=== PATIENT | female | born 1955 | race Caucasian/White ===

== ENCOUNTER 2024-07-03 13:46 | Outpatient (CLI) | payer MEDICARE, SELFPAY ==
--- NOTE | ~2024-07-03 | DEXA_ITS ---
Bone Density Report Name: JOSE ALFREDO BEAVER Age: 69 Sex: Female Ethnicity: White Date of : 1955 Indication: postmenopausal; screening for osteoporosis; Referring Provider: CHARLEY, YUMI Johnson Study: Bone densitometry was performed. Exam Date: July 03, 2024 Accession number: [id number] Bone Density: Region BMD T-score Z-score Classification AP Spine(L1-L4) 1.002 -0.4 1.5 Normal Femoral Neck (Left) 0.688 -1.5 0.2 Osteopenia Total Hip (Left) 0.863 -0.7 0.7 Normal Femoral Neck (Right) 0.716 -1.2 0.4 Osteopenia Total Hip (Right) 0.888 -0.4 0.9 Normal Femoral Neck Mean 0.702 -1.3 0.3 Osteopenia Total Hip Mean 0.876 -0.5 0.8 Normal World Health Organization criteria for BMD impression classify patients as: Normal (T-score at or above -1.0), Osteopenia (T-score between -1.0 and -2.5), or Osteoporosis (T-score at or below -2.5). Clinical Information Provided by Patient: Has used the following medications: Vitamin D Patient maximum height was 61 Menopause Age: 44 Drinks caffeinated beverages Onset of menses at age 13 Number of children 2 Missed period for more than 6 months in a row Impression: The patient has low bone mass, based on the Left Femoral Neck T-score. Discussion: BONE DENSITY IS LOW AT ONE OR MORE SKELETAL SITES. This patient's lowest T-score is low at one or more skeletal sites. It meets the World Health Organization's (WHO) criteria for ?low bone mass? (T-score between -1.0 and -2.5). The patient's 10-year risk of fracture as calculated by FRAX is less than the threshold where pharmacological therapy is recommended by the National Osteoporosis Foundation (NOF). However, all treatment decisions require clinical judgment and consideration of individual patient factors, including patient preferences, comorbidities, previous drug use, risk factors not captured in the FRAX model (e.g., frailty, falls, vitamin D deficiency, increased bone turnover, interval significant decline in bone density) and possible under or overestimation of fracture risk by FRAX. The patient should follow a healthful lifestyle (good nutrition with adequate calcium and vitamin D, and appropriate weight-bearing exercise). Follow-Up: Consider repeating this study in 2 to 3 years to reassess this patient's status, or sooner if there is some new clinical indication. Reported by: RADHA on 07/03/2024 2:06:00 PM. Reviewed, dictated and finalized at location A.
--- OUTSIDE RECORDS SUMMARY | 2024-07-03 14:34 | XMS_ITS | Referral Summary ---
Author Organization [facility] Address [address] [place] [address] Care Team Providers Care Seismic Plotter Name Role Phone Debbie Doran MD Primary Care Provider [phone] Debbie Perkins COMMUNICATIONS EQUIPMENT INSTALLER-[employer] Unavailable [phone] Source Comments [facility],non-owned Affiliates and Associated Physician Practices is amultiple site organization consisting of ambulatory clinics and hospital sitesin [place], [place], [place] and [place]. This disclosure is being madepursuant to the Care Everywhere program and may not contain all information available regarding this patient. Last updated 18.[facility] Encounters Date Type Department Care Team Description 06/06/2024 Refill [facility] - Family Medicine [address] [place] [phone] Cristina Perkins, COMMUNICATIONS EQUIPMENT INSTALLER[employer] Refill Request 04/15/2024 Patient Outreach [facility] - Care Coordination [facility] [place] [phone] Kirsten Bean from Last 3 Months Allergies Active Allergy Reactions Criticality Noted Date Comments Azithromycin Rash Medium 01/10/2023 Hydrocodone-Acetaminoph en Nausea and/or Vomiting 08/31/2009 Lortab Nausea and/or Vomiting 08/31/2009 Metformin Diarrhea,Nausea and/or Vomiting 02/07/2014 Nausea and vomiting Nalbuphine Rash Medium 08/31/2009 Penicillins Urticaria,Rash,Skin Reactions Medium 08/31/2009 Prednisone Urticaria,Rash,Skin Reactions Medium 08/31/2009 blisters Sulfa Antibiotics Urticaria,Rash,Skin Reactions Medium 08/31/2009 Sumatriptan Itching 03/08/2023 Medications * Be aware that medications may not be up to date on this document. Alwaysverify current medications with the patient. Medication Sig Dispensed Refills Start Date End Date Status albuterol (Accuneb) 1.25 MG/3ML nebulizer solution USE 1 VIAL IN NEBULIZER EVERY 6 HOURS NEEDED FOR SHORTNESS OF BREATH Active Apremilast (Otezla) 30 MG Take 1 (one) tablet by mouth 2 times daily Active aspirin EC (Ecotrin) 81 MG tablet Take 1 (one) tablet by mouth once daily Active atorvastatin (Lipitor) 80 MG tablet Take 1 (one) tablet by mouth once daily 4 Active Continuous Glucose Sensor (FreeStyle Naz 2 Sensor Systm) MISC USE DIRECTED 4 TIMES DAILY 4 Active ezetimibe (Zetia) 10 MG tablet TAKE 1 TABLET BY MOUTH ONCE DAILY DIRECTED Active BD Pen Needle Shauna 2nd Gen 32G X 4 MM [facility] [place] USE 1 TO INJECT INSULIN SIX TIMES DAILY 3 Active isosorbide mononitrate CR 24hr (Imdur) 30 MG tablet Take 1 (one) tablet by mouth once daily Active lisinopril (Prinivil; Zestril) 5 MG tablet Take 1 (one) tablet by mouth once daily 3 Active LORazepam (Ativan) 0.5 MG tablet Take 1 (one) tablet by mouth 2 times daily as needed Active metoprolol tartrate IR (Lopressor) 100 MG tablet Take 1 (one) tablet by mouth 2 times daily 3 Active nitroGLYCERIN (Nitrostat) 0.4 MG tablet DISSOLVE ONE TABLET UNDER THE TONGUE EVERY 5 MINUTES NEEDED FOR CHEST PAIN. DO NOT EXCEED A TOTAL OF 3 DOSES IN 15 MINUTES Active ondansetron, disintegrating, (Zofran ODT) 4 MG tablet DISSOLVE 1 TABLET IN MOUTH EVERY 6 HOURS NEEDED FOR NAUSEA Active pregabalin (Lyrica) 75 MG capsule Take 1 (one) capsule by mouth 2 times daily Active Xarelto 20 MG tablet Take 1 (one) tablet by mouth once daily Active Trintellix 20 MG tabletIndication s:Moderate episode of recurrent major depressive disorder (HCC) Take 1 (one) tablet by mouth once daily 90 tablet 1 4 Active blood glucose (FREESTYLE LITE STRIPS) test strip USE 1 STRIP TO CHECK GLUCOSE 4 TIMES DAILY Active Continuous Glucose Airborne Electronics Analyst (FreeStyle Naz 2 [place] Systm) CANDI USE TO TEST BLOOD SUGAR 4 TIMES DAILY Active FreeStyle Lancets MISC USE DIRECTED 4 TIMES DAILY Active Lantus SoloStar penIndications:T ype 2 Diabetes Mellitus Inject 10 (ten) Units subcutaneously every 24 hours Reasons: Type 2 Diabetes 15 mL 1 4 Active albuterol HFA (Proventil; Ventolin; Proair) 108 (90 Base) MCG/ACT inhalerIndicatio ns:Moderate COPD (chronic obstructive pulmonary disease) ([facility]) INHALE 1 TO 2 PUFFS BY MOUTH EVERY 4 HOURS NEEDED 18 g 5 Active albuterol HFA (Proventil; Ventolin; Proair) 108 (90 Base) MCG/ACT inhalerIndicatio ns:Chronic Obstructive Pulmonary Disease INHALE 1 TO 2 PUFFS BY MOUTH EVERY 4 HOURS NEEDED Reasons: Chronic Obstructive Lung Disease 36 g 4 06/10/19 25 Discontinued Active Problems Problem Noted Date Diagnosed Date Other chronic pulmonary embo lism without acute cor pulmonale 03/26/2024 Atherosclerosis of [place] co ronary artery of [place] heart with angina pectoris 03/26/2024 Moderate COPD (chronic obstructive pulmonary dis ease) 02/23/2024 Moderate episode of recurrent major depressive d isorder 02/23/2024 Morbid obesity with BMI of 40.0-44.9, adult 02/04 Immunizations Name Administration Dates Next Due INFLUENZA VACCINE, TRIV. (AF LURIA, FLUZONE TRIVALENT; 6MO+) (IIV3) 03/19/2014 Covid Moderna primary monovalent 12+ yr 0.5mL FLU VACCINE QUAD IIV4 SPLIT 0.25 ML IM 5 FLU VACCINE TRI IIV3 SPLIT PF IM (FLUVIRIN) 05/06 HEP A VACCINE, ADULT 11/15/2013 HEP B VACCINE, ADULT 3 DOSE 11/15/2013, 2 INFLUENZA VACCINE, QUADR. (F LUZONE; FLULAVAL; FLUARIX; AFLURIA QUADRIVALENT; 6MO+), 0.5 ML (IIV4) 04/07/2020,03/22/2019 PNEUMOCOCCAL PPSV23 12/09/2014 Td (Adult), 2 Lf Tetanus Toxoid, Adsorbed, Pf Zoster Hzv Vacc Recombinant Inj Im 03/22/2024, Social History Tobacco Use Types Packs/Day Years Used Date Smoking Tobacco: Never Smokeless Tobacco: Never Tobacco Cessation:Counseling Given: Not Answered Alcohol Use Standard Drinks/Week Comments Yes 0 (1 standard drink = 0.6 oz pur e alcohol) PHQ-2 Answer Date Recorded Patient Health Questionnaire-2 Score 2 03/26/2024 Sex and Gender Information Value Date Recorded Sex Assigned at Not on file Gender Identity Not on file Sexual Orientation Not on file Last Filed Vital Signs Vital Sign Reading Time Taken Comments Blood Pressure 110/51 03/26/2024 2:30 PM CDT Pulse 69 03/26/2024 2:30 PM CDT Temperature 36.9 ??C (98.5 ??F) 03/26/2024 2:30 PM CD T Respiratory Rate 18 03/26/2024 2:30 PM CDT Oxygen Saturation 95% 03/26/2024 2:30 PM CDT Inhaled Oxygen Concentration - - Weight 88.7 kg (195 lb 9.6 oz) 03/26/2024 2:30 P M CDT Height 154.9 cm (5' 1 ) 03/26/2024 2:30 PM CDT Body Mass Index 36.96 03/26/2024 2:30 PM CDT Plan of Treatment Not on file Procedures Procedure Name Priority Date/Time Associated Diagnosis Comments HEMOGLOBIN A1C - POINT OF CARE (AMB) Routine 02/23/2024 1:33 PM CDT Type 2 diabetes mellitus with diabetic polyneuropathy, with long-term current use of insulin (HCC) MAMMO BILAT SCREENING W SAMUEL Routine 01/02/2024 3:10 PM CDT Encounter for screening mammogram for malignant neoplasm of breast from Last 3 Months or Most Recently Relevant to Health Maintenance Results * HEMOGLOBIN A1C - POINT OF CARE (HgbA1C) (02/23/2024 1:33 PM CDT) Hemoglobin A1c POCT 7.6 % [facility] [place] Expiration Date [facility] [place] Lot # [id number] [facility] [place] QC Verified Yes Yes [facility] [place] Blood BLOOD SPECIMEN / Unknown 02/23/2024 1:33 PM CDT Cristina Perkins COMMUNICATIONS EQUIPMENT INSTALLER-[employer] LAB - POINT OF CARE ORDERABLES [facility] [place] [phone] * Mammo Bilat Screening W Samuel (01/02/2024 3:10 PM CDT) Anatomical Region Laterality Modality Breast Bilateral Mammography 01/16/2024 11:2 1 AM CDT Impressions 01/16/2024 1:18 PM CDT : There is no mammographic evidence of malignancy. OVERALL FINAL ASSESSMENT: BI-RADS Category 1: Negative. Annual screening mammography is recommended. > Interpreting Provider: Hemalatha Little MD on 01/16/2024 1:18 PM Narrative 01/16/2024 1:18 PM CDT EXAMINATION: BILATERAL DIGITAL SCREENING MAMMOGRAM AND BILATERAL BREAST TOMOSYNTHESIS HISTORY: Screening. COMPARISON: This is the patient's baseline mammogram. . TECHNIQUE: ??BILATERAL digital breast tomosynthesis (DBT) and synthetic 2D digital mammogram images were obtained (bilateral craniocaudal and mediolateral oblique projections) including computer aided detection (CAD.) BREAST PARENCHYMAL COMPOSITION:Category B: There are scattered areas of fibroglandular density. MAMMOGRAM FINDINGS: There are no suspicious masses, calcifications, or areas of architectural distortion in either breast. Debbie Doran MD MAMMO ORDERABLES from Last 3 Months or Most Recently Relevant to Health Maintenance Care Teams Seismic Plotter Relationship Specialty Start Date End Date Debbie Doran MD [address] [place] [address] PCP - General Family Medicine 02/23/24 Debbie Perkins, COMMUNICATIONS EQUIPMENT INSTALLER[employer] [address] [place] [phone] PCP - [facility], [facility] 03/05/24
--- OUTSIDE RECORDS SUMMARY | 2024-07-03 14:34 | XMS_ITS | Data Portability ---
Author Organization Formerly [facility] in [facility] Address [address] [place] [address] Care Team Providers Care Radiation Technician Name Role Phone DOC POOLE Referring Provider [phone] NATALIE KIMBROUGH Pain Management Unavailable MARK FLEMING Primary Care Provider Assessment Encounter Date Assessment Date Assessment LastModified by Organization Details LastModified Time 06/19/2020 06/19/2020 65-year-old female with a history of neck pain that began about 6 months ago without incident. She complains of a constant aching throbbing burning pain in the right cervical paraspinal region with radiation of the right trapezius muscle into the shoulder joint and then diffusely in the right upper extremity all the way to the fingers. She does report some paresthesias and weakness in the upper extremities as well. Of note she has seen Dr. Villa who did not feel surgery is warranted and has recently seen Dr. Poole She has a CT myelogram which shows severe right-sided foraminal stenosis at C6-7, with moderate central stenosis. She has a large disc osteophyte complex at this level. She also has some moderate stenosis mostly on the left at C5-6 and some left-sided foraminal stenosis at that level as well. She has done physical therapy from February 2020 to present day and goes twice weekly without any long-term benefit She is currently taking gabapentin and Percocet with some relief in her symptoms. On examining her today she does seem to have symptomatic stenosis. Unfortunately we cannot do her injection today in the office because we have to get approval to get her off her blood thinner and we have not heard back yet from this. We will go ahead and order the injection and once we get approval to get off her blood thinner we will call her to schedule. She will plan on following up with Dr. Lauren? c re after the injection is completed. Not available 06/19/2020 10:01:22 09/08/2020 09/08/2020 65-year-old female with a history of neck pain that began in 2019. She complains of a constant aching, throbbing pain in the right cervical paraspinal region with intermittent radicular pain down the right arm stopping at the hand. She reports radicular pain is worse than neck pain. She does report paresthesias in the right arm, as well as some subjective weakness. She has had surgical consultation with Dr. Poole and he recommended she trial injection therapy. She has a CT myelogram which shows severe right-sided foraminal stenosis at C6-7, with moderate central stenosis. She has a large disc osteophyte complex at this level. She also has some moderate stenosis mostly on the left at C5-6 and left-sided foraminal stenosis at that level. She has recently attended physical therapy and continues a home exercise program as tolerated. 07/03/2020 : #1 KEVYN Right C6/C7: 75% pain relief lasting until next injection. 08/07/2020: #2 KEVYN C6/7: 80% pain relief lasting 5 days then weaning back to normal as of 09/08/2020. She is currently taking Gabapentin and Percocet from her PCP. We do not prescribe her any medications. Today I have instructed the pt to follow up with Dr. Poole. She may follow up with our services as needed. [email or web address] Not available 09/08/2020 16:31:46 Plan of Treatment Reminders Order Date Submit Date Provider Last Modified By Organization Details Last Modified Time Details Appointments None recorded. Lab None recorded. Referral None recorded. Procedures epidural steroid injection, cervical (PROC) - #1 KEVYN Rt. C6/C7 2020 021 [email or web address] Not available 16:14:01 epidural steroid injection, cervical (PROC) - #2 KEVYN C6/C7-- cardiac clearance 2020 021 [email or web address] Not available 12:06:15 Surgeries None recorded. Imaging None recorded. Medication Orders None recorded. Patient TargetsNo targets recorded. Patient Instructions Encounter Date Encounter Id Patient Instructions Last Modified By Organization Details Last Modified Time 06/19/2020 [id number] cardiac clearance* - Pt. is scheduled for KEVYN injection and is currently taking Xarelto and ASA. We are asking pt. to hold Xarelto 3 days prior and ASA 7 days prior to injection. Please fax cardiac clearance to [phone] LEYLA thank you. [email or web address] Not available 07/10/2020 11:34:22 Opioid Risk Tool (ORT)* Not available 06/19/2020 11:22:25 Much of this encounter is an electronic cocktail waitress/tra nslation of spoken language to printed text. The electronic translation of spoken language may permit erroneous or at times nonsensical words of phrases to be inadvertently transcribed; Although I have reviewed the note for such errors, some may still exist. Not available 06/19/2020 10:02:40 08/07/2020 [id number] cervical disc disease: care instructions Not available 08/07/2020 16:14:29 09/08/2020 [id number] [email or web address] Not available 11/2020 15:37:01 Reason for Referral None Reported. Results Created Date Observation Date Name Description Value Unit Range Abnormal Flag Note LastModifiedBy Organization Detail LastModifiedTime 06/15/19 21 03/26/2020 CT, cervi margot spine , post- myelo gram No observ ation record ed. [email or web address] Not Available 2020 08:24:17 Result Notes None recorded. Problems Name Problem SNOMED Code Status Onset Date Resolution Date Notes Provider Name and Address Organization Details Recorded Time Neck pain 89577870 Active Jessie Restrepoa ANGEL stern - [facility] 09:29:10 Cervical spondylosis 251207770 Active Jessie Trang null, ANGEL - [facility] 09:29:29 Degeneration of cervical intervertebra l disc 14775181 Active 2020 Sherry Cervantes, [employer] [address] [place], [address] , [facility] 16:31:52 Cervical radiculopathy 55230991 Active 2020 Sherry Cervantes APRN [address] [place], [address] , [facility] 16:31:53 Problem Notes None recorded. Procedures Surgical History Date Name Laterality Status Provider Name and Address Organization Details Recorded Time 08/08/19 21 Cervical Epidural Steroid Injection: Interlaminar completed Natalie Kimbrough MD [address] [place], [address], [facility] 08/07/2020 16:14:27 07/03/19 21 Cervical Epidural Steroid Injection: Interlaminar completed September Ramirez [facility] 07/03/2020 16:05:13 06/05/19 19 coronary artery bypass grafts x 2 completed [facility] 06/19/2020 09:30:28 06/05/19 18 Unlisted px salivry glnd/dux completed [facility] 06/19/2020 09:30:44 06/05/19 09 cardiac pacemaker procedure completed [facility] 06/19/2020 09:31:02 Imaging Results Imaging Date Name Status LastModified by Organiz ation Details LastModified Time 03/26/2020 CT, cervical spine, post-myelogra m completed [email or web address] Information not available 06/15/2020 08:24:17 Procedure Notes None recorded. Medical Equipment None Reported. Allergies Allergen ID Allergen Name Allergen Category Reaction Reaction Severity Criticality Documentation Date Start Date Code Code System Note Provider Name and Address Organization Details Recorded Time 089353 azithromy ryanne medicatio n rash Not available Not available 06/19/2020 51556 RxNorm Jessie stern [facility] 09:22:15 005303 Product containin g penicilli n and antibioti c (product) medicatio n Not available Not available Not available 06/19/2020 01357 05 [facility] 09:22:29 679340 Substance with sulfonami de structure and antibacte rial mechanism of action (substanc e) medicatio n Not available Not available Not available 06/19/2020 18008 8003 SNOMED ANGEL [facility] 09:22:34 965668 metformin medicatio n Not available Not available Not available 06/19/2020 6809 RxNorm ANGEL [facility] 09:22:58 Medications Name Sig Start Date Stop Date Status Note LastModified by Organization Details LastModified Time atorvastati n 40 mg tablet TAKE 1 TABLET BY MOUTH ONCE DAILY active Not Available Not Available No t Available atorvastati n 80 mg tablet TAKE 1 TABLET BY MOUTH ONCE DAILY 09/08 completed Not Available Not Available Not Available dexamethaso ne 6 mg tablet Take 1 tablet every day by oral route. 09/08 completed Not Available Not Available Not Available aspirin 81 mg tablet,steffen yed release Take 1 tablet every day by oral route. active Not Available Not Available No t Available Imitrex 50 mg tablet Take by oral route. active Not Available Not Available No t Available oxycodone-a cetaminophe n 5 mg-325 mg tablet TAKE 1 TABLET BY MOUTH TWICE DAILY NEEDED active Not Available Not Available No t Available lorazepam 0.5 mg tablet TAKE 1 TABLET BY MOUTH THREE TIMES DAILY NEEDED FOR ANXIETY active Not Available Not Available No t Available methocarbam ol 750 mg tablet TAKE 1 TABLET BY MOUTH 4 TIMES DAILY FOR 6 DAYS 06/19 completed Not Available Not Available Not Available ferrous sulfate 325 mg (65 mg iron) tablet TAKE 1 TABLET BY MOUTH ONCE DAILY WITH BREAKFAST 2020 active Not Available Not Available Not Avai lable hyoscyamine 0.125 mg sublingual tablet DISSOLVE 1 TABLET IN MOUTH EVERY 4 HOURS FOR CRAMPING 09/08 completed Not Available Not Available Not Available nitroglycer in 0.4 mg sublingual tablet DISSOLVE ONE TABLET UNDER THE TONGUE EVERY 5 MINUTES NEEDED FOR CHEST PAIN. DO NOT EXCEED A TOTAL OF 3 DOSES IN 15 MINUTES 01/15/ 2021 active Not Available Not Available Not Avai lable gabapentin 300 mg capsule TAKE 1 CAPSULE BY MOUTH THREE TIMES DAILY 06/19 completed Not Available Not Available Not Available oxycodone-a cetaminophe n 7.5 mg-325 mg tablet TAKE 1 TABLET BY MOUTH EVERY 6 HOURS NEEDED FOR PAIN 06/19 completed Not Available Not Available Not Available methylpredn isolone 4 mg tablets in a dose pack TAKE BY MOUTH DIRECTED ON INSIDE OF PACKAGE 06/19 completed Not Available Not Available Not Available ondansetron 4 mg disintegrat ing tablet DISSOLVE 1 TABLET IN MOUTH EVERY 8 HOURS NEEDED FOR NAUSEA active Not Available Not Available No t Available diazepam 5 mg tablet TAKE 1 TABLET BY MOUTH EVERY 12 HOURS NEEDED FOR MUSCLE SPASM 06/19 completed Not Available Not Available Not Available Vitamin B12 100 mcg tablet Take by oral route. active Not Available Not Available No t Available insulin lispro (U-100) 100 unit/mL subcutaneou s pen active Not Available Not Available Not Available ezetimibe 10 mg tablet TAKE 1 TABLET BY MOUTH ONCE DAILY active Not Available Not Available No t Available insulin aspart (U-100) 100 unit/mL (3 mL) subcutaneou s pen INJECT 20 UNITS SUBCUTANE OUSLY 4 TIMES DAILY WITH MEALS PLUS AGGRESSIV E SLIDING SCALE FOUR TIMES DAILY NEEDED WITH MEALS AND BEDTIME SNAC 2020 active Not Available Not Available Not Avai lable metoprolol tartrate 25 mg tablet TAKE 1 TABLET BY MOUTH TWICE DAILY 2020 active Not Available Not Available Not Avai lable pregabalin 50 mg capsule TAKE 1 CAPSULE BY MOUTH AT BEDTIME FOR 2 DAYS THEN TAKE 1 TWICE DAILY 06/19 completed Not Available Not Available Not Available pregabalin 75 mg capsule active Not Available Not Available Not Available FreeStyle Lite Strips USE 1 STRIP TO CHECK GLUCOSE 4 TIMES DAILY 06/19 completed Not Available Not Available Not Available Xarelto 20 mg tablet TAKE 1 TABLET BY MOUTH ONCE DAILY active Not Available Not Available No t Available Otezla 30 mg tablet active Not Available Not Available No t Available Levemir FlexTouch U-100 Insulin 100 unit/mL (3 mL) subcutaneou s pen INJECT 70 UNITS SUBCUTANE OUSLY ONCE DAILY IN THE MORNING 2020 active Not Available Not Available Not Avai lable Jardiance 25 mg tablet TAKE 1 TABLET BY MOUTH ONCE DAILY FOR 90 DAYS active Not Available Not Available No t Available Rexulti 1 mg tablet TAKE 1 TABLET BY MOUTH AT BEDTIME active Not Available Not Available No t Available cholecalcif maria del rosario (vit D3) 1,000 unit-vitami n K2 (MK4) 100 mcg tablet Take by oral route. active Not Available Not Available No t Available Repatha SureClick 140 mg/mL subcutaneou s pen injector INJECT 1 ML SUBCUTANE OUSLY EVERY 2 WEEKS DIRECTED active Not Available Not Available No t Available Trintellix 20 mg tablet TAKE 1 TABLET BY MOUTH ONCE DAILY active Not Available Not Available No t Available FreeStyle Naz 14 Day Sensor kit USE DIRECTED TO CHECK BLOOD SUGAR 4 TIMES DAILY. CHANGE SENSOR EVERY 14 DAYS. active Not Available Not Available No t Available BD Shauna 2nd Gen Pen Needle 32 gauge x 5/32 USE 1 NEEDLE 4 TIMES DAILY active Not Available Not Available No t Available Vitals Date Recorded Body height Provider Name an d Address Organization Details Last Updated DateTime 06/19/2020 152.4 cm Jessie ORTIZ [facility] 06/19/2020 09:20:59 Date Recorded Body mass index (BMI) Body weight Provider Name and Address Organization Details Last Updated DateTime 06/19/2020 42 kg/m2 57550.36 g Jessie ORTIZ - [facility] 06/19/2020 09:21:06 Date Recorded Body height Provider Name an d Address Organization Details Last Updated DateTime 09/08/2020 152.4 cm Anel ORTIZ [facility] 09/08/2020 15:56:00 Date Recorded Body mass index (BMI) Body weight Provider Name and Address Organization Details Last Updated DateTime 09/08/2020 42.2 kg/m2 17382.95 g Anel ORTIZ - [facility] 09/08/2020 15:56:09 Social History Question Answer Notes LastModified by Organizat ion Details LastModified Time Tobacco Smoking Status Never Smoker Jessie stern [facility] 06/19/2020 09:29:58 What Is Your Level Of Alcohol Consumption? Occasional Information not available 06/19/2020 Which Illicit Or Recreational Drugs Have You Used? Denies Information not available 06/19/2020 Do You Or Have You Ever Used E-cigarettes Or Vape? Never Used Electronic Cigarettes Information not available 09/08/2020 Education 12 Information no t available 09/08/2020 Prescription Drug Abuse No Information not available 06/19/2020 History Of Sexual Abuse No Information not available 06/19/2020 What Was The Date Of Your Most Recent Tobacco Screening? 09/08/2020 Information not available 09/08/2020 Do You Or Have You Ever Used Smokeless Tobacco? Never Used Smokeless Tobacco Information not available 09/08/2020 How Much Tobacco Do You Smoke? No Information not available 09/08/2020 On What Date Was Tobacco Cessation Counseling Provided? 09/08/2020 Information not available 09/08/2020 How Many Years Have You Smoked Tobacco? 0 Information not available 09/08/2020 Sex: Unknown Functional Status Question Answer Note LastModified by Organizat ion Details LastModified Time What is your exercise level? Occasional Information not available 09/08/2020 Mental Status None recorded. Family History Relationship Description Onset Age of this Age Resolved Age Notes LastModified by Organization Details LastModified Time Paternal Grandfather Diabetes mellitus Not available 2020 09:22:18 Paternal Grandmother Diabetes mellitus Not available 2020 09:22:18 Sister Diabetes mellitus Not available 2020 09:22:18 Medical History Condition Response Bipolar Disease N Coronary Artery Disease N Gout N Seizure Disorder N Thyroid Disease N Atrial Fibrillation Y Hernia N Head Trauma/Injury N COPD Y Depression Y Anxiety Disorder Y Acid Reflux (GERD) N Cancer N Skin Disorder N Stroke Y High Cholesterol Y Liver Disease N Rheumatoid Arthritis N Fibromyalgia Y Headaches Y Autoimmune Disease N Kidney Disease N Osteoarthritis N Neurosurgery N DVT Y Peptic Ulcer Disease N Anemia Y Heart Attack (MT) N Diabetes Y Cardiomyopathy N Bleeding Disorder Y CHF N AIDS/HIV N Inflammatory Bowel Disease N Dementia N Asthma N Substance Abuse N Sleep Apnea N Hepatitis N Heart Disease N Pulmonary Embolism Y Chronic Low Back Pain N Hypertension Y Osteoporosis N Gynecological HistoryNo gynecological history recorded. Obstetrics History GPAL:G 0 P 0 0 0 0 Past Encounters Encounter ID Performer Location Encounter Start Date Encounter Closed Date Diagnosis/Indication Diagnosis SNOMED-CT Code Diagnosis ICD10 Code Diagnosis Note [id number] MD Henry Pacheco [place] [address] [address] [place], [place] [address] [place] [address] 3 06/19/2020 09:04:10 06/19/2020 10:03:33 Cervical spondylosis 429225923 M47.812 Long-term drug therapy 573596082 Z79.899 ORT and PHQ-9 testing was completed to evaluate the patient's psychosoci al health to better determine baseline risk as we consider initiating opioid medication s. The patient's ORT score of 1 indicates low risk potential for medication misuse. The patients PHQ-9 of 5 indicates mild depression . [id number] MD Henry Pacheco [facility] [address] [place], [place] [address] [place] [address] 3 07/03/2020 15:13:18 07/03/2020 15:58:03 Degeneration of cervical intervertebral disc 56873159 M50.30 [id number] MD Henry Pacheco [place] [address] [address] [facility] [address] [place], [place] [address] [place] [address] 3 08/07/2020 15:08:38 08/07/2020 15:49:19 Degeneration of cervical intervertebral disc 79134265 M50.30 [id number] CORA [place] [address] [address] [place], [place] [address] [place] [address] 3 09/08/2020 15:46:44 09/08/2020 16:11:22 Degeneration of cervical intervertebral disc 15154633 M50.30 Cervical radiculopathy 81161039 M54.12 Health Concerns Section Related Observation LastModified by Organization Detai ls LastModified Time None Recorded Concern Status LastModified by Organization Details LastModified Time None Recorded Advance Directives Directive None Recorded Payers Encounter Date Sequence Insurance Name Policy Number Policy Shah Covered Member ID Shah Member ID Guarantor Name 06/19/2020 1 [place] (MEDICARE REPLACEMENT/AD VANTAGE - HMO) [id number] Donna Romo [id number] Donna De León Demetrius 06/19/2020 2 [place] [facility] Donna Tenoriowood [id number] Donna De León Demetrius 07/03/2020 1 [place] (MEDICARE REPLACEMENT/AD VANTAGE - HMO) [facility] Donna Romo [id number] Donna De León [place] 07/03/2020 2 [place] [facility] FFS Donna Tenoriowood [id number] Donna De León [place] 08/07/2020 1 [place] (MEDICARE REPLACEMENT/AD VANTAGE - HMO) [facility] Donna Tenoriowood [id number] Donna De León [place] 08/07/2020 2 [place] [facility] S Donna Tenoriowood [id number] Donna J [place] 09/08/2020 1 [place] (MEDICARE REPLACEMENT/AD VANTAGE - HMO) [facility] Donna Tenoriowood [id number] Donna J Demetrius 09/08/2020 2 MEDICAID-[place]: [facility] - TRADITIONAL S Donna Tenoriowood [id number] Donna De León [place] Notes Date Note Type Note Provider Name and Address Organization Details Recorded Time 06/19/2020 text/html Neck pain (2)Reported bypatient.Onset:alessandra e of onset: (01/2020) Location:right paraspinal (referring to right shoulder, right trapezius, and diffuse RUE stopping in the fingers); radiating to the right upper extremity to the hand Context:started without cause Quality:aching; burning; gnawing; stabbing (constant); throbbing; sharp; dull Severity:current pain level: 8/10; worst pain level: 10/10 Alleviating Factors:elevation Aggravating Factors:arm hanging Timing:constant Associated Symptoms:no swelling; no popping/clicking; no bowel incontinence; no urinary retention; no urinary incontinence; no perineal paresthesia/anesthe ronak; no issues with balance/coordinatio n;weakness(RUE);num bness(RUE);tingling (RUE);pain radiating into the upper extremities(diffuse RUE) Prior Imaging:myelogram (03/26/2020 CT Cervical spine) Previous Cervical Surgery:recent surgical evaluation: (Dr. Villa - no f/u appt. at this time) Previous Injections:none Previous physical therapy:currently in PT: (OA: 02/2020 - current 2x's weekly - No improvement) Daily Activities:Living independently.; Able to bathe/groom without assistance.;Difficu lty completing bladder blower secondary to pain.; Walking without assistance or significant difficulty; Working without restriction.;Diffic ulty exercising on a regular basis secondary to pain.; Participating in recreation on a regular basis. Prior Pain Management:noNotes: Prior Medication History NSAID's: Muscle Relaxers: Neuropathic Meds: Gabapentin - effective Narcotic Meds: Percocet - Effective Previous Treatment Physical Therapy: OA 02/2020- current 2x's weekly - no improvement Prior pain management: denies Eval by Surgeon: DR. Daisy Iniguez f/u appt Injection Therapy: Denies Imaging: CT Other:Denceleste Kimbrough MD [address] [place] [address], [id number] - [facility] 06/19/2020 10:03:24 09/08/2020 text/html Follow-up (meds & injections)Reported bypatient.Improveme nt:Pain is the same as compared to last visit.; Patient denies any changes in pain Current Analgesics:[facility] From [facility] Pain Scores:Current pain- 3/10; Worst pain- 10/10 Aberrant Behaviors:patient denies Physical Therapy:patietn denies Recent Injections:NoneNeck pain (2)Reported bypatient.Onset:alessandra e of onset: (01/2020) Location:right paraspinal; radiating to the right upper extremity to the hand Context:started without cause Quality:aching; burning; gnawing; stabbing (constant); throbbing; sharp; dull Severity:current pain level: 3/10; worst pain level: 10/10 Alleviating Factors:elevation Aggravating Factors:arm hanging Timing:constant Associated Symptoms:no swelling; no popping/clicking; no bowel incontinence; no urinary retention; no urinary incontinence; no perineal paresthesia/anesthe ronak; no issues with balance/coordinatio n;weakness(RUE);num bness(RUE);tingling (RUE);pain radiating into the upper extremities Prior Imaging:myelogram (03/26/2020 CT Cervical spine) Previous Cervical Surgery:recent surgical evaluation: (Dr. Villa - no f/u appt. at this time) Previous Injections:none Previous physical therapy:currently in PT: (OA: 02/2020 - current 2x's weekly - No improvement) Daily Activities:Living independently.; Able to bathe/groom without assistance.;Difficu lty completing bladder blower secondary to pain.; Walking without assistance or significant difficulty; Working without restriction.;Diffic ulty exercising on a regular basis secondary to pain.; Participating in recreation on a regular basis. Prior Pain Management:noNotes: Sherry Cervantes APRN [address] [place], [address], [facility] 09/08/2020 16:52:47 OBGyn Episode No OBEpisode recorded.
--- OUTSIDE RECORDS SUMMARY | 2024-07-03 14:34 | XMS_ITS | Clinical Summary ---
Author Organization [facility] Address [address] [place] [address] Care Team Providers Care It Sales Executive Name Role Phone Debbie Doran MD Primary Care Provider [phone] Debbie Perkins FLORAL MANAGER-CONCRETE LABORER Unavailable [phone] Source Comments [facility],non-owned Affiliates and Associated Physician Practices is amultiple site organization consisting of ambulatory clinics and hospital sitesin [place], [place], [place] and [place]. This disclosure is being madepursuant to the Care Everywhere program and may not contain all information available regarding this patient. Last updated 18.[facility] Allergies Active Allergy Reactions Criticality Noted Date [...] Shauna 2nd Gen 32G X 4 MM MISC USE 1 TO INJECT INSULIN SIX TIMES [...] GLUCOSE 4 TIMES DAILY Active Continuous Glucose Pipe Cutter (FreeStyle Naz 2 Willard Systm) CANDI USE TO TEST BLOOD SUGAR 4 TIMES DAILY Active FreeStyle Lancets MISC USE DIRECTED 4 TIMES DAILY Active Lantus SoloStar penIndications:T ype 2 Diabetes Mellitus Inject 10 (ten) Units subcutaneously every 24 hours Reasons: Type 2 Diabetes 15 mL 1 4 Active albuterol HFA (Proventil; Ventolin; Proair) 108 (90 Base) MCG/ACT inhalerIndicatio ns:Moderate COPD (chronic obstructive pulmonary disease) (HCC) INHALE 1 TO 2 PUFFS BY MOUTH [...] without acute cor pulmonale 03/26/2024 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 03/26/2024 Moderate COPD (chronic obstructive pulmonary dis ease) 02/23/2024 Moderate episode of recurrent major depressive d isorder 02/23/2024 Morbid obesity with BMI of 40.0-44.9, adult 02/04 Encounters Date Type Department Care Team Description 06/06/2024 Refill [facility] - Family Medicine [address] [place] [address] [phone] Cristina Perkins, FLORAL MANAGER-CONCRETE LABORER Refill Request 04/15/2024 Patient Outreach [facility] - Care Coordination [address] [place] [phone] Kirsten Bean from Last 3 Months Immunizations Name Administration Dates Next Due INFLUENZA [...] Zoster Hzv Vacc Recombinant Inj Im 03/22/2024, Family History Medical History Relation Name Comments Cancer - Breast Neg Hx Relation Name Status Comments Brother Alive Father Mother Sister Alive Social History Tobacco Use Types Packs/Day Years [...] 03/26/2024 2:30 PM CDT Plan of Treatment Health Maintenance Due Date Last Done Comments BONE DENSITY TESTING 1955 COLOGUARD (AGES 45-75) - COLON CA SCREENING 1957 COLON MONITORING 1957 COLONOSCOPY - COLON CA SCREENING 1957 CT COLONOGRAPHY - COLON CA SCREENING 1955 Colorectal Cancer Screening 1955 FIT - COLON CA SCREENING 1957 FLEX SIG - COLON CA SCREENING 1955 HEPATITIS C SCREENING 05/28/1975 DTAP/TDAP/TD VACCINES (1 - Tdap) 02/07/1992 02/06/1992 HEPATITIS B VACCINE (3 of 3 - 19+ 3-dose series) 01/10/2014 11/15/2013, 11/16/1991 PNEUMOCOCCAL VACCINE 50+ (2 of 2 - PCV) 12/10/2015 12/09/2014 Respiratory Syncytial Virus (RSV) Vaccine Pt: or over 60 yrs (1 - Risk 60-74 years 1-dose series) 2017 DEPRESSION SCREENING 06/05/2024 02/23/2024 MEDICARE AWV ? CALENDAR YEAR 2024 03/26/2024 COVID-19 VACCINE ( - season) 2025 08/19/2020, 07/13/2020 Postponed from 02/04/2024 (Patient Refused) INFLUENZA VACCINE (#1) 2025 , 03/22/2019, 05/31/2018, Additional history exists Postponed from 02/04/2024 (Patient Refused) MAMMOGRAM 01/01/2026 01/02/2024, 08/04, 08/23/2021, Additional history exists SCREENING FOR DIABETES 02/22/2027 02/23/2024 ZOSTER VACCINE Completed 03/22/2024, 01/06/2024 HIB VACCINE Aged Out No longer eligi ble based on patient's age to complete this topic HPV VACCINE Aged Out No longer eligi ble based on patient's age to complete this topic MENINGOCOCCAL (Group B) VACCINE Aged Out No longer eligible based on patient's age to complete this topic MENINGOCOCCAL VACCINE Aged Out No mitali shaka eligible based on patient's age to complete this topic Procedures Procedure Name Priority Date/Time Associated Diagnosis [...] % [facility] [place] Expiration Date SSPRADIP [facility] [place] Lot # [id number] S[facility]RE[place] QC Verified Yes Yes RACHEL [facility] [place] Blood BLOOD SPECIMEN / Unknown 02/23/2024 1:33 PM CDT Cristina Perkins FLORAL MANAGER-CONCRETE LABORER LAB - POINT OF CARE ORDERABLES AARTIG [facility] [place] [address] [place] [address] [phone] * Mammo Bilat Screening W Samuel (01/02/2024 [...] Recently Relevant to Health Maintenance Care Teams It Sales Executive Relationship Specialty Start Date End Date Debbie Doran MD [address] [place] [address] PCP - General Family Medicine 02/23/24 Debbie Perkins, FLORAL MANAGER-CONCRETE LABORER [address] [place] [phone] PCP - Attributed-[facility] 03/05/24
--- OUTSIDE RECORDS SUMMARY | 2024-07-03 14:34 | XMS_ITS | Data Portability ---
Author Organization [facility] Address [address] [facility] [place] [address] Care Team Providers Care Draw Operator Name Role Phone NAYANA WHITEHEAD Primary Care Provider Assessment No assessment recorded. Plan of Treatment Reminders Order Date Submit Date Provider Last Modified By Organization Details Last Modified Time Details Appointments ANY 30 2024 02:00P M Nayana Whitehead MD Not available Not available Not available Lab HbA1c (hemoglo bin A1c), blood 2023 raymond In-Office Order, Internal Use Only DO Not Attach Compendium DO Not Attach Compendium, Do Not Delete/merge, [id number] 04/29/2024 13:04:25 Referral ophthalm ologist referral 2023 [facility], [address], [place], [address], 05/10/2024 11:44:24 orthoped ic surgeon referral - history of complete tear of right rotator cuff, injectio n one year ago was helpful 2023 ESTEBAN Cotto MD, [address], [place], [address], 07/01/2024 04:59:23 Procedures None recorded . Surgeries None recorded . Imaging DEXA 2023 [facility] (Imaging), [address], [place], [address], 06/12/2024 12:58:33 US, doppler, arterial - could not get left pedal pulse 2023 [facility] ([facility]), [address] [facility] [address], [place], [address], 06/12/2024 12:48:59 Medication Orders Trintell ix 20 mg tablet 2023 [facility], [address] [facility], [place], [address], 04/30/2024 18:59:25 Otezla 30 mg tablet 2023 [facility] [address], [address] [place] [address], [place], [address], 04/30/2024 18:59:27 Patient TargetsNo targets recorded. Patient Instructions Encounter Date Encounter Id Patient Instructions Last Modified By Organization Details Last Modified Time 05/15/2024 [id number] type 2 diabetes: care instructions [email or web address] Not available 05/15/2024 15:28:30 No diabetic ocular comp. msafi Not available 05/15/2024 15:28:04 Reason for Referral Academic Hospitalist Referral for Type 2 diabetes mellitus Referring Physician: Nayana Whitehead [facility], Encounter Date: 04/29/2024 Orthopedic Surgeon Referral for Rupture of rotator cuff of right shoulder history of complete tear of right rotator cuff, injection one year ago was helpful Referring Physician: Nayana Whitehead [facility], Encounter Date: 04/29/2024 Results Created Date Observation Date Name Description Value Unit Range Abnormal Flag Note LastModifiedBy Organization Detail LastModifiedTime 04/29/2004/29/2024 HbA1c (hemo globi n A1c), blood HbA1c 7.6 Not Available In-Office Order Internal Use Only DO Not Attach Compendium DO Not Attach Compendium, Do Not Delete/merge, [id number] 04/29/2024 10:59:57 05/27/20 24 05/30/2024 URINE CULTU RE, ROUTI NE urine culture, routine FINAL REPORT abnormal Not Available [facility] ([facility]) [address] [facility], [place], [address], 05/30/2024 20:07:39 05/27/20 24 05/30/2024 URINE CULTU RE, ROUTI NE result 1 ESCHER ICHIA COLI abnormal Cefaz sandra <=4 ug/mL Cefaz sandra with an ELIS <=16 predi cts susce ptibi lity to the oral agent s cefac kami, cefdi heather, cefpo doxim e, cefpr ozil, cefur oxime , cepha lexin , and lorac arbef when used for thera py of uncom plica mathew urina ry tract infec tions due to E. coli, Klebs iella pneum oniae , and Prote us mirab ilis. 50,00 0-100 ,000 colon y formi ng units per mL Multi -Drug Resis tant Organ ism Not Available [facility] ([facility]) [address] [facility], [place], [address], 05/30/2024 20:07:39 05/27/20 24 05/30/2024 URINE CULTU RE, ROUTI NE antimicrobia l susceptibili ty COMMEN T S = Susce ptibl e; I = Inter media te; R = Resis tant P = Posit keyla; N = Negat keyla MICS are expre ssed in micro grams per mL Antib iotic RSLT# 1 RSLT# 2 RSLT# 3 RSLT# 4 Amoxi cilli n/Cla vulan ic Acid S Ampic illin R Cefep kemal S Ceftr iaxon e S Cefur oxime S Cipro floxa ryanne R Ertap enem S Genta micin S Imipe nem S Levof loxac in R Merop enem S Nitro furan toin S Piper acill in/Ta zobac maurer S Tetra cycli ne S Tobra mycin S Trime thopr im/Bartholomew lfa R Not Available [facility] ([facility]) [address] [facility], [place], [address], 05/30/2024 20:07:39 05/27/20 24 05/27/2024 urina lysis , dipst ick Leukocytes Small Not Available In-Offi ce Order Internal Use Only DO Not Attach Compendium DO Not Attach Compendium, Do Not Delete/merge, [id number] 05/27/2024 12:53:53 05/27/20 24 05/27/2024 urina lysis , dipst ick Nitrite negati ve Not Available In-Office Order Internal Use Only DO Not Attach Compendium DO Not Attach Compendium, Do Not Delete/merge, [id number] 05/27/2024 12:53:53 05/27/20 24 05/27/2024 urina lysis , dipst ick Urobilinogen .2 Not Available In-Of fice Order Internal Use Only DO Not Attach Compendium DO Not Attach Compendium, Do Not Delete/merge, [id number] 05/27/2024 12:53:53 05/27/20 24 05/27/2024 urina lysis , dipst ick Protein Negati ve Not Available In-Office Order Internal Use Only DO Not Attach Compendium DO Not Attach Compendium, Do Not Delete/merge, [id number] 05/27/2024 12:53:53 05/27/20 24 05/27/2024 urina lysis , dipst ick pH 5.0 Not Available In-Office Order Internal Use Only DO Not Attach Compendium DO Not Attach Compendium, Do Not Delete/merge, [id number] 05/27/2024 12:53:53 05/27/20 24 05/27/2024 urina lysis , dipst ick Blood Small Not Available In-Office Order Internal Use Only DO Not Attach Compendium DO Not Attach Compendium, Do Not Delete/merge, [id number] 05/27/2024 12:53:53 05/27/20 24 05/27/2024 urina lysis , dipst ick Specific [place] 1.030 Not Available In-Off ice Order Internal Use Only DO Not Attach Compendium DO Not Attach Compendium, Do Not Delete/merge, [id number] 05/27/2024 12:53:53 05/27/20 24 05/27/2024 urina lysis , dipst ick Ketone Negati ve Not Available In-Office Order Internal Use Only DO Not Attach Compendium DO Not Attach Compendium, Do Not Delete/merge, [id number] 05/27/2024 12:53:53 05/27/20 24 05/27/2024 urina lysis , dipst ick Bilirubin Negati ve Not Available In-Office Order Internal Use Only DO Not Attach Compendium DO Not Attach Compendium, Do Not Delete/merge, [id number] 05/27/2024 12:53:53 05/27/20 24 05/27/2024 urina lysis , dipst ick Glucose Negati ve Not Available In-Office Order Internal Use Only DO Not Attach Compendium DO Not Attach Compendium, Do Not Delete/merge, [id number] 05/27/2024 12:53:53 Result Notes None recorded. Problems Name Problem SNOMED Code Status Onset Date Resolution Date Notes Provider Name and Address Organization Details Recorded Time Diabetes mellitus 65431205 Active 024 BARRIE Hammonds, [facility] 09:39:21 Problem Notes None recorded. Procedures Surgical History Date Name Laterality Status Provider Name and Address Organization Details Recorded Time Heart Surgery completed Kenya Rodas MA [facility] 04/29/2024 09:45:29 excision of salivary gland completed Kenya Rodas MA [facility] 04/29/2024 09:46:20 Imaging Results None recorded. Procedure Notes None recorded. Medical Equipment None Reported. Allergies Allergen ID Allergen Name Allergen Category Reaction Reaction Severity Criticality Documentation Date Start Date Code Code System Note Provider Name and Address Organization Details Recorded Time [id number] 12430 prednison e medicatio n hives moderate Not available 04/29/2024 8640 RxNorm Not Available Not Available Not Available [place] [address] [id number] 75330 Product containin g penicilli n and antibioti c (product) medicatio n hives moderate Not available 04/29/2024 28150 05 SNOMED Not Available Not Available Not Available [place] [address] [id number] 40021 Substance with sulfonami de structure and antibacte rial mechanism of action (substanc e) medicatio n hives Not available Not available 04/29/2024 85263 8003 SNOMED Not Available Not Available Not Available [place] [address] [id number] 42919 Nubain medicatio n hives moderate Not available 04/29/2024 7550 RxNorm Not Available Not Available Not Available [id number] 51384 metformin medicatio n hives Not available Not available 04/29/2024 6809 RxNorm Not Available Not Available Not Available [id number] 48530 hydrocodo ne Not available hives severe Not available 04/29/2024 5489 RxNorm Not Available Not Available Not Available Medications Name Sig Start Date Stop Date Status Note LastModified by Organization Details LastModified Time Prescriptio n - Change active Not Available Not Available N ot Available furosemide 40 mg tablet TAKE 1 TABLET BY MOUTH ONCE DAILY 04/29 completed Not Available Not Available Not Available atorvastati n 80 mg tablet TAKE 1 TABLET BY MOUTH ONCE DAILY active Not Available Not Available No t Available prednisone 10 mg tablet active Not Available Not Available Not Available metoprolol tartrate 100 mg tablet Take 1 tablet twice a day by oral route. active Not Available Not Available No t Available albuterol sulfate 1.25 mg/3 mL solution for nebulizatio n USE 1 VIAL IN NEBULIZER EVERY 6 HOURS NEEDED FOR SHORTNESS OF BREATH active Not Available Not Available No t Available isosorbide mononitrate ER 30 mg tablet,exte nded release 24 hr TAKE 1 TABLET BY MOUTH ONCE DAILY active Not Available Not Available No t Available ropinirole 3 mg tablet TAKE 1 TABLET BY MOUTH THREE TIMES DAILY 04/29 completed Not Available Not Available Not Available ciprofloxac in 250 mg tablet 04/29 completed Not Available Not Available Not Available ciprofloxac in 500 mg tablet TAKE 1 TABLET BY MOUTH ONCE DAILY 04/29 completed Not Available Not Available Not Available cephalexin 500 mg capsule 04/29 completed Not Available Not Available Not Available dexamethaso ne 4 mg tablet 04/29 completed Not Available Not Available Not Available lisinopril 5 mg tablet active Not Available Not Available Not Available furosemide 20 mg tablet TAKE 1 TABLET BY MOUTH ONCE DAILY active Not Available Not Available No t Available albuterol sulfate HFA 90 mcg/actuati on aerosol inhaler INHALE 1 TO 2 PUFFS BY MOUTH EVERY 4 HOURS NEEDED active Not Available Not Available No t Available Asprin Ec Low Dose 81 mg tablet,steffen yed release Take 1 tablet every day by oral route. active Not Available Not Available No t Available ezetimibe 10 mg tablet active Not Available Not Available Not Available Novolog FlexPen U-100 Insulin aspart 100 unit/mL (3 mL) subcutaneou s use for omnipod 2024 active Not Available Not Available Not Avai lable nitrofurant oin monohydrate /macrocryst als 100 mg capsule TAKE 1 CAPSULE BY MOUTH TWICE DAILY active Not Available Not Available No t Available Lantus Solostar U-100 Insulin 100 unit/mL (3 mL) subcutaneou s pen INJECT 40 UNITS SUBCUTANE OUSLY TWICE DAILY active Not Available Not Available No t Available Xarelto 10 mg tablet TAKE 1 TABLET BY MOUTH ONCE DAILY IN THE EVENING active Not Available Not Available No t Available Xarelto 20 mg tablet Take 1 tablet every day by oral route. active Not Available Not Available No t Available potassium chloride ER 20 mEq tablet,exte nded release TAKE 1 TABLET BY MOUTH ONCE DAILY active Not Available Not Available No t Available Otezla 30 mg tablet TAKE 1 TABLET BY MOUTH TWICE DAILY active Not Available Not Available No t Available Jardiance 25 mg tablet TAKE 1 TABLET BY MOUTH ONCE DAILY 04/29 completed Not Available Not Available Not Available Trintellix 20 mg tablet TAKE 1 TABLET BY MOUTH ONCE DAILY active Not Available Not Available No t Available FreeStyle Naz 2 Sensor kit USE DIRECTED 4 TIMES DAILY active Not Available Not Available No t Available Vitals Date Recorded Body weight Provider Name an d Address Organization Details Last Updated DateTime 04/29/2024 92682.51 g Kenya Rodas MA [facility] 04/29/2024 09:33:19 Date Recorded Body mass index (BMI) Body height Provider Name and Address Organization Details Last Updated DateTime 04/29/2024 36.8 kg/m2 154.94 cm Kenya Rodas MA [facility] 09:35:23 Date Recorded Oxygen saturation Oxygen saturation in Arterial blood by Pulse oximetry Provider Name and Address Organization Details Last Updated DateTime 04/29/2024 96 % 96 % Kenya Rodas MA [facility] 04/29/2024 09:53:04 Date Recorded Heart rate Provider Name an d Address Organization Details Last Updated DateTime 04/29/2024 84 /min Kenya Rodas MA [facility] 04/29/2024 09:53:07 Date Recorded Body temperature Provider Name a nd Address Organization Details Last Updated DateTime 04/29/2024 97.4 [degF] Kenya Rodas MA [facility] 09:53:09 Date Recorded Body height Provider Name an d Address Organization Details Last Updated DateTime 05/15/2024 154.94 cm Junior Haile MA [facility] 2023 14:26:37 Date Recorded Body temperature Provider Name a nd Address Organization Details Last Updated DateTime 05/15/2024 97.8 [degF] Junior Haile MA [facility] 05/15/2024 14:27:41 Date Recorded Pain severity - 0-10 verbal numeric rating [Score] - Reported Provider Name and Address Organization Details Last Updated DateTime 05/15/2024 0 Junior Haile MA [facility] 05/15/2024 14:27:50 Date Recorded Body mass index (BMI) Body weight Provider Name and Address Organization Details Last Updated DateTime 05/15/2024 37 kg/m2 21588.39 g Junior Haile MA [facility] 05/15/2024 14:27:54 Date Recorded Heart rate Provider Name an d Address Organization Details Last Updated DateTime 05/15/2024 66 /min Junior Haile MA [facility] 2023 14:30:32 Date Recorded Systolic blood pressure Diastolic blood pressure Provider Name and Address Organization Details Last Updated DateTime 04/29/2024 122 mm[Hg] 80 mm[Hg] Kenya Rodas MA [facility] 04/29/2024 09:53:00 Date Recorded Systolic blood pressure Diastolic blood pressure Provider Name and Address Organization Details Last Updated DateTime 05/15/2024 142 mm[Hg] 66 mm[Hg] Junior Haile MA [facility] 05/15/2024 14:30:43 Social History Question Answer Notes LastModified by Organizat ion Details LastModified Time Tobacco Smoking Status Former Smoker Kenya Rodas MA null, [facility] 04/29/2024 09:43:49 What Is Your Level Of Alcohol Consumption? Occasional Information not available 04/29/2024 What Is Your Level Of Caffeine Consumption? Occasional Information not available 04/29/2024 What Was The Date Of Your Most Recent Tobacco Screening? 05/15/2024 [email or web address] Information not available 05/15/2024 Do You Use Any Illicit Or Recreational Drugs? No Information not available 04/29/2024 Has Tobacco Cessation Counseling Been Provided? No Information not available 04/29/2024 Sex: Unknown Functional Status None recorded. Mental Status None recorded. Family History Relationship Description Onset Age of this Age Resolved Age Notes LastModified by Organization Details LastModified Time Sister Diabetes mellitus [email or web address] Not available 2023 09:47:05 Sister Heart disease [email or web address] Not available 2023 09:47:39 Sister Hypertensive disorder [email or web address] Not available 2023 09:48:01 Sister Hypercholest erolemia [email or web address] Not available 2023 09:48:23 Father Heart disease [email or web address] Not available 2023 09:47:39 Father Hypertensive disorder [email or web address] Not available 2023 09:48:01 Father Hypercholest erolemia [email or web address] Not available 2023 09:48:23 Mother Heart disease [email or web address] Not available 2023 09:47:39 Mother Hypertensive disorder [email or web address] Not available 2023 09:48:01 Mother Hypercholest erolemia [email or web address] Not available 2023 09:48:23 Brother Heart disease [email or web address] Not available 2023 09:47:39 Brother Hypertensive disorder [email or web address] Not available 2023 09:48:01 Brother Hypercholest erolemia [email or web address] Not available 2023 09:48:23 Medical History Condition Response Coronary Artery Disease Y Other N High Blood Pressure Y Atrial Fibrillation Y Thyroid Problems N Kidney or Bladder Problems Y GI Problems N Depression Y COPD Y Blood Clots Y Have you had a mammogram in the last yea r? Y Skin Problems Y Eating Disorder N Anemia N Heart Attack (MT) Y Diabetes Y Anxiety Disorder Y Muscle, Joint, or Bone Problems Y Seizures/Epilepsy N Have you had a colonoscopy in the last 1 0 years? Y Arthritis Y Acid Reflux (GERD) N Cancer N Stroke N Asthma N Allergies Y Have you had a PSA blood test in the las t year? N ADHD N Substance Abuse N High Cholesterol Y Hepatitis N Liver Disease N Schizophrenia N Headaches N Osteoporosis N Heart Failure N Gynecological HistoryNo gynecological history recorded. Obstetrics History GPAL:G 0 P 0 0 0 0 Past Encounters Encounter ID Performer Location Encounter Start Date Encounter Closed Date Diagnosis/Indication Diagnosis SNOMED-CT Code Diagnosis ICD10 Code Diagnosis Note [id number] MD Syl Antonio (Adult Med) [address] [place] [address] 04/29/2024 09:22:59 05/01/2024 09:32:19 Screening for osteoporosis 171393080 Z13.820 Due for screening DEXA. Absent pulse 21971461 R0 9.89 Difficulty getting right pedal pulse on exam, but able to get posterior tibial. Will check doppler study. Type 2 anton betes mellitus 74244140 E11.9 Diabetes has been fairly well controlled . Would like to see Hgb A1C down to seven or a little less. Will check a Hemoglobin A1C. Will also put in an Ophthalmol ogy referral since in May it will be a year. Encouraged her to check her feet daily. Believes had blood work done in November or December. Will get records. Rupture of rotator cuff of right shoulder 3900021727 9584609 M75.101 Will refer to orthopedic surgeon to discuss treatment options and possibly to get an injection again. Dyspnea 189825273 R06.00 Will get records from recent hospitaliz ation. It sounds like this was due to CHF. I will confirm this and get more informatio n on her heart disease. Cardiac arrhythmia 32523 7007 I49.9 Patient was recently hospitaliz ed and she states she had atrial fibrillati on. She is in sinus rhythm at this time. I will get her hospital records to review. Coronary arteriosclerosis 41499757 I25.10 Has had bypass surgery and has a pacemaker. Seeing cardiologi st Dr. Hernandez. Screening for malignant neoplasm of colon 172976558 Z12.11 Believes she was told she needs colonoscop y every five years but not sure why. It has been over five years now. She was given Cologuard by previous provider which she has not done. Will get records and review. Psoriasis 4686277 L40.9 Well controlled with Otezla. 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 [id number] Nadege Miller MD [facility] [address] [place] [address] 05/15/2024 14:03:43 05/16/2024 07:34:24 Type 2 diabetes mellitus without complication 151773388 E11.9 Nuclear sc lerotic cataract 692059005 H25.13 [id number] MD Syl Antonio (Adult Med) [address] [place] [address] 05/27/2024 14:50:50 06/10/2024 16:34:57 Urinary symptoms 996742461 R39.9 Health Concerns Section Related Observation LastModified by Organization Detai ls LastModified Time None Recorded Concern Status LastModified by Organization Details LastModified Time None Recorded Advance Directives Directive None Recorded Payers Encounter Date Sequence Insurance Name Policy Number Policy Shah Covered Member ID Shah Member ID Guarantor Name 04/29/2024 1 [facility] (MEDICARE REPLACEMENT/A DVANTAGE - HMO) [id number] Donna Romo [id number] Donna Romo 05/15/2024 1 [facility] (MEDICARE REPLACEMENT/A DVANTAGE - HMO) [id number] Donna Romo [id number] Donna Romo 05/27/2024 1 [facility] (MEDICARE REPLACEMENT/A DVANTAGE - HMO) [id number] Donna Romo [id number] Donna [place] Notes Date Note Type Note Provider Name and Address Organization Details Recorded Time 04/29/2024 text/html here to maria isabel russell, 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 [employer], high cholesterol is controlled, a couple weeks ago was in hospital because couldn't breathe, diagnosed with CHF, started Lasix and Potassium, was in atrial fib and occasional v fib, was in [place], has COPD, had blood work in November or December, non smoker, quit eleven years, thirty pack year history, no cancers in family, heart disease and blood pressure in family, had Cologuard last year and colonoscopy every five years and last one was seven years ago, just had mammogram a couple months ago, never had bone density, history fatty liver, full thickness rotator cuff tear on right, had cortisone shot last May which helped, has had several UTIs in the past Nayana Whitehead MD Attn: Accounting,[address] [place], [address], [facility] 04/30/2024 18:59:48 05/15/2024 text/html DM needs eye exa m, No new comp. Nadege Miller MD [address] [place], [address], [facility] 05/15/2024 15:28:32 OBGyn Episode No OBEpisode recorded.
--- OUTSIDE RECORDS SUMMARY | 2024-07-03 14:34 | XMS_ITS | Patient Health Summary ---
Author Organization [facility] Address [address] [place] [address] Care Team Providers Care Data Recovery Planner Name Role Phone Debbie Doran MD Primary Care Provider [phone] Debbie Perkins BEEF CATTLE FARMER-DIRECTOR OF SUPPLY CHAIN Unavailable [phone] Note from [facility],non-owned Affiliates and Associated Physician Practices is amultiple site organization consisting of ambulatory clinics and hospital sitesin [place], [place] and [place]. This disclosure is being madepursuant to the Care Everywhere program and may not contain all information available regarding this patient. Last updated 18.[facility] Allergies * Azithromycin(Rash) -Medium Criticality * Hydrocodone-Acetaminophen(Nausea and/or Vomiting) * Lortab(Nausea and/or Vomiting) * Metformin(Diarrhea,Nausea and/or Vomiting) * Nalbuphine(Rash) -Medium Criticality * Penicillins(Urticaria,Rash,Skin Reactions) -Medium Criticality * Prednisone(Urticaria,Rash,Skin Reactions) -Medium Criticality * Sulfa Antibiotics(Urticaria,Rash,Skin Reactions) -Medium Criticality * Sumatriptan(Itching) Medications * Be aware that medications may not be up to date on this document. Alwaysverify current medications with the patient. * albuterol (Accuneb) 1.25 MG/3ML nebulizer solution USE 1 VIAL IN NEBULIZER EVERY 6 HOURS NEEDED FOR SHORTNESS OF BREATH * Apremilast (Otezla) 30 MG Take 1 (one) tablet by mouth 2 times daily * aspirin EC (Ecotrin) 81 MG tablet Take 1 (one) tablet by mouth once daily * atorvastatin (Lipitor) 80 MG tablet(Started 10/30/2023) Take 1 (one) tablet by mouth once daily * Continuous Glucose Sensor (FreeStyle Naz 2 Sensor Systm) [facility] 12[place]12/[place] USE DIRECTED 4 TIMES DAILY * ezetimibe (Zetia) 10 MG tablet TAKE 1 TABLET BY MOUTH ONCE DAILY DIRECTED * BD Pen Needle Shauna 2nd Gen 32G X 4 MM [facility]Started 04/30/2023) USE 1 TO INJECT INSULIN SIX TIMES DAILY * isosorbide mononitrate CR 24hr (Imdur) 30 MG tablet Take 1 (one) tablet by mouth once daily * lisinopril (Prinivil; Zestril) 5 MG tablet(Started 01/04/2023) Take 1 (one) tablet by mouth once daily * LORazepam (Ativan) 0.5 MG tablet Take 1 (one) tablet by mouth 2 times daily as needed * metoprolol tartrate IR (Lopressor) 100 MG tablet(Started 05/08/2023) Take 1 (one) tablet by mouth 2 times daily * nitroGLYCERIN (Nitrostat) 0.4 MG tablet DISSOLVE ONE TABLET UNDER THE TONGUE EVERY 5 MINUTES NEEDED FOR CHEST PAIN. DO NOT EXCEED A TOTAL OF 3 DOSES IN 15 MINUTES * ondansetron, disintegrating, (Zofran ODT) 4 MG tablet DISSOLVE 1 TABLET IN MOUTH EVERY 6 HOURS NEEDED FOR NAUSEA * pregabalin (Lyrica) 75 MG capsule Take 1 (one) capsule by mouth 2 times daily * Xarelto 20 MG tablet Take 1 (one) tablet by mouth once daily * Trintellix 20 MG tablet(Started 02/23/2024) Take 1 (one) tablet by mouth once daily 1 refill by 02/22/2025 * blood glucose (FREESTYLE LITE STRIPS) test strip USE 1 STRIP TO CHECK GLUCOSE 4 TIMES DAILY * Continuous Glucose Electric Tool Repairer (FreeStyle Naz 2 Humble Systm) CANDI USE TO TEST BLOOD SUGAR 4 TIMES DAILY * FreeStyle Lancets [facility] USE DIRECTED 4 TIMES DAILY * Lantus SoloStar pen(Started 03/26/2024) Inject 10 (ten) Units subcutaneously every 24 hours Reasons: Type 2 Diabetes 1 refill by 03/26/2025 * albuterol HFA (Proventil; Ventolin; Proair) 108 (90 Base) MCG/ACT inhaler (Started 06/10/2024) INHALE 1 TO 2 PUFFS BY MOUTH EVERY 4 HOURS NEEDED Ended Medications* albuterol HFA (Proventil; Ventolin; Proair) 108 (90 Base) MCG/ACT inhaler(Started 02/23/2024)(Discontinued) INHALE 1 TO 2 PUFFS BY MOUTH EVERY 4 HOURS NEEDED Reasons: Chronic Obstructive Lung Disease Active Problems Problem Noted Date Diagnosed Date Other chronic pulmonary embo lism without acute cor pulmonale 03/26/2024 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 (AFLURIA, FLUZONE TRIVALENT; 6MO+) (IIV3)(Given 03/19/2014) * Covid Moderna primary monovalent 12+ yr 0.5mL(Given 08/19/2020) * FLU VACCINE QUAD IIV4 SPLIT 0.25 ML IM(Given 04/24/2015) * FLU VACCINE TRI IIV3 SPLIT PF IM (FLUVIRIN)(Given 05/31/2018) * HEP A VACCINE, ADULT(Given 11/15/2013) * HEP B VACCINE, ADULT 3 DOSE(Given 11/15/2013, 11/16/1991) * INFLUENZA VACCINE, QUADR. (FLUZONE; FLULAVAL; FLUARIX; AFLURIA QUADRIVALENT; 6MO+), 0.5 ML (IIV4)(Given 04/07/2020, 03/22/2019) * PNEUMOCOCCAL PPSV23(Given 12/09/2014) * Td (Adult), 2 Lf Tetanus Toxoid, Adsorbed, Pf(Given 02/06/1992) * Zoster Hzv Vacc Recombinant Inj Im(Given 03/22/2024, 01/06/2024) Social History Tobacco Use Types Packs/Day Years [...] Mass Index 36.96 03/26/2024 2:30 PM CDT Procedures * XR CLAVICLE RIGHT 1VW(Performed 02/23/2024) Performed for Injury of right shoulder, initial encounter * XR SHOULDER RIGHT 2VW OR MORE(Performed 02/23/2024) Performed for Injury of right shoulder, initial encounter * HEMOGLOBIN A1C - POINT OF CARE (AMB)(Performed 02/23/2024) Performed for Type 2 diabetes mellitus with diabetic polyneuropathy, with long- term current use of insulin ([facility]) * MICROALB/CREAT RATIO URINE RANDOM PANEL(Performed 02/23/2024) Performed for Type 2 diabetes mellitus with diabetic polyneuropathy, with long- term current use of insulin ([facility]) * CULTURE URINE(Performed 02/23/2024) Performed for Frequency of urination * URINALYSIS - POINT OF CARE(Performed 02/23/2024) Performed for Frequency of urination * MAMMO BILAT SCREENING [place](Performed 01/02/2024) Performed for Encounter for screening mammogram for malignant neoplasm of breast Results * XR Clavicle Right 1Vw (02/23/2024 2:21 PM CDT) Anatomical Region Laterality Modality Chest, Upper Extremity Computed Radiography 02/23/2024 2:40 PM CDT Impressions 02/23/2024 2:41 PM CDT IMPRESSION: Spurring and sclerotic changes at the level of the humeral tuberosity with suggested minimal degenerative subchondral cyst formation. Preservation of the right shoulder joint space width. Mild arthritic changes of the right acromioclavicular joint. > Interpreting Provider: Tr Lawler MD on 02/23/2024 2:41 PM EXAM: Right clavicle 2 views FINDINGS: AP and up angled AP axial views of the right clavicle were obtained and shows no evidence of recent or healing fracture. Mild arthritic spurring of the superior aspect of the distal right clavicle at the level right acromioclavicular joint. No evidence of bony destructive process. IMPRESSION: No evidence of fracture of the right clavicle. Distal right clavicular spurring. Narrative 02/23/2024 2:41 PM CDT PROCEDURE: ??XR CLAVICLE RIGHT 1VW DATE/TIME OF EXAM: ??02/23/2024 2:21 PM CLINICAL INFORMATION: None relevant/not provided if blank. Indication: S49.91XA: Unspecified injury of right shoulder and upper arm, initial encounter Additional History: COMPARISON: 2 view right clavicle study performed on the same date FINDINGS: AP internal and external rotation and transscapular views were obtained and shows no evidence of fracture, dislocation nor significant right shoulder joint space narrowing. Mild to moderate arthritic irregularity seen at the level of the humeral tuberosity. There also appears to be mild arthritic changes of the right acromioclavicular joint. The glenohumeral and acromiohumeral joint spaces appear relatively intact. Procedure Note Tr Lawler MD - 02/23/2024 PROCEDURE: XR CLAVICLE RIGHT 1VW DATE/TIME OF EXAM: 02/23/2024 2:21 PM CLINICAL INFORMATION: None relevant/not provided if blank. Indication: S49.91XA: Unspecified injury of right shoulder and upperarm, initial encounter Additional History: COMPARISON: 2 view right clavicle study performed on the same date FINDINGS: AP internal and external rotation and transscapular views were obtainedand shows no evidence of fracture, dislocation nor significant rightshoulder joint space narrowing. Mild to moderate arthritic irregularity seen atthe level of the humeral tuberosity. There also appears to be mild arthritic changes of the right acromioclavicular joint. The glenohumeral and acromiohumeral joint spaces appear relatively intact. IMPRESSION: Spurring and sclerotic changes at the level of the humeral tuberosity with suggested minimal degenerative subchondral cystformation. Preservation of the right shoulder joint space width. Mild arthritic changes of the right acromioclavicular joint. > Interpreting Provider: Tr Lawler MD on 02/23/2024 2:41 PM EXAM: Right clavicle 2 views FINDINGS: AP and up angled AP axial views of the right clavicle were obtained and shows no evidence of recent or healing fracture. Mild arthritic spurring of the superior aspect of the distal right clavicleat the level right acromioclavicular joint. No evidence of bony destructive process. IMPRESSION: No evidence of fracture of the right clavicle. Distal right clavicular spurring. Cristina Perkins BEEF CATTLE FARMER-DIRECTOR OF SUPPLY CHAIN DIAGNOSTIC PRATEEK GING ORDERABLES * XR Shoulder Right 2Vw or More (02/23/2024 2:21 PM CDT) Anatomical Region Laterality Modality Upper Extremity Computed Radiogr aphy 02/23/2024 2:37 PM CDT Impressions 02/23/2024 2:39 PM CDT IMPRESSION: Spurring and sclerotic changes at the level of the humeral tuberosity with suggested minimal degenerative subchondral cyst formation. Preservation of the right shoulder joint space width. Mild arthritic changes of the right acromioclavicular joint. > Interpreting Provider: Tr Lawler MD on 02/23/2024 2:39 PM Narrative 02/23/2024 2:39 PM CDT PROCEDURE: ??XR SHOULDER RIGHT 2VW OR MORE DATE/TIME OF EXAM: ??02/23/2024 2:21 PM CLINICAL INFORMATION: None relevant/not provided if blank. Indication: S49.91XA: Unspecified injury of right shoulder and upper arm, initial encounter Additional History: COMPARISON: 2 view right clavicle study performed on the same date FINDINGS: AP internal and external rotation and transscapular views were obtained and shows no evidence of fracture, dislocation nor significant right shoulder joint space narrowing. Mild to moderate arthritic irregularity seen at the level of the humeral tuberosity. There also appears to be mild arthritic changes of the right acromioclavicular joint. The glenohumeral and acromiohumeral joint spaces appear relatively intact. Procedure Note Tr Lawler MD - 02/23/2024 PROCEDURE: XR SHOULDER RIGHT 2VW OR MORE DATE/TIME OF EXAM: 02/23/2024 2:21 PM CLINICAL INFORMATION: None relevant/not provided if blank. Indication: S49.91XA: Unspecified injury of right shoulder and upperarm, initial encounter Additional History: COMPARISON: 2 view right clavicle study performed on the same date FINDINGS: AP internal and external rotation and transscapular views were obtainedand shows no evidence of fracture, dislocation nor significant rightshoulder joint space narrowing. Mild to moderate arthritic irregularity seen atthe level of the humeral tuberosity. There also appears to be mild arthritic changes of the right acromioclavicular joint. The glenohumeral and acromiohumeral joint spaces appear relatively intact. IMPRESSION: Spurring and sclerotic changes at the level of the humeral tuberosity with suggested minimal degenerative subchondral cystformation. Preservation of the right shoulder joint space width. Mild arthritic changes of the right acromioclavicular joint. > Interpreting Provider: Tr Lawler MD on 02/23/2024 2:39 PM Cristina Perkins APRN-DIRECTOR OF SUPPLY CHAIN DIAGNOSTIC PRATEEK GING ORDERABLES * HEMOGLOBIN A1C - POINT OF CARE (HgbA1C) (02/23/2024 1:33 PM CDT) Hemoglobin A1c POCT 7.6 % [facility] [place] Expiration Date [facility] [place] Lot # [id number] [facility] [place] QC Verified Yes Yes [facility] Blood BLOOD SPECIMEN / Unknown 02/23/2024 1:33 PM CDT Cristina Perkins BEEF CATTLE FARMER-DIRECTOR OF SUPPLY CHAIN LAB - POINT OF CARE ORDERABLES [facility] [address] [phone] * MICROALB/CREAT RATIO URINE RANDOM PANEL (02/23/2024 1:13 PM CDT) Creatinine Urine 95.3 Not Estab. mg/dL [facility] ACCOUNT BILL Microalbumin Urine 16.8 Not Estab. ug/mL [facility] ACCOUNT BILL Microalbumin/Crea tinine Ratio 18 0 - 29 mg/g creat [facility] ACCOUNT BILL Comment: ? Normal: ?0 - ??29 ? Moderately increased: 30 - 300 ? Severely increased: ? >300 Urine URINE SPECIMEN OBTAINED BY CLEAN CATCH PROCEDURE / Unknown 02/23/2024 1:13 PM CDT 02/26/2024 Comment:Urine Random Release Narrative [facility] ACCOUNT BILL - 02/27/2024 9:07 AM CDT Performed at: ??01 - [facility] [address] ??[id number] Needle Valve Operator: Catracho Bowen PhD, Phone: ??[phone] Cristina Perkins BEEF CATTLE FARMER-DIRECTOR OF SUPPLY CHAIN LAB - URINE CH EMISTRY ORDERABLES Performing Organization Address City/State/[facility] Co de Phone Number [facility] ACCOUNT BILL [address] [place] [address] * (ABNORMAL) CULTURE URINE (02/23/2024 1:13 PM CDT) Urine Culture Routine Final report(A) [facility] ACCOUNT BILL Comment: Performed at: ??01 - [facility] [address] ??[id number] Needle Valve Operator: Catracho Bowen PhD, Phone: ??[phone] Result 1 Klebsiella aerogenes(A) [facility] ACCOUNT BILL Comment:Greater than 100,000 colony forming units per mL Antimicrobial Susceptibility Comment [facility] ACCOUNT BILL Comment: ? S = Susceptible; I = Intermediate; R = Resistant ? P = Positive; N = Negative ?MICS are expressed in micrograms per mL ?? Antibiotic ? RSLT#1 ?RSLT#2 ?RSLT#3 ?RSLT#4 Amoxicillin/Clavulanic Acid ?R Cefazolin ?R Cefepime ? S Ceftriaxone ?S Cefuroxime ? S Ciprofloxacin ?S Ertapenem ?S Gentamicin ? S Imipenem ? I Levofloxacin ? S Nitrofurantoin ? I Tetracycline ? S Tobramycin ? S Trimethoprim/Sulfa ? S Urine URINE SPECIMEN OBTAINED BY CLEAN CATCH PROCEDURE / Unknown 02/23/2024 1:13 PM CDT 02/26/2024 Comment:Urine - clean catch R Narrative [facility] ACCOUNT BILL - 02/29/2024 4:08 PM CDT Performed at: ??01 - [facility] [place] [address] [place], [place] ??[id number] Needle Valve Operator: Catracho Bowen PhD, Phone: ??[phone] Cristina Perkins APRN-[facility] - MICROBIO LOGY ORDERABLES [facility] ACCOUNT [place] [address] * URINALYSIS - POINT OF CARE (02/23/2024 12:44 PM CDT) Clarity UA POCT CLOUDY [facility] [place] Color UA POCT YELLOW [facility] [place] Leukocyte UA 1+ Negative [facility] [place] Nitrite UA POCT POSITIVE Negative [facility] [place] Urobilinogen UA 0.2 0.1 - 1.0 [facility] [place] Protein UA POCT NEGATIVE Negative [facility] [place] pH UA 5.5 5.0 - 8.0 pH units [facility] [place] Blood UA NEGATIVE Negative [facility] [place] Specific [place] UA POCT 1.015 1.002 - 1.030 [facility] [place] Ketone UA NEGATIVE Negative [facility] [place] Bilirubin UA POCT NEGATIVE Negative [facility] [place] Glucose UA NEGATIVE Negative [facility] [place] Urine URINE / Unknown 02/23/2024 1 2:44 PM CDT Cristina Perkins BEEF CATTLE FARMER-DIRECTOR OF SUPPLY CHAIN LAB - POINT OF CARE ORDERABLES [facility] [place] [address] [phone] * Mammo Bilat Screening [place] (01/02/2024 3:10 PM CDT) Anatomical Region Laterality [...] either breast. Debbie Doran MD MAMMO ORDERABLES Care Teams Data Recovery Planner Relationship Specialty Start Date End Date Debbie Doran MD [address] [place] [address] PCP - General Family Medicine 02/23/24 Debbie Perkins, BEEF CATTLE FARMER-DIRECTOR OF SUPPLY CHAIN [address] [place] [address] PCP - [facility]ly [facility] 03/05/24
--- OUTSIDE RECORDS SUMMARY | 2024-07-03 14:35 | XMS_ITS | Data Portability ---
Author Organization [place] ANGIE [email or web address] SisterAsst Address [facility] [place] [address] Care Team Providers Care Floor Coverer Name Role Phone BONG GRACIA Nurse Practitioner Sandi ESPINAL Sap Data Analyst [phone] STEPHANIE SIDDIQI Chart Clerk EMA WRIGHT Primary Care Provider Assessment Encounter Date Assessment Date Assessment LastModified by Organization Details LastModified Time 02/16/2023 02/16/2023 Type 2 diabetes controlled but unstable. Hemoglobin A1c 6.7% on 01/03/2023. At this point in time we are going to do the followin. Adjust Levemir to 40 units subcu BID 2. Adjust Lispro insulin to 30 / 30 / 20 units subcu AC TID with meals 3. Continue Lispro insulin aggressive sliding scale QID ACHS 4. Continue Jardiance 25 mg p.o. daily. 5. Intolerance to metformin 6. Monitor blood glucose 4 times a day via Edmodostyle Naz 2 CGM, bring device to visits 7. Advised healthy diet and exercise --advised to call office if having hypoglycemia, further adjustments can be made Hypertension, controlled. Antihypertensives reviewed, continue the same. Serum creatinine normal at 0.62, GFR 99 Urine for microalbumin normal - recheck. On RODY in the form of lisinopril. Dyslipidemia, controlled. LDL 42 - recheck. On atorvastatin daily 80 mg and Zetia 10 mg p.o. once daily. Also on Repatha 140 mg SQ every 2 weeks. CAD, present - advising global risk reduction in the form of controlled diabetes, hypertension, and dyslipidemia. Goal LDL <70. Watch diet and exercise. Aspirin 81 mg and Xarelto daily Former smoker Diabetic neuropathy, present. Feet examined and showed no ulcers or sores. Feet are dry and calluses present. Advised daily foot care. Eye exam 10/25/2022 shows no retinopathy. Advise yearly dilated eye exams. Thyroid function profile normal - recheck Lab work is being ordered Advised to call office with any questions or concerns Return to clinic in 3 months ruby Not available 02/20/2023 18:21:12 02/17/2023 02/17/2023 IMPRESSION: 1. Stable coronary artery disease. Known left main disease, status post 2-vessel CABG, MULLEN to the LAD and vein graft to the OM in 2018. Low-risk heart cath in 2018. Recent stress test in January 2023 shows no ischemia. Continues to remain symptom free at this time without any use of any nitroglycerin. We will continue her current cardiac medications. 2. History of AFib. Maintaining sinus rhythm. ECG during her stress test I think was reported as being in sinus. We will continue to follow up with the EP service. 3. Status post pacemaker insertion. Generator change in 2020. EP followup as scheduled. 4. Cardiomyopathy, well compensated. Last EF reported was 45-50%, during her stress test. EF went back up to 69%. The patient is on guideline-directed medicine. Appropriately on lisinopril and metoprolol and Repatha. She had been on Jardiance, but now it is off her list. Overall, cardiac status is otherwise stable. We will plan to see her back for a follow-up as scheduled early in August 10. Not available 02/17/2023 12:29:00 06/20/2023 06/20/2023 Type 2 diabetes controlled but unstable. Hemoglobin A1c 7.0% . At this point in time we are going to do the followin. - Levemir to 40 units subcu BID 2. Adjust Lispro insulin to 30 / 30 / 20 units subcu AC TID with meals 3. Continue Lispro insulin aggressive sliding scale QID ACHS 4. Continue Jardiance 25 mg p.o. daily. 5. Intolerance to metformin 6. Monitor blood glucose 4 times a day via CloudAmbo 2 CGM, bring device to visits 7. Advised healthy diet and exercise --advised to call office if having hypoglycemia, further adjustments can be made Hypertension, controlled. Antihypertensives reviewed, continue the same. we managing Serum creatinine normal at 0.62, GFR 99 Urine for microalbumin normal - recheck. On RODY in the form of lisinopril. Dyslipidemia, controlled. LDL 42 - recheck. On atorvastatin daily 80 mg and Zetia 10 mg p.o. once daily. Also on Repatha 140 mg SQ every 2 weeks. CAD, present - advising global risk reduction in the form of controlled diabetes, hypertension, and dyslipidemia. Goal LDL <70. Watch diet and exercise. Aspirin 81 mg and Xarelto daily Former smoker Diabetic neuropathy, present. Feet examined and showed no ulcers or sores. Feet are dry and calluses present. Advised daily foot care. Eye exam 10/25/2022 shows no retinopathy. Advise yearly dilated eye exams. Thyroid function profile normal - recheck Lab work is being ordered Advised to call office with any questions or concerns Return to clinic in 3 months Not available 06/20/2023 16:29:55 09/19/2023 09/19/2023 IMPRESSION: 1. Stable coronary artery disease. Known left main disease, status post 2-vessel CABG, MULLEN to the LAD and vein graft to the OM in 2018. Low risk stress test. Repeat catheterization in 2018. Her stress test in January of 2023 showed no ischemia. Continued to remain on high-intensity statin, as well as her aspirin. 2. History of AFib, maintaining sinus rhythm. Her last stress test 01/2023 shows no ischemia. She has been able to maintain sinus. Continue to follow up with EP. 3. Status post pacemaker insertion. Generator change completed in 2020. EP followup again. 4. Cardiomyopathy, mild LV dysfunction. EF remained unchanged on this recent echocardiogram. The patient is on guideline-directed meds including lisinopril, metoprolol and had been on Jardiance in the past, though I think it was cost prohibitive for her. 5. Obesity with successful weight loss from 216 to 195. She is participating in a research protocol with [employer]. Overall, cardiac status is stable. We will schedule her to see us back again in one year if she is back in the area. Otherwise, she will just get established with a precision lens polisher in the [place] area. Not available 09/19/2023 16:52:15 Plan of Treatment Reminders Order Date Submit Date Provider Last Modified By Organization Details Last Modified Time Details Appointments None recorded. Lab LDL, direct, serum 2022 023 [facility], [address] [place], [address], 3 11:21:04 AST/SGOT (aspartate aminotransf erase), serum or plasma 2022 023 [facility], [address] [place] [address], [address], 4 08:11:48 hemoglobin A1C, fingerstick 2022 023 [email or web address] - For Internal Use Only - [place], [address] [place] [address], [address], 3 11:20:56 microalbumi n/creatinin e, mass ratio, urine 2022 023 [facility], [address] [place] [address], [address], 4 06:48:47 creatinine w/ estimated GFR (eGFR), serum or plasma 2022 023 [facility], [address] [place] [address], [address], 4 08:11:38 TSH, serum or plasma 2022 023 [facility], [address] [place] [address], [address], 4 08:11:30 unlisted lab - Sv free T4 2022 023 [facility], [address] [place] [address], [address], 4 06:48:47 LDL, direct, serum 2023 024 [facility], [address] [place], [address], 4 16:30:35 AST/SGOT (aspartate aminotransf erase), serum or plasma 2023 024 [email or web address] 1 [facility], [address] [place] [address], [address], 4 15:37:41 hemoglobin A1C, fingerstick 2023 [facility]- In-Office Orders - For Internal Use Only - [place], [address] [place] [address], [address], 4 16:53:43 microalbumi n/creatinin e, mass ratio, urine 2023 024 [email or web address] 1 [facility], [address] [place] [address], [address], 4 15:37:40 creatinine w/ estimated GFR (eGFR), serum or plasma 2023 024 [email or web address] 1 [facility], [address] [place] [address], [address], 4 15:37:40 TSH, serum or plasma 2023 024 [email or web address] 1 [facility], [address] [place], [address], 4 15:37:40 unlisted lab - Sv free T4 2023 024 [email or web address] 1 [facility], [address] [place], [address], 4 15:37:40 Referral None recorded. Procedures None recorded. Surgeries None recorded. Imaging US, echocardiog khushi, transthorac ic, complete, w/ color flow 2022 023 [facility], [address] [facility], [place], [address], 4 10:00:37 electrocard iogram 2023 024 [facility]- In-Office Orders - For Internal Use Only - [place], [address] [facility], [place], [address], 4 14:08:01 Medication Orders Levemir FlexPen 100 unit/mL (3 mL) solution subcutaneou s insulin pen 2022 023 [facility] [place], [address], 4 15:51:15 insulin lispro (U-100) 100 unit/mL subcutaneou s pen 2022 023 [facility], [address] [place], [address], 3 18:15:25 Patient TargetsNo targets recorded. Patient Instructions Encounter Date Encounter Id Patient Instructions Last Modified By Organization Details Last Modified Time 02/16/2023 [id number] A healthy lifestyle: care instructions Not available 02/16/2023 11:20:56 diabetic neuropathy: care instructions Not available 02/16/2023 11:20:56 heart-healthy diet: care instructions Not available 02/16/2023 11:20:56 type 2 diabetes: care instructions Not available 02/16/2023 11:20:56 02/17/2023 [id number] high blood pressure: care instructions pcasino Not available 02/17/2023 11:40:43 learning about high blood pressure pcasino Not available 02/17/2023 11:40:43 06/20/2023 [id number] A healthy lifestyle: care instructions Not available 06/20/2023 16:30:20 diabetic neuropathy: care instructions Not available 06/20/2023 16:30:20 heart-healthy diet: care instructions Not available 06/20/2023 16:30:19 type 2 diabetes: care instructions Not available 06/20/2023 16:30:19 08/01/2023 [id number] atrial fibrillation: care instructions Not available 08/01/2023 16:37:56 premature heartbeat: care instructions Not available 08/01/2023 16:37:56 09/19/2023 [id number] high blood pressure: care instructions pcasino Not available 09/20/2023 12:24:23 learning about high blood pressure pcasino Not available 09/20/2023 12:24:23 Reason for Referral None Reported. Results Created Date Observation Date Name Description Value Unit Range Abnormal Flag Note LastModifiedBy Organization Detail LastModifiedTime 02/17/2002/16/2023 hemog lobin A1C, finge rstic k Hemoglobin A1C 6.7 Not Available [facility]- In-Office Orders - For Internal Use Only - [address], [address], 02/16/2023 11:06:18 06/20/19 24 06/20/2023 hemog lobin A1C, finge rstic k Hemoglobin A1C 7 Not Available [facility]- In-Office Orders - For Internal Use Only - [address], [address], 06/20/2023 15:46:01 10/17/19 24 10/18/2023 CBC WITH DIFFE RENTI AL/PL ATELE T WBC 7.4 x10e3 /uL 3.4-10 .8 Not Available [facility] ([facility]) [address] [facility], [place], [address], 10/18/2023 15:10:58 10/17/19 24 10/18/2023 CBC WITH DIFFE RENTI AL/PL ATELE T RBC 4.78 x10e6 /uL 3.77-5 .28 Not Available [facility] ([facility]) [address] [facility], [place], [address], 10/18/2023 15:10:58 10/17/19 24 10/18/2023 CBC WITH DIFFE RENTI AL/PL ATELE T hemoglobin 13.8 g/dL 11.1-1 5.9 Not Available [facility] ([facility]) [address] [facility], [place], [address], 10/18/2023 15:10:58 10/17/19 24 10/18/2023 CBC WITH DIFFE RENTI AL/PL ATELE T hematocrit 41.6 % 34.0-4 6.6 Not Available [facility] ([facility]) [address] [facility], [place], [address], 10/18/2023 15:10:58 10/17/19 24 10/18/2023 CBC WITH DIFFE RENTI AL/PL ATELE T MCV 87 fL 79-97 Not Available [facility] ([facility]) [address] [facility], [place], [address], 10/18/2023 15:10:58 10/17/19 24 10/18/2023 CBC WITH DIFFE RENTI AL/PL ATELE T MCH 28.9 pg 26.6-3 3.0 Not Available [facility] ([facility]) [address] [facility], [place], [address], 10/18/2023 15:10:58 10/17/19 24 10/18/2023 CBC WITH DIFFE RENTI AL/PL ATELE T MCHC 33.2 g/dL 31.5-3 5.7 Not Available [facility] ([facility]) [address] [place], [address], 10/18/2023 15:10:58 10/17/19 24 10/18/2023 CBC WITH DIFFE RENTI AL/PL ATELE T RDW 12.8 % 11.7-1 5.4 Not Available [facility] ([facility]) [address] [facility], [place], [address], 10/18/2023 15:10:58 10/17/19 24 10/18/2023 CBC WITH DIFFE RENTI AL/PL ATELE T platelets 234 x10e3 /uL 150-45 0 Not Available [facility] ([facility]) [address] [facility], [place], [address], 10/18/2023 15:10:58 10/17/19 24 10/18/2023 CBC WITH DIFFE RENTI AL/PL ATELE T neutrophils 69 % not estab. Not Available [facility] ([facility]) [address] [facility], [place], [address], 10/18/2023 15:10:58 10/17/19 24 10/18/2023 CBC WITH DIFFE RENTI AL/PL ATELE T lymphs 25 % not estab. Not Available [facility] ([facility]) [address] [facility], [place], [address], 10/18/2023 15:10:58 10/17/19 24 10/18/2023 CBC WITH DIFFE RENTI AL/PL ATELE T monocytes 5 % not estab. Not Available [facility] ([facility]) [address] [facility], [place], [address], 10/18/2023 15:10:58 10/17/19 24 10/18/2023 CBC WITH DIFFE RENTI AL/PL ATELE T eos 0 % not estab. Not Available [facility] ([facility]) [address] [facility], [place], [address], 10/18/2023 15:10:58 10/17/19 24 10/18/2023 CBC WITH DIFFE RENTI AL/PL ATELE T basos 1 % not estab. 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 0 Not Available [facility] ([facility]) [address] [place], [address], 10/18/2023 15:10:58 10/17/19 24 10/18/2023 CBC WITH DIFFE RENTI AL/PL ATELE T lymphs (absolute) 1.8 x10e3 /uL 0.7-3. 1 Not Available [facility] ([facility]) [address] [place], [address], 10/18/2023 15:10:58 10/17/19 24 10/18/2023 CBC WITH DIFFE RENTI AL/PL ATELE T monocytes(ab solute) 0.4 x10e3 /uL 0.1-0. 9 Not Available [facility] ([facility]) [address] [place], [address], 10/18/2023 15:10:58 10/17/19 24 10/18/2023 CBC WITH DIFFE RENTI AL/PL ATELE T eos (absolute) 0.0 x10e3 /uL 0.0-0. 4 Not Available [facility] ([facility]) [address] [place], [address], 10/18/2023 15:10:58 10/17/19 24 10/18/2023 CBC WITH DIFFE RENTI AL/PL ATELE T baso (absolute) 0.0 x10e3 /uL 0.0-0. 2 Not Available [facility] ([facility]) [address] [place], [address], 10/18/2023 15:10:58 10/17/19 24 10/18/2023 CBC WITH DIFFE RENTI AL/PL ATELE T immature granulocytes 0 % not estab. Not Available [facility] ([facility]) [address] [facility], [place], [address], 10/18/2023 15:10:58 10/17/19 24 10/18/2023 CBC WITH DIFFE RENTI AL/PL ATELE T immature grans (abs) 0.0 x10e3 /uL 0.0-0. 1 Not Available [facility] ([facility]) [address] [facility], [place], [address], 10/18/2023 15:10:58 10/17/19 24 10/18/2023 CBC WITH DIFFE RENTI AL/PL ATELE T NRBC HEAD TURNING MACHINE OPERATOR Not Available [facility] ([facility]) [address] [facility], [place], [address], 10/18/2023 15:10:58 10/17/19 24 10/18/2023 CBC WITH DIFFE RENTI AL/PL ATELE T hematology comments: HEAD TURNING MACHINE OPERATOR Not Available [facility] ([facility]) [address] [facility], [place], [address], 10/18/2023 15:10:58 10/17/19 24 10/18/2023 COMP. METAB OLIC PANEL (14) glucose 128 mg/dL 70-99 above high normal Not Available [facility] ([facility]) [address] [facility], [place], [address], 10/18/2023 15:11:03 10/17/19 24 10/18/2023 COMP. METAB OLIC PANEL (14) BUN 16 mg/dL 8-27 Not Available [facility] ([facility]) [address] [facility], [place], [address], 10/18/2023 15:11:03 10/17/19 24 10/18/2023 COMP. METAB OLIC PANEL (14) creatinine 0.67 mg/dL 0.57-1 .00 Not Available [facility] ([facility]) [address] [place], [address], 10/18/2023 15:11:03 10/17/19 24 10/18/2023 COMP. METAB OLIC PANEL (14) eGFR 96 mL/mi n/1.7 3 >59 Not Available [facility] ([facility]) [address] [facility], [place], [address], 10/18/2023 15:11:03 10/17/19 24 10/18/2023 COMP. METAB OLIC PANEL (14) BUN/creatini ne ratio 24 12-28 Not Available [facility] ([facility]) [address] [facility], [place], [address], 10/18/2023 15:11:03 10/17/19 24 10/18/2023 COMP. METAB OLIC PANEL (14) sodium 144 mmol/ L 134-14 4 Not Available [facility] ([facility]) [address] [place], [address], 10/18/2023 15:11:03 10/17/19 24 10/18/2023 COMP. METAB OLIC PANEL (14) potassium 4.4 mmol/ L 3.5-5. 2 Not Available [facility] ([facility]) [address] [place], [address], 10/18/2023 15:11:03 10/17/19 24 10/18/2023 COMP. METAB OLIC PANEL (14) chloride 104 mmol/ L 96-106 Not Available [facility] ([facility]) [address] [place], [address], 10/18/2023 15:11:03 10/17/19 24 10/18/2023 COMP. METAB OLIC PANEL (14) carbon dioxide, total 26 mmol/ L 20-29 Not Available [facility] ([facility]) [address] [place], [address], 10/18/2023 15:11:03 10/17/19 24 10/18/2023 COMP. METAB OLIC PANEL (14) calcium 9.6 mg/dL 8.7-10 .3 Not Available [facility] ([facility]) [address], [place], [address], 10/18/2023 15:11:03 10/17/19 24 10/18/2023 COMP. METAB OLIC PANEL (14) protein, total 6.3 g/dL 6.0-8. 5 Not Available [facility] ([facility]) [address] [place], [address], 10/18/2023 15:11:03 10/17/19 24 10/18/2023 COMP. METAB OLIC PANEL (14) albumin 4.3 g/dL 3.9-4. 9 Not Available [facility] ([facility]) [address] [place], [address], 10/18/2023 15:11:03 10/17/19 24 10/18/2023 COMP. METAB OLIC PANEL (14) globulin, total 2.0 g/dL 1.5-4. 5 Not Available [facility] ([facility]) [address] [place], [address], 10/18/2023 15:11:03 10/17/19 24 10/18/2023 COMP. METAB OLIC PANEL (14) A/G ratio 2.2 1.2-2. 2 Not Available [facility] ([facility]) [address] [place], [address], 10/18/2023 15:11:03 10/17/19 24 10/18/2023 COMP. METAB OLIC PANEL (14) bilirubin, total 0.4 mg/dL 0.0-1. 2 Not Available [facility] ([facility]) [address] [facility] [place], [address], 10/18/2023 15:11:03 10/17/19 24 10/18/2023 COMP. METAB OLIC PANEL (14) alkaline phosphatase 106 IU/L 44-121 Not Available [facility] ([facility]) [address] [facility] [place], [address], 10/18/2023 15:11:03 10/17/19 24 10/18/2023 COMP. METAB OLIC PANEL (14) AST (SGOT) 13 IU/L 0-40 Not Available [facility] ([facility]) [address] [facility] [place], [address], 10/18/2023 15:11:03 10/17/19 24 10/18/2023 COMP. METAB OLIC PANEL (14) ALT (SGPT) 15 IU/L 0-32 Not Available [facility] ([facility]) [address] [facility] [place], [address], 10/18/2023 15:11:03 10/17/19 24 10/18/2023 TSH TSH 0.791 uIU/m L 0.450- 4.500 Not Available [facility] ([facility]) [address] [facility] [place], [address], 10/18/2023 15:11:08 10/17/19 24 10/18/2023 MAGNE SIUM magnesium 2.4 mg/dL 1.6-2. 3 above high normal Not Available [facility] ([facility]) [address] [facility] [place], [address], 10/18/2023 15:11:13 02/16/20 23 01/06/2023 NM, hepat obili margaret scan No observ ation record ed. [email or web address] Not Available 2022 13:37:13 02/16/20 23 01/03/2023 [place]ford can cardi olite stres s test (PROC ) No observ ation record ed. [email or web address] Not Available 2022 13:37:47 02/16/20 23 01/02/2023 CT, abdom en + pelvi s, w/ contr ast No observ ation record ed. [email or web address] Not Available 2022 13:38:08 02/16/20 23 01/02/2023 CT, angio gram, chest , w/ contr ast No observ ation record ed. [email or web address] Not Available 2022 13:38:38 02/16/20 23 01/02/2023 XR, chest No observ ation record ed. [email or web address] Not Available 2022 13:39:59 03/23/20 23 12/21/2022 devic e check (PROC ) No observ ation record ed. [email or web address] Not Available 2022 11:39:55 07/16/19 24 07/06/2023 remot e devic e inter rogat ion (PROC ) No observ ation record ed. [email or web address] Not Available 2023 21:02:38 07/28/19 24 05/20/2023 US, duple x, venou s, upper extre mity No observ ation record ed. Not Available 2023 15:34:41 07/28/19 24 05/20/2023 XR, chest No observ ation record ed. [email or web address] Not Available 2023 15:35:01 07/28/19 24 04/13/2023 XR, chest No observ ation record ed. [email or web address] Not Available 2023 15:35:18 07/28/19 24 05/23/2023 MR, chola ngiop ancre atogr am, w/wo contr ast No observ ation record ed. Not Available 2023 15:35:59 07/28/19 24 05/20/2023 elect rocar diogr am No observ ation record ed. Not Available 2023 17:12:14 07/28/19 24 04/13/2023 elect rocar diogr am No observ ation record ed. Not Available 2023 17:12:41 08/10/19 24 08/09/2023 US, echoc ardio gram, trans thora cic, compl ete, w/ color flow No observ ation record ed. [email or web address] [facility]v [facility] [address] [place], [address], 08/11/2023 10:21:34 08/20/19 24 08/01/2023 devic e check (PROC ) No observ ation record ed. [email or web address] Not Available 2023 20:21:44 08/22/19 24 08/01/2023 rhyth m strip * No observ ation record ed. [email or web address] Not Available 2023 16:47:34 09/21/19 24 08/01/2023 elect jamin godfrey am No observ ation record ed. [email or web address] [facility]- In-Office Orders - For Internal Use Only - [address], [place], [address], 09/21/2023 14:08:01 10/08/19 24 10/06/2023 remot e devic e inter rogat ion (PROC ) No observ ation record ed. [id number] Not Available 2023 23:41:29 12/18/19 24 10/06/2023 remot e devic e inter rogat ion (PROC ) No observ ation record ed. [email or web address] Not Available 2023 10:30:19 01/24/20 24 01/05/2024 remot e devic e inter rogat ion (PROC ) No observ ation record ed. [id number] Not Available 2023 22:00:43 Result Notes None recorded. Problems Name Problem SNOMED Code Status Onset Date Resolution Date Notes Provider Name and Address Organization Details Recorded Time History of coronary artery bypass grafting 818053098 Active 2020 Tierney Alonso CMA [place], [place] - [place] - [place] 1 08:43:49 Parkinso n's disease 51397915 Active 2021 Isela Hampton RMMariano null, [place] - [place] 2 12:27:40 Ventricu lar prematur e complex 462593372 Active 2023 Isela Hampton RMA [place], [place] - [place] 4 15:35:54 Pulmonar y embolism 65714169 Active Bong Gracia Cnc [address], [address], [place], [address] , [place] - [place] 6 12:22:30 Deep venous thrombos is 800628483 Active Bong Gracia Cnc [address], [address], [place], [address] , [place] - [place] 6 12:23:52 Ventricu lar prematur e beats 41826929 Active Bong Gracia [facility]nc [address], [address], [place], [address] , [place] - [place] 6 12:22:30 Ventricu lar tachycar anton 32213247 Active Bong Gracia Cnc [address], [address], [place], [address] , [place] - [place] 6 12:23:52 Obesity 017853618 Active Bong Gracia Cnc [address], [address], [place], [address] , [place] - [place] 6 12:22:30 Anticoag ulant therapy Active 2008 Bong Gracia Cnc [address], [address], [place], [address] , [place] - [place] 6 12:22:30 Atrial fibrilla tion 90790108 Active 2009 Bong Gracia Cnc [address], [address], [place], [address] , [place] 6 12:23:52 Carotid artery occlusio n 580983917 Active 2012 Bong Gracia Cnc [address], [address], [place], [address] , [place] - [place] 6 12:22:30 Chest pain 10863277 Active 2008 Bong Gracia Cnc [address], [address], [place], [address] , [place] 6 12:22:30 Type 2 diabetes mellitus without complica tion 973664214 Active 2008 Bong Gracia Cnc [address], [address], [place], [address] , [place] 6 12:22:30 Hyperlip idemia 81446511 Active 2010 Bong Gracia Cnc [address], [address], [place], [address] , [place] - [place] 6 12:22:30 Essentia l hyperten bari 94205763 Active 2008 Bong Gracia Cnc [address], [address], [place], [address] , [place] 6 12:22:30 Maintena nce procedur e for cardiac pacemake r system Active 2008 Bong Gracia Cnc [address], [address], [place], [address] , [place] - [place] 6 12:22:30 Palpitat ions 98433097 Active 2008 Bong Gracia Cnc [address], [address], [place], [address] , [place] 6 12:22:30 Tobacco dependen ce syndrome 15757127 Active 2008 Bong Gracia Cnc [address], [address], [place], [address] , [place] - [place] 6 12:22:30 Syncope and collapse 556725682 Active 2008 Bong Gracia Cnc [address], [address], [place], [address] , [place] 6 12:23:52 Bradycar anton 88346620 Active 2016 Isela Memo RMA [place], [place] 7 10:56:28 Cardiac pacemake r in situ 806598779 Active 2016 Isela Memo R[place], [place] [facility] - [place] 7 10:57:27 Coronary arterios clerosis 02057918 Active 2018 Iwona Rivers PAID SEARCH SPECIALIST null, [place] [facility] - [place] 9 14:42:04 Paroxysm al atrial fibrilla tion 109659440 Active 2018 Trudi Johnston PAID SEARCH SPECIALIST [place], [place] 9 14:28:21 Coronary artery bypass graft Completed 201808/04/2021 Tiffany S Hanna PAID SEARCH SPECIALIST null, [place] [facility] - [place] 2 16:51:12 Coronary bypass graft finding [id number] Completed 201808/04/2021 Tiffany S Hanna PAID SEARCH SPECIALIST null, [place] [facility] 2 16:51:08 Neuropat hy 700926243 Active 2019 derian Huddleston RN null, [place] - [place] 0 11:12:26 Notes:Some problems listed i n Documents: #[id number], #[id number], #[id number] could not be added to this patient's chart. Please review these documents and add these problems to the patient's chart manually as needed. Problem Notes None recorded. Procedures Surgical History Date Name Laterality Status Provider Name and Address Organization Details Recorded Time 02/02/20 23 EGD/Endoscopy completed Tiffany S Hanna PAID SEARCH SPECIALIST IN [facility] 02/16/2023 13:20:06 01/29/20 21 Cardiac Cath completed Isela Memo RMA [place] [facility] 03/19/2021 14:54:41 11/26/19 21 Pacemaker/Defibri llator completed Isela Memo RMA [place] [facility] 03/22/2021 15:23:27 08/09/19 19 Cardiac Surgery completed Iwona Rivers PAID SEARCH SPECIALIST [place] - [facility] 08/23/2018 12:53:33 08/04/19 19 Cardiac Cath completed Isela Memo RMA [place] [facility] 09/25/2018 17:57:44 08/02/19 18 Other completed Isela Memo RMA [facility] 09/25/2018 17:59:06 11/12/19 09 Pacemaker/Defibri llator completed Isela Memo RMA [place] [facility] 01/21/2015 12:01:12 10/10/19 09 Other completed Isela Memo RMA [place] [facility] 01/21/2015 12:01:12 08/29/19 09 EP Study completed Isela Memo RMA [place] [facility] 01/21/2015 12:01:12 08/28/19 09 Cardiac Cath completed Isela Memo RMA [facility] 01/21/2015 12:01:12 08/20/19 08 Cardiac Cath completed Isela Memo RMA [facility] 01/21/2015 12:01:12 12/10/19 06 Cardiac Cath completed Isela Memo RMA [place] [facility] 01/21/2015 12:01:12 06/05/18 96 Gynecological Surgery completed Isela Memo RMA [facility] 01/21/2015 12:01:12 Imaging Results Imaging Date Name Status LastModified by Organization Details LastModified Time 01/06/2023 NM, hepatobiliary scan completed Information not available 02/15/2023 13:37:13 01/03/2023 lexiscan cardiolite stress test (PROC) completed Information not available 02/15/2023 13:37:47 01/02/2023 CT, abdomen + pelvis, w/ contrast completed Information not available 02/15/2023 13:38:08 01/02/2023 CT, angiogram, chest, w/ contrast completed Information not available 02/15/2023 13:38:38 01/02/2023 XR, chest completed Information no t available 02/15/2023 13:39:59 12/21/2022 device check (PROC) completed [email or web address] Infor mation not available 03/23/2023 11:39:55 07/06/2023 remote device interrogation (PROC) completed [email or web address] Information not available 07/16/2023 21:02:38 05/20/2023 US, duplex, venous, upper extremity completed Information not available 07/28/2023 15:34:41 05/20/2023 XR, chest completed [email or web address] Information no t available 07/28/2023 15:35:01 04/13/2023 XR, chest completed Information no t available 07/28/2023 15:35:18 05/23/2023 MR, cholangiopancreatogr am, w/wo contrast completed Information not available 07/28/2023 15:35:59 05/20/2023 electrocardiogram completed [email or web address] Informa tion not available 07/28/2023 17:12:14 04/13/2023 electrocardiogram completed [email or web address] Informa tion not available 07/28/2023 17:12:41 08/09/2023 US, echocardiogram, transthoracic, complete, w/ [facility] [place], [address], 08/11/2023 10:21:34 08/01/2023 device check (PROC) completed [email or web address] Infor mation not available 08/20/2023 20:21:44 08/01/2023 rhythm strip* completed Information not available 08/22/2023 16:47:34 08/01/2023 electrocardiogram completed [email or web address] As- In -Office Orders - For Internal Use Only - [address], [address], 09/21/2023 14:08:01 10/06/2023 remote device interrogation (PROC) completed [email or web address] Information not available 10/08/2023 23:41:29 10/06/2023 remote device interrogation (PROC) completed [email or web address] Information not available 12/18/2023 10:30:19 01/05/2024 remote device interrogation (PROC) completed [email or web address] Information not available 01/24/2024 22:00:43 Procedure Notes None recorded. Medical Equipment None Reported. Allergies Allergen ID Allergen Name Allergen Category Reaction Reaction Severity Criticality Documentation Date Start Date Code Code System Note Provider Name and Address Organization Details Recorded Time 0382423 metformin medicatio n diarrhea Not available Not available 06/24/2020 6809 RxNorm Anel Grant CMA null, [facility] 1 12:26:13 [id number] Imitrex medicatio n itching Not available Not available 06/20/2023 50579 3 RxNorm Lisa Josh [facility], [facility] 4 15:43:23 01341 acetamino phen / hydrocodo ne medicatio n vomiting Not available Not available 07/25/20132009 25711 2 RxNorm Not Available [facility] 4 10:57:52 09319 Nubain medicatio n rash Not available Not available 07/25/20132009 7550 RxNorm Not Available [facility] 4 10:57:53 55015 penicilli n V Not available rash Not available Not available 07/25/20132009 7984 RxNorm Not Available [facility] 4 10:57:53 64866 prednison e medicatio n rash Not available Not available 07/25/20132009 8640 RxNorm Not Available [facility] 4 10:57:53 07156 Substance with sulfonami de structure and antibacte rial mechanism of action (substanc e) medicatio n rash Not available Not available 07/25/20132009 33998 8003 SNOMED Not Available [facility] 4 10:57:53 Medications Name Sig Start Date Stop Date Status Note LastModified by Organization Details LastModified Time Prescript ion - Clarifica tion 01/12 completed [place] Not Available Not Available Not Available Prescript ion - Prior Authoriza tion Request 01/25 completed Not Available Not Available Not Available amantadin e HCl 50 mg/5 mL oral solution TAKE 10 ML BY MOUTH THREE TIMES DAILY active Not Available Not Available No t Available losartan 50 mg tablet Take 1 tablet every day by oral route. 07/31 completed Not Available Not Available Not Available cyclobenz aprine 10 mg tablet TAKE 1 TABLET BY MOUTH THREE TIMES DAILY NEEDED FOR MUSCLE SPASM 04/16 /2024 completed Not Available Not Available Not Available furosemid e 40 mg tablet Take 1 tablet every day by oral route as needed. 06/24 completed Not Available Not Available Not Available atorvasta tin 40 mg tablet TAKE 1 TABLET BY MOUTH ONCE DAILY 07/29 completed Not Available Not Available Not Available promethaz ine-DM 6.25 mg-15 mg/5 mL oral syrup TAKE 5 ML BY MOUTH THREE TIMES DAILY NEEDED FOR COUGH 08/10 completed Not Available Not Available Not Available atorvasta tin 80 mg tablet Take 1 tablet by mouth once daily 2023 active Not Available Not Available Not Avai lable Vitamin B-12 1,000 mcg/mL injection solution Inject 1 mL every month by intramus cular route. 06/05 completed Not Available Not Available Not Available ropinirol e 1 mg tablet TAKE 1 & 1/2 (ONE & ONE-HALF ) TABLETS BY MOUTH THREE TIMES DAILY 09/18 completed Not Available Not Available Not Available tizanidin e 2 mg tablet TAKE 1 TABLET BY MOUTH EVERY 8 HOURS FOR 14 DAYS active Not Available Not Available No t Available clindamyc in HCl 300 mg capsule TAKE 1 CAPSULE BY MOUTH EVERY 6 HOURS 06/20 completed Not Available Not Available Not Available albuterol sulfate 2.5 mg/3 mL (0.083 %) solution for nebulizat ion USE 1 VIAL IN NEBULIZE R EVERY 6 HOURS NEEDED FOR WHEEZING FOR SHORTNES S OF BREATH 02/10 completed Not Available Not Available Not Available trazodone 50 mg tablet 08/23 completed Not Available Not Available Not Available atorvasta tin 10 mg tablet 1 BY MOUTH DAILY 08/30 completed LIPITOR 10 MG TABLET Not Available Not Available Not Available azithromy ryanne 250 mg tablet TAKE 2 TABLETS BY MOUTH ON DAY 1, AND THEN TAKE 1 TABLET BY MOUTH ONCE A DAY ON DAY 2 THROUGH DAY 5 02/16 completed Not Available Not Available Not Available pravastat in 40 mg tablet TAKE 1 TABLET BY MOUTH AT BEDTIME 10/16 completed Not Available Not Available Not Available metoprolo l tartrate 100 mg tablet TAKE 1 TABLET BY MOUTH TWICE DAILY active Not Available Not Available No t Available tizanidin e 4 mg tablet TAKE 1 TABLET BY MOUTH NIGHTLY NEEDED 09/18 completed Not Available Not Available Not Available amiodaron e 200 mg tablet Take 0.5 tablets every day by oral route. 01/02 completed Not Available Not Available Not Available benzonata te 200 mg capsule TAKE 1 CAPSULE BY MOUTH THREE TIMES DAILY NEEDED FOR COUGH 07/06 completed Not Available Not Available Not Available albuterol sulfate 1.25 mg/3 mL solution for nebulizat ion USE 1 VIAL IN NEBULIZE R EVERY 6 HOURS NEEDED FOR SHORTNES S OF BREATH active Not Available Not Available No t Available hydrocodo ne 5 mg-acetam inophen 325 mg tablet TAKE 1 TABLET BY MOUTH EVERY 4 TO 6 HOURS NEEDED 07/31 completed Not Available Not Available Not Available bacitraci n 500 unit/gram eye ointment APPLY A ONE-HALF INCH RIBBON OF OINTMENT INTO LEFT EYE THREE TIMES DAILY FOR 10 DAYS 02/16 completed Not Available Not Available Not Available FreeStyle Lancets 28 gauge USE DIRECTED 4 TIMES DAILY active Not Available Not Available No t Available phenazopy ridine 200 mg tablet TAKE 1 TABLET BY MOUTH THREE TIMES DAILY NEEDED FOR PAIN 08/17 completed Not Available Not Available Not Available isosorbid e mononitra te ER 30 mg tablet,ex tended release 24 hr Take 1 tablet by mouth once daily active Not Available Not Available No t Available dexametha sone 6 mg tablet 06/24 completed Not Available Not Available Not Available ropinirol e 3 mg tablet TAKE 1 TABLET BY MOUTH THREE TIMES DAILY active Not Available Not Available No t Available sumatript an 50 mg tablet TAKE ONE TABLET BY MOUTH AT ONSET OF MIGRAINE . IF SYMPTOMS PERSIST, A SECOND DOSE MAY BE TAKEN IN 2 HOURS 06/20 completed Not Available Not Available Not Available Neurontin 600 mg tablet PRN 04/15 completed NEURONTI N 600 MG TABLET Not Available Not Available Not Available metronida zole 500 mg tablet 08/23 completed Not Available Not Available Not Available ciproflox acin 500 mg tablet TAKE 1 TABLET BY MOUTH TWICE DAILY FOR 7 DAYS 02/16 completed Not Available Not Available Not Available omeprazol e 40 mg capsule,d elayed release TAKE 1 CAPSULE BY MOUTH TWICE DAILY 02/16 completed Not Available Not Available Not Available aspirin 81 mg tablet,de layed release Take 1 tablet every day by oral route. 11/23 completed Not Available Not Available Not Available tramadol 50 mg tablet TAKE 1 TO 2 TABLETS BY MOUTH EVERY 6 HOURS NEEDED FOR PAIN . DO NOT EXCEED 5 PER 24 HOURS active Not Available Not Available No t Available amantadin e HCl 100 mg capsule TAKE 1 CAPSULE BY MOUTH THREE TIMES DAILY 09/18 completed Not Available Not Available Not Available triamcino lone acetonide 0.1 % topical cream 08/23 completed Not Available Not Available Not Available glimepiri de 1 mg tablet 1 BY MOUTH DAILY 04/12 completed AMARYL 1 MG TABLET Not Available Not Available Not Available baclofen 20 mg tablet Take 1 tablet twice a day by oral route. 08/23 completed Not Available Not Available Not Available oxycodone -acetamin ophen 5 mg-325 mg tablet TAKE 1 TABLET BY MOUTH TWICE DAILY NEEDED 02/16 completed Not Available Not Available Not Available warfarin 6 mg tablet TAKE 1 TO 2 TABLETS BY MOUTH DIRECTED BY THE [facility] 01/02 completed Not Available Not Available Not Available diltiazem 120 mg tablet TAKE ONE TABLET BY MOUTH ONCE DAILY 06/05 completed Not Available Not Available Not Available pravastat in 80 mg tablet Take 1 tablet every day by oral route for 90 days. 07/14 completed Not Available Not Available Not Available lorazepam 0.5 mg tablet TAKE 1 TABLET BY MOUTH TWICE DAILY NEEDED active Not Available Not Available No t Available methocarb leda 750 mg tablet TAKE 1 TABLET BY MOUTH 4 TIMES DAILY FOR 6 DAYS 06/24 completed Not Available Not Available Not Available Zoloft 50 mg tablet 1 BY MOUTH DAILY 11/06 completed ZOLOFT 50 MG TABLET Not Available Not Available Not Available tamsulosi n 0.4 mg capsule Take 1 capsule every day by oral route for 10 days. 01/01 completed Not Available Not Available Not Available dicyclomi ne 20 mg tablet Take 1 tablet twice a day by oral route. 01/27 completed Not Available Not Available Not Available baclofen 10 mg tablet Take 1 tablet twice a day by oral route. 09/06 completed Not Available Not Available Not Available dexametha sone 2 mg tablet TAKE 3 TABLETS BY MOUTH ONCE DAILY WITH BREAKFAS T FOR 5 DAYS 02/07 completed Not Available Not Available Not Available ropinirol e 2 mg tablet TAKE 1 TABLET BY MOUTH THREE TIMES DAILY 09/18 completed Not Available Not Available Not Available cephalexi n 500 mg capsule 08/23 completed Not Available Not Available Not Available pantopraz ole 40 mg tablet,de layed release TAKE 1 TABLET BY MOUTH TWICE DAILY 07/31 completed Not Available Not Available Not Available ropinirol e 0.5 mg tablet TAKE 2 TABLETS BY MOUTH THREE TIMES DAILY 02/21 completed Not Available Not Available Not Available dexametha sone 4 mg tablet TAKE 4 TABLETS BY MOUTH ONCE DAILY FOR 2 DAYS THEN TAKE 3 TABS ONCE DAILY FOR 3 DAYS 11/17 completed Not Available Not Available Not Available lisinopri l 10 mg tablet Take 0.5 tablets every day by oral route. 07/12 completed Not Available Not Available Not Available hyoscyami ne 0.125 mg sublingua l tablet DISSOLVE 1 TABLET IN MOUTH EVERY 4 HOURS NEEDED FOR CRAMPS active Not Available Not Available No t Available losartan 25 mg tablet Take 1 tablet every day by oral route. 08/23 completed Not Available Not Available Not Available metoprolo l tartrate 50 mg tablet TAKE 1 TABLET BY MOUTH TWICE DAILY 09/05 completed Not Available Not Available Not Available dexametha sone 0.75 mg tablet PLEASE SEE ATTACHED FOR DETAILED DIRECTIO NS 07/11 completed Not Available Not Available Not Available nitroglyc kaylyn 0.4 mg sublingua l tablet DISSOLVE ONE TABLET UNDER THE TONGUE EVERY 5 MINUTES NEEDED FOR CHEST PAIN. DO NOT EXCEED A TOTAL OF 3 DOSES IN 15 MINUTES active Not Available Not Available No t Available docusate sodium 100 mg capsule Take 1 capsule twice a day by oral route as needed. 12/12 completed Not Available Not Available Not Available gabapenti n 300 mg capsule TAKE 1 CAPSULE BY MOUTH THREE TIMES DAILY 06/24 completed Not Available Not Available Not Available insulin syringe U-100 with needle 1 mL 31 gauge x 10/18 completed Not Available Not Available Not Available lisinopri l 5 mg tablet Take 1 tablet by mouth once daily 2023 active Not Available Not Available Not Avai lable ergocalci ferol (vitamin D2) 1,250 mcg (50,000 unit) capsule TAKE 1 CAPSULE BY MOUTH ONCE A WEEK active Not Available Not Available No t Available clobetaso l 0.05 % topical ointment 08/23 completed Not Available Not Available Not Available levofloxa ryanne 500 mg tablet TAKE 1 TABLET BY MOUTH ONCE DAILY FOR 7 DAYS 07/11 completed Not Available Not Available Not Available oxycodone -acetamin ophen 7.5 mg-325 mg tablet TAKE 1 TABLET BY MOUTH EVERY 6 HOURS NEEDED FOR PAIN 06/24 completed Not Available Not Available Not Available methylpre dnisolone 4 mg tablets in a dose pack USE DIRECTED 06/20 completed Not Available Not Available Not Available albuterol sulfate HFA 90 mcg/actua tion aerosol inhaler INHALE 1 TO 2 PUFFS BY MOUTH EVERY 4 HOURS NEEDED active Not Available Not Available No t Available Zoloft 100 mg tablet 1 BY MOUTH DAILY 08/30 completed ZOLOFT 100 MG TABLET Not Available Not Available Not Available carbidopa 25 mg-levodo pa 100 mg tablet TAKE 1 TABLET BY MOUTH THREE TIMES DAILY 06/20 completed Not Available Not Available Not Available betametha sone dipropion ate 0.05 % topical ointment APPLY OINTMENT TOPICALL Y TO AFFECTED AREA THREE TIMES DAILY FOR 3 WEEKS THEN STOP FOR 1 WEEK, REPEAT NEEDED active Not Available Not Available No t Available ondansetr on 4 mg disintegr ating tablet DISSOLVE 1 TABLET IN MOUTH EVERY 6 HOURS NEEDED FOR NAUSEA active Not Available Not Available No t Available cefdinir 300 mg capsule 04/12 completed Not Available Not Available Not Available Imitrex 25 mg tablet TAKE 1 TABLET (25 MG) BY ORAL ROUTE AFTER ONSET OF MIGRAINE ; MAY REPEAT AFTER 2 HOURS IF HEADACHE RETURNS, NOT TO EXCEED 200MG IN 24HRS,CO N 08/23 completed Not Available Not Available Not Available Celexa 40 mg tablet Take 1 tablet every day by oral route. 07/31 completed Not Available Not Available Not Available ipratropi um bromide 0.02 % solution for inhalatio n INHALE 1 VIAL IN NEBULIZE R 4 TIMES DAILY 02/16 completed Not Available Not Available Not Available diazepam 5 mg tablet TAKE 1 TABLET BY MOUTH EVERY 12 HOURS NEEDED FOR MUSCLE SPASM 08/09 completed Not Available Not Available Not Available Cartia XT 180 mg capsule,e xtended release TAKE ONE CAPSULE BY MOUTH ONCE DAILY 08/23 completed Not Available Not Available Not Available enoxapari n 100 mg/mL subcutane ous syringe 08/23 completed Not Available Not Available Not Available insulin lispro (U-100) 100 unit/mL subcutane ous pen INJECT 30 UNITS SUBCUTAN EOUSLY WITH BREAKFAS T, 30 UNITS WITH LUNCH, AND 20 UNITS WITH DINNER PLUS SLIDING SCALE WITH MEALS AND BEDTIME SNACK. MAX DAILY DOSE IS 120 UNITS. active Not Available Not Available No t Available Lexapro 20 mg tablet Take 1 tablet every day by oral route. 08/23 completed Not Available Not Available Not Available ezetimibe 10 mg tablet TAKE 1 TABLET BY MOUTH ONCE DAILY DIRECTED active Not Available Not Available No t Available insulin aspart (U-100) 100 unit/mL (3 mL) subcutane ous pen 23 units three times daily with meals plus aggressi ve sliding scale with meals and bedtime snack 11/17 completed Not Available Not Available Not Available metoprolo l tartrate 25 mg tablet TAKE 1 & 1/2 (ONE & ONE-HALF ) TABLETS BY MOUTH TWICE DAILY 07/12 completed Not Available Not Available Not Available nitrofura ntoin monohydra te/macroc rystals 100 mg capsule TAKE 1 CAPSULE BY MOUTH TWICE DAILY FOR 7 DAYS 02/17 completed Not Available Not Available Not Available BD Ultra-Fin e Mini Pen Needle 31 gauge x 3/16 01/25 completed Not Available Not Available Not Available pregabali n 50 mg capsule TAKE 1 CAPSULE BY MOUTH AT BEDTIME FOR 2 DAYS THEN TAKE 1 TWICE DAILY 01/12 completed Not Available Not Available Not Available pregabali n 75 mg capsule TAKE 1 CAPSULE BY MOUTH TWICE DAILY active Not Available Not Available No t Available Vitamin B-12 1 INJECTIO N MONTHLY 01/20 completed VITAMIN B-12 1,000 MCG/ML SOLUTION Not Available Not Available Not Available warfarin 1-1/2 TO 2 TABS P.O. DAILY TAKE DIRECTED 04/15 completed WARFARIN 5 MG TABLET Not Available Not Available Not Available Cardizem 1 BY MOUTH DAILY 01/20 completed CARDIZEM 120 MG TABLET Not Available Not Available Not Available Benadryl PRN 01/30 completed BENADRYL 25 MG CAPSULE Not Available Not Available Not Available Pravachol 1 P.O. AT BEDTIME 01/20 completed PRAVACHO L 40 MG TABLET Not Available Not Available Not Available Toprol XL 1 BY MOUTH DAILY 09/26 completed TOPROL XL 25MG Not Available Not Available Not Available Flexeril PRN 01/20 completed FLEXERIL 10 MG TABLET Not Available Not Available Not Available glimepiri de 1 BY MOUTH DAILY 04/15 completed GLIMEPIR GREYSON 1 MG TABLET Not Available Not Available Not Available Levemir U-100 Insulin 100 unit/mL subcutane ous solution 08/23 completed Not Available Not Available Not Available Levemir FlexPen 100 unit/mL (3 mL) solution subcutane ous insulin pen active Not Available Not Available Not Available Januvia 50 mg tablet Take 1 tablet every day by oral route at bedtime. 07/31 completed Not Available Not Available Not Available Januvia 100 mg tablet Take 1 tablet every day by oral route. 08/23 completed Not Available Not Available Not Available FreeStyle Lite Strips USE 1 STRIP TO CHECK GLUCOSE 4 TIMES DAILY active Not Available Not Available No t Available FeroSul 325 mg (65 mg iron) tablet TAKE 1 TABLET BY MOUTH EVERY OTHER DAY active Not Available Not Available No t Available Lantus Solostar U-100 Insulin 100 unit/mL (3 mL) subcutane ous pen Inject 40 units twice a day by subcutan eous route at bedtime for 90 days. active Not Available Not Available No t Available levocetir izine 5 mg tablet TAKE 1 TABLET BY MOUTH ONCE DAILY active Not Available Not Available No t Available diclofena c 1 % topical gel APPLY 2 GRAM TO THE AFFECTED AREA(S) BY TOPICAL ROUTE 4 TIMES PER DAY, NEEDED 06/24 completed Not Available Not Available Not Available Dexilant 30 mg capsule, delayed release Take 1 capsule every day by oral route. 08/23 completed Not Available Not Available Not Available Vitamin B-12 5,000 mcg sublingua l tablet Place 1 tablet every day by sublingu al route. 08/23 completed Not Available Not Available Not Available Xarelto 1 BY MOUTH DAILY 01/20 completed XARELTO 20 MG TABLET Not Available Not Available Not Available Xarelto 20 mg tablet TAKE 1 TABLET BY MOUTH ONCE DAILY active Not Available Not Available No t Available Victoza 2-Colton 0.6 mg/0.1 mL (18 mg/3 mL) subcutane ous pen injector Inject 1.2 mg every day by subcutan eous route. 08/23 completed Not Available Not Available Not Available Invokana 100 mg tablet Take 1 tablet every day by oral route. 07/31 completed Not Available Not Available Not Available Invokana 300 mg tablet Take 1 tablet every day by oral route. 08/23 completed Not Available Not Available Not Available Breo Ellipta 100 mcg-25 mcg/dose powder for inhalatio n INHALE 1 PUFF BY MOUTH ONCE DAILY 07/31 completed Not Available Not Available Not Available Fioricet 50 mg-300 mg-40 mg capsule Take 1 capsule every 4 hours by oral route as needed. 08/23 completed Not Available Not Available Not Available Otezla 30 mg tablet TAKE 1 TABLET BY MOUTH TWICE DAILY active Not Available Not Available No t Available Jardiance 25 mg tablet Take 1 tablet by mouth once daily. E11.65 2023 active Not Available Not Available Not Avai lable Rexulti 1 mg tablet Take 0.5 tablets every day by oral route. 09/18 completed Not Available Not Available Not Available Rexulti 0.5 mg tablet 08/23 completed Not Available Not Available Not Available Rexulti 2 mg tablet TAKE 1 TABLET BY MOUTH ONCE DAILY 07/31 completed Not Available Not Available Not Available Repatha SureClick 140 mg/mL subcutane ous pen injector 12/13 completed Not Available Not Available Not Available Viberzi 75 mg tablet 08/23 completed Not Available Not Available Not Available Trintelli x 5 mg tablet Take 1 tablet every day by oral route. 01/01 completed Not Available Not Available Not Available Trintelli x 20 mg tablet TAKE 1 TABLET BY MOUTH ONCE DAILY active Not Available Not Available No t Available BD Shauna 2nd Gen Pen Needle 32 gauge x USE 1 TO INJECT INSULIN SIX TIMES DAILY active Not Available Not Available No t Available [facility] ODT 75 mg disintegr ating tablet as directed , as needed active Not Available Not Available No t Available FreeStyle Naz 2 Sensor kit USE DIRECTED 4 TIMES DAILY active Not Available Not Available No t Available FreeStyle Naz 2 Tyler USE TO TEST BLOOD SUGAR 4 TIMES DAILY active Not Available Not Available No t Available Lagevrio 200 mg capsule (EUA) TAKE 4 CAPSULES BY MOUTH TWICE DAILY FOR 5 DAYS 06/20 completed Not Available Not Available Not Available Vitals Date Recorded Body height Provider Name an d Address Organization Details Last Updated DateTime 02/16/2023 154.94 cm Estrella Lopez [facility] 02/16/2023 10:56:06 Date Recorded Body mass index (BMI) Body weight Provider Name and Address Organization Details Last Updated DateTime 02/16/2023 41.2 kg/m2 40660.14 g Estrella Lopez [facility] 02/16/2023 10:56:59 Date Recorded Heart rate Provider Name an d Address Organization Details Last Updated DateTime 02/16/2023 76 /min Estrella Lopez [facility] 02/16/2023 10:58:10 Date Recorded Oxygen saturation Oxygen saturation in Arterial blood by Pulse oximetry Provider Name and Address Organization Details Last Updated DateTime 02/16/2023 98 % 98 % Estrella Lopez [facility] 02/16/2023 10:58:13 Date Recorded Body height Provider Name an d Address Organization Details Last Updated DateTime 02/17/2023 154.94 cm Tiffany S Hanna [facility] 02/17/2023 11:02:02 Date Recorded Body mass index (BMI) Body weight Provider Name and Address Organization Details Last Updated DateTime 02/17/2023 40.8 kg/m2 35910.31 g Tiffany S Hanna [facility] 02/17/2023 11:02:08 Date Recorded Heart rate Provider Name an d Address Organization Details Last Updated DateTime 02/17/2023 80 /min Tiffany S Hanna [facility] 02/17/2023 11:08:46 Date Recorded Oxygen saturation Oxygen saturation in Arterial blood by Pulse oximetry Provider Name and Address Organization Details Last Updated DateTime 02/17/2023 96 % 96 % Tiffany Ferreira CMA [facility] 02/17/2023 11:08:55 Date Recorded Body height Provider Name an d Address Organization Details Last Updated DateTime 06/20/2023 154.94 cm Lisa Moreno [facility] 06/20/2023 15:46:18 Date Recorded Body mass index (BMI) Body weight Provider Name and Address Organization Details Last Updated DateTime 06/20/2023 40.2 kg/m2 60194.46 g Lisa Josh [facility] 06/20/2023 15:46:23 Date Recorded Heart rate Provider Name an d Address Organization Details Last Updated DateTime 06/20/2023 89 /min Lisa Josh [facility] 06/20/2023 15:47:53 Date Recorded Respiratory rate Provider Name a nd Address Organization Details Last Updated DateTime 06/20/2023 16 /min Lisa Josh [place] [facility] 06/20/2023 15:47:57 Date Recorded Oxygen saturation Oxygen saturation in Arterial blood by Pulse oximetry Provider Name and Address Organization Details Last Updated DateTime 06/20/2023 95 % 95 % Lisa Moreno [facility] 06/20/2023 15:48:00 Date Recorded Body height Provider Name an d Address Organization Details Last Updated DateTime 08/01/2023 154.94 cm Isela Memo RMA [place] [facility] 08/01/2023 15:40:46 Date Recorded Body mass index (BMI) Body weight Provider Name and Address Organization Details Last Updated DateTime 08/01/2023 38.5 kg/m2 45651.84 g Isela Memo RMA [facility] 08/01/2023 15:41:13 Date Recorded Heart rate Provider Name an d Address Organization Details Last Updated DateTime 08/01/2023 78 /min Isela Memo RMA [place] [facility] 08/01/2023 15:47:54 Date Recorded Body height Provider Name an d Address Organization Details Last Updated DateTime 09/19/2023 154.94 cm Tiffany S Hanna [facility] 09/19/2023 16:00:08 Date Recorded Body mass index (BMI) Body weight Provider Name and Address Organization Details Last Updated DateTime 09/19/2023 37 kg/m2 14919.03 g Tiffany S Hanna [facility] 09/19/2023 16:00:14 Date Recorded Heart rate Provider Name an d Address Organization Details Last Updated DateTime 09/19/2023 80 /min Tiffany S Hanna [facility] 09/19/2023 16:06:45 Date Recorded Oxygen saturation Oxygen saturation in Arterial blood by Pulse oximetry Provider Name and Address Organization Details Last Updated DateTime 09/19/2023 95 % 95 % Tiffany S Hanna [facility] 09/19/2023 16:06:48 Date Recorded Systolic blood pressure Diastolic blood pressure Provider Name and Address Organization Details Last Updated DateTime 02/16/2023 122 mm[Hg] 80 mm[Hg] Estrella John [facility] 02/16/2023 10:58:03 Date Recorded Systolic blood pressure Diastolic blood pressure Provider Name and Address Organization Details Last Updated DateTime 02/17/2023 112 mm[Hg] 64 mm[Hg] Tiffany S Hanna [facility] 02/17/2023 11:08:42 Date Recorded Systolic blood pressure Diastolic blood pressure Provider Name and Address Organization Details Last Updated DateTime 06/20/2023 120 mm[Hg] 78 mm[Hg] Lisa Moreno [facility] 06/20/2023 15:47:36 Date Recorded Systolic blood pressure Diastolic blood pressure Provider Name and Address Organization Details Last Updated DateTime 08/01/2023 130 mm[Hg] 76 mm[Hg] Isela LUCERO [place] [facility] 08/01/2023 15:49:07 Date Recorded Systolic blood pressure Diastolic blood pressure Provider Name and Address Organization Details Last Updated DateTime 09/19/2023 108 mm[Hg] 66 mm[Hg] Tiffany S Hanna [facility] 09/19/2023 16:06:41 Social History Question Answer Notes LastModified by Organizat ion Details LastModified Time Tobacco Smoking Status Former Smoker Not Available [employer] 09/19/2023 15:56:22 Do You Have An Advance Directive? No [email or web address] Information not available 09/19/2023 What Is Your Level Of Alcohol Consumption? Moderate [email or web address] Information not available 09/19/2023 What Is Your Level Of Caffeine Consumption? Moderate 1.5 Cups Of Coffee Daily Information not available 08/01/2023 Are You Currently Employed? No [email or web address] Information not available 06/20/2023 What Type Of Diet Are You Following? REGULAR Tries To Follow Cardiac And Diabetic Diet Information not available 08/01/2023 Which Illicit Or Recreational Drugs Have You Used? None [email or web address] Information not available 09/19/2023 Do You Or Have You Ever Used E-cigarettes Or Vape? Never Used Electronic Cigarettes Information not available 01/25/2021 What Is Your Occupation? Disability [email or web address] Information not available 06/20/2023 Family History Of Heart Disease? Yes [email or web address] Information not available 06/20/2023 When Did You Quit Smoking? 6-10yearssinc elastcigarett e Information not available 09/29/2021 Live Alone Or With Others? Alone Partner- 04/2018 Information not available 08/01/2023 History Of Hyperlipidemia Yes Information not available 01/21/2015 History Of Diabetes Mellitus No Information no t available 01/21/2015 Prior History Of Heart Disease No Information not available 01/21/2015 History Of Obesity Yes Information not available 01/21/2015 Sedentary Lifestyle Yes Information not available 01/21/2015 Postmenopausal Female Yes Information not available 01/21/2015 Hypertension Yes Information not available 01/21/2015 Have You Had A Fever And/or Symptoms Of A Lower Respiratory Illness (cough, Difficulty Breathing, Etc)? No Information not available 10/10/2019 Have You Had Any Of These Symptoms: Chills ,Headache, Fatigue, Muscle Or Body Aches , Sore Throat, New Loss Of Taste Or Smell, Nausea Or Vomiting, Or Diarrhea? No [email or web address]-27 Information not available 06/24/2020 Have You Had A COVID-19 Vaccine In The Last 7 Days? No [email or web address] Information not available 06/24/2020 In The Past 10 Days, Have You Been Told You May Have COVID-19 Or Have Been Tested For COVID-19? No [email or web address] Information not available 02/15/2022 0) Information Provided By : Patient [email or web address] Information not available 06/20/2023 1a) Does The Patient/Caregiver /Family Report The PATIENT Having Any Of These NEW Symptoms Such As Cough? No API-27 Information not available 06/20/2023 1b) Does The Patient/Caregiver /Family Report The PATIENT Having Any Of These NEW Symptoms Such As Diarrhea? No API-27 Information not available 06/20/2023 1c) Does The Patient/Caregiver /Family Report The PATIENT Having Any Of These NEW Symptoms Such As Fever/chills? No API-27 Information not available 06/20/2023 1d) Does The Patient/Caregiver /Family Report The PATIENT Having Any Of These NEW Symptoms Such As Nasal Congestion/Runny Nose? No API-27 Information not available 06/20/2023 1e) Does The Patient/Caregiver /Family Report The PATIENT Having Any Of These NEW Symptoms Such As Respiratory Distress (acute)? No API-27 Information no t available 06/20/2023 1f) Does The Patient/Caregiver /Family Report The PATIENT Having Any Of These NEW Symptoms Such As Rash? No API-27 Information not available 06/20/2023 1g) Does The Patient/Caregiver /Family Report The PATIENT Having Any OTHER NEW Symptoms (list)? If No NEW Symptoms, Enter ? N o? No [email or web address] Information not available 06/20/2023 Marital Status Single API-27 Informatio n not available 06/20/2023 What Was The Date Of Your Most Recent Tobacco Screening? 08/01/2023 Information not available 08/01/2023 What Is Your Relationship Status? Single [email or web address] Information not available 06/20/2023 Seat Belts Used Routinely Yes [email or web address] Information not available 06/20/2023 Do You Have Smoke And Carbon Monoxide Detectors In Your Home? Yes [email or web address] Information not available 06/20/2023 Are You Passively Exposed To Smoke? No Information no t available 10/10/2019 Do You Or Have You Ever Used Smokeless Tobacco? Never Used Smokeless Tobacco Information not available 01/25/2021 Do You Use Any Illicit Or Recreational Drugs? No Information not available 03/22/2021 How Many Years Have You Smoked Tobacco? 25 Information not available 01/25/2021 Do You Or Have You Ever Used Any Other Forms Of Tobacco Or Nicotine? [facility] available 04/12/2021 Sex: Female Functional Status Question Answer Note LastModified by Organization D etails LastModified Time What is your exercise level? Moderate [email or web address] Information not available 09/19/2023 Mental Status None recorded. Family History Relationship Description Onset Age of this Age Resolved Age Notes LastModified by Organization Details LastModified Time Father Congestive heart failure 87 [email or web address] Not available 2023 15:22:17 Father Coronary artery bypass graft [email or web address] Not available 15:56:21 Mother Atrial fibrillation [email or web address] Not available 15:56:21 Mother Heart disease [email or web address] Not available 2015 12:05:21 Brother Cerebrovascu lar accident lreuter Not available 09/2015 12:05:21 Sister Atrial fibrillation [email or web address] Not available 15:56:21 Medical History Condition Response other neurologic issue Y asthma N heart arrhythmia Y COPD N acid reflux/GERD N diabetes mellitus Y deep vein thrombosis Y depression Y high blood pressure Y atrial fibrillation Y other skin disorder issue Y arrhythmia Y heart problems N pulmonary embolism Y hypothyroidism N pacemaker Y coronary artery disease Y obesity Y tobacco abuse Y other Y other cardiovascular issue Y high cholesterol N cancer N blood clots N hyperlipidemia Y Gynecological HistoryNo gynecological history recorded. Obstetrics History GPAL:G 0 P 0 0 0 0 Immunizations Vaccine Type Date Status Note Provider Nam e and Address Organization Details Recorded Time Influenza, split virus, quadrivalent, PF 03/22/2019 completed Not Available [facility] 02:[facility] Past Encounters Encounter ID Performer Location Encounter Start Date Encounter Closed Date Diagnosis/Indication Diagnosis SNOMED-CT Code Diagnosis ICD10 Code Diagnosis Note [id number] zFNL_[facility]_ [facility] [address] 06/27/2008 00:00:00 [id number] zFNL_[facility]_ [facility] [place] [address] 07/25/2008 00:00:00 [id number] zFNL_[facility]_ [facility] [place] [address] 09/26/2008 00:00:00 [id number] zFNL_[facility]A_ [facility] [place] [address] 11/07/2008 00:00:00 [id number] zFNL_[facility]_ [facility] [place] [address] 01/30/2009 00:00:00 [id number] zFNL_[facility]A_ [facility] [place] [address] 03/05/2009 00:00:00 [id number] zFNL_EVA_ [facility] [place] [address] 08/31/2009 00:00:00 [id number] zFNL_EVA_ [facility] [place] [address] 04/12/2010 00:00:00 [id number] zFNL_EVA_ SM[facility] [place] [address] 10/12/2010 00:00:00 [id number] zFNL_EVA_ [facility] [place] [address] 10/29/2010 00:00:00 [id number] zFNL_EVA_ [facility] [place] [address] 04/19/2011 00:00:00 [id number] zFNL_EVA_ SM[facility] [place] [address] 02/03/2012 00:00:00 [id number] zFNL_EVA_ [facility] [place] [address] 06/12/2012 00:00:00 [id number] zFNL_EVA_ [facility] [place] [address] 04/16/2013 00:00:00 [id number] Patsy Lugo RN EVA_SMG_C ARDIAC_90 [facility] [id number] [place] [address] 08/23/2013 15:08:56 08/23/2013 15:45:05 [id number] Mirtha Teofilo EVA_SMG_C ARDIAC_90 [facility] [id number] [place] [address] 12/13/2013 14:00:06 12/13/2013 14:33:11 [id number] Nohemy Hernandez CARISA EVA_SMG_C ARDIAC_90 [facility] [id number] [address] [place] [address] 03/21/2014 14:03:44 03/21/2014 14:36:25 [id number] Hayde siddiqui Byron EVA_SMG_C ARDIAC_90 [facility] [id number] [address] [place] [address] 09/25/2014 15:09:15 09/25/2014 15:36:08 [id number] Joshua Chaudhary EVA_SMG_C ARDIAC_90 [facility] [id number] [address] [place] [address] 02/24/2015 11:48:08 02/24/2015 12:14:42 [id number] Bong Garrett Hoyt EVA_SMG_C ARDIAC_90 [facility] [id number] [address] [facility] [address] [place] [address] 06/08/2015 11:28:25 06/08/2015 12:31:23 Atrial fibrillation 79402017 I48.0 Syncope and collapse 309 654914 R55 Ventricula r tachycardia 65595727 I47.2 Deep venou s thrombosis 629684518 I82.409 Bradycardia 87618605 R00 .1 [id number] Pattie Bauman RN EVA_SMG_C ARDIAC_90 [facility] [id number] [address] [facility] [address] [place] [address] 06/08/2015 11:26:18 06/08/2015 17:14:49 [id number] Patsy Lugo RN EVA_SMG_C ARDIAC_90 [facility] [id number] [address] [facility] [address] [place] [address] 09/08/2015 11:48:57 09/08/2015 12:53:53 [id number] Patsy Lugo RN EVA_SMG_C ARDIAC_90 [facility] [id number] [address] [facility] [address] [place] [address] 12/28/2015 16:19:16 12/28/2015 17:10:27 [id number] Patsy Lugo RN EVA_SMG_C ARDIAC_90 [facility] [id number] [address] [facility] [address] [place] [address] 04/01/2016 15:31:54 04/01/2016 16:41:46 [id number] Bong Gracia [facility] EVA_SMG_C ARDIAC_90 [facility] [id number] [address] [facility] [address] [place] [address] 06/13/2016 10:53:05 06/13/2016 11:43:10 Ventricular premature beats 56825603 I49.3 Atrial fibrillation 4943 6004 I48.0 Cardiac pa cemaker in situ 479736805 Z95.0 Palpitations 96933716 R0 0.2 Hyperlipidemia 52005020 E78.2 [id number] Pattie Bauman RN EVA_SMG_C ARDIAC_90 [facility] [id number] [place] [address] 07/07/2016 16:07:28 07/07/2016 16:38:40 [id number] Pattie Bauman RN EVA_SMG_C ARDIAC_90 [facility] [id number] [place] [address] 10/06/2016 16:26:09 10/06/2016 17:07:58 [id number] Bong Hoyt EVA_SMG_C ARDIAC_90 [facility] [id number] [place] [address] 08/01/2017 14:17:22 08/01/2017 15:49:28 Atrial fibrillation 58297048 I48.0 Cardiac pa cemaker in situ 108090375 Z95.0 Deep venou s thrombosis 050440948 I82.409 Ventricula r premature beats 03004709 I49.3 Ventricula r tachycardia 95883107 I47.2 [id number] Alejandra Pepper MINE EVA_SMG_C ARDIAC_90 [address] [id number] [place] [address] 08/28/2018 12:53:11 08/28/2018 13:54:58 Anticoagulant therapy 897349580 Z79.01 Therapeuti c drug monitoring assay 41207449 Z51.81 Atrial fibrillation 4943 6004 I48.91 [id number] Ingrid Turner MD EVA_SMG_C ARDIAC_90 [facility] [id number] [place] [address] 08/30/2018 14:33:13 08/30/2018 15:17:48 Atrial fibrillation 26317935 I48.91 Coronary arteriosclerosis 53994761 I25.10 [id number] Tess Soto RN EVA_SMG_C ARDIAC_Wa rk_[address] [place] [address] 09/04/2018 10:24:10 09/04/2018 10:42:31 Anticoagulant therapy 685890598 Z79.01 Therapeuti c drug monitoring assay 61817465 Z51.81 Atrial fibrillation 4943 6004 I48.91 [id number] Sandi Espinal MD EVA_SMG_C ARDIAC_90 [address] [id number] [place] [address] 09/06/2018 11:30:29 09/06/2018 12:28:40 Deep venous thrombosis 437658356 I82.409 Ventricula r tachycardia 27720281 I47.2 Paroxysmal atrial fibrillation 654728784 I48.0 Cardiac pa cemaker in situ 381415275 Z95.0 Coronary arteriosclerosis 98384805 I25.10 Coronary b ypass graft finding 637812421 Z95.1 [id number] Ingrid Turner MD EVA_SMG_C ARDIAC_90 [facility] [id number] [place] [address] 09/06/2018 14:35:44 09/06/2018 15:12:28 Coronary arteriosclerosis 02326959 I25.10 Atrial fibrillation 4943 6004 I48.91 Cardiac pa cemaker in situ 195906546 Z95.0 [id number] Alejandra Pepper RN EVA_SMG_C ARDIAC_90 [address] [id number] [place] [address] 09/11/2018 15:16:48 09/11/2018 15:52:09 Anticoagulant therapy 300827654 Z79.01 Therapeuti c drug monitoring assay 88645497 Z51.81 Atrial fibrillation 4943 6004 I48.91 Patient dose of Warfarin verified? {{Yes* No} } Any recent medication changes? {{Yes No*} } Upcoming surgery or procedures ? {{Yes No*} } Bruising/b leeding or other concerns? {{Yes No*} } Patient dosing instructio ns documented on flow sheet per protocol. [id number] Tess Soto RN ANGIE_SMG_C ARDIAC_Wa rk_[address] [address] 09/18/2018 11:34:41 09/18/2018 11:42:21 Anticoagulant therapy 203557105 Z79.01 Patient dose of Warfarin verified? {{Yes* No} } Any recent medication changes? {{Yes No*} } Upcoming surgery or procedures ? {{Yes No*} } Bruising/b leeding or other concerns? {{Yes No*} } Patient dosing instructio ns documented on flow sheet per protocol. on augmentin for UTI day 7 of 10 Atrial fibrillation 4943 6004 I48.91 Therapeuti c drug monitoring assay 79244807 Z51.81 [id number] Bong Hoyt EVA_SMG_C ARDIAC_90 [facility] [id number] [address] [facility] ,[address] [place] [address] 09/26/2018 12:14:33 09/26/2018 13:28:48 Paroxysmal atrial fibrillation 844898730 I48.0 Cardiac pa cemaker in situ 339582339 Z95.0 Ventricula r premature beats 88353767 I49.3 [id number] Shilpa Sheriff, CLEMENT EVA_SMG_E [address]DO[address] [place] [address] 09/28/2018 13:50:15 09/28/2018 14:34:26 Type 2 diabetes mellitus without complication 347889525 E11.9 Dyslipidemia 905200369 E 78.5 Essential hypertension 16951267 I10 Diabetic p eripheral neuropathy 571940071 E11.40 Coronary arteriosclerosis in [place] artery 6980659726 107 I25.10 Diabetic on insulin 1707 58281 Z79.4 [id number] Tess Soto RN EVA_SMG_C ARDIAC_Wa rk_[address] [address] 10/16/2018 11:34:15 10/16/2018 11:52:18 Deep venous thrombosis 838254160 I82.409 Anticoagulant therapy 18 6558484 Z79.01 Patient dose of Warfarin verified? {{Yes* No} } Any recent medication changes? {{Yes No*} } Upcoming surgery or procedures ? {{Yes No*} } Bruising/b leeding or other concerns? {{Yes No*} } Patient dosing instructio ns documented on flow sheet per protocol. Therapeuti c drug monitoring assay 64736482 Z51.81 [id number] Tess Soto RN EVA_SMG_C ARDIAC_Wa rk_[address] [place] [address] 11/27/2018 09:36:24 11/27/2018 09:47:47 Anticoagulant therapy 016370017 Z79.01 Patient dose of Warfarin verified? {{Yes* No} } Any recent medication changes? {{Yes No*} } Upcoming surgery or procedures ? {{Yes No*} } Bruising/b leeding or other concerns? {{Yes No*} } Patient dosing instructio ns documented on flow sheet per protocol. Therapeuti c drug monitoring assay 81579114 Z51.81 Atrial fibrillation 4943 6004 I48.91 [id number] MD ANGIE Peña_SMG_C ARDIAC_90 [address] [id number],[facility] [address] [place] [address] 12/12/2018 11:35:24 12/12/2018 12:36:23 Deep venous thrombosis 940275962 I82.409 Ventricula r tachycardia 14587934 I47.2 Paroxysmal atrial fibrillation 056503817 I48.0 Cardiac pa cemaker in situ 313220114 Z95.0 Coronary arteriosclerosis 03355395 I25.10 History of coronary artery bypass grafting 251738513 Z95.1 [id number] Bong Hoyt EVA_SMG_C ARDIAC_90 [address] [id number] [place] [address] 01/02/2019 12:14:03 01/02/2019 13:15:44 Paroxysmal atrial fibrillation 213880134 I48.0 Cardiac pa cemaker in situ 298324515 Z95.0 Bradycardia 02466104 R00 .1 Ventricula r premature beats 12460070 I49.3 [id number] Shilpa Sheriff, HEAD TURNING MACHINE OPERATOR EVA_SMG_E NDO_[address] [place] [address] 01/25/2019 13:31:49 01/25/2019 14:19:28 Type 2 diabetes mellitus without complication 345636054 E11.9 Dyslipidemia 513973333 E 78.5 Essential hypertension 77451980 I10 Diabetic p eripheral neuropathy 975998376 E11.40 Coronary arteriosclerosis in [place] artery 4765054254 107 I25.10 Diabetic on insulin 1707 31206 Z79.4 [id number] Shilpa Sheriff, HEAD TURNING MACHINE OPERATOR EVA_SMG_E NDO_[address] [place] [address] 03/22/2019 15:15:48 03/22/2019 15:48:59 Type 2 diabetes mellitus without complication 274348927 E11.9 Dyslipidemia 992074853 E 78.5 Essential hypertension 65258910 I10 Diabetic p eripheral neuropathy 335385854 E11.40 Coronary arteriosclerosis in [place] artery 9304853911 107 I25.10 Diabetic on insulin 1707 06838 Z79.4 [id number] MD ANGIE Ray_SMG_E NDO_[address] [place] [address] 06/07/2019 10:53:40 06/07/2019 11:52:35 Dyslipidemia 802012311 E78.5 Essential hypertension 29391510 I10 Diabetic p eripheral neuropathy 996975088 E11.40 Coronary arteriosclerosis in [place] artery 8575089939 107 I25.10 Diabetic on insulin 1707 16580 Z79.4 Uncontroll ed type 2 diabetes mellitus 289034646 E11.65 [id number] Bong Gracia [facility] EVA_SMG_C ARDIAC_90 1[facility] [id number] [address] [facility] [address] [place] [address] 07/15/2019 10:49:52 07/15/2019 12:11:36 Cardiac pacemaker in situ 016873574 Z95.0 Bradycardia 94162847 R00 .1 Ventricula r premature beats 61144836 I49.3 Paroxysmal atrial fibrillation 581326813 I48.0 Hyperlipidemia 28613142 E78.2 [id number] Shilpa Sheriff, HEAD TURNING MACHINE OPERATOR EVA_SMG_E NDO_[address] [place] [address] 10/10/2019 13:23:06 10/10/2019 15:02:50 Health education given 819963686 Z71.9 Uncontroll ed type 2 diabetes mellitus 314884941 E11.65 Dyslipidemia 627208009 E 78.5 Essential hypertension 76614444 I10 Diabetic p eripheral neuropathy 680306977 E11.40 Coronary arteriosclerosis in [place] artery 8747476879 107 I25.10 Diabetic on insulin 1707 73310 Z79.4 [id number] Shilpa CLEMENT Sheriff EVA_SMG_E NDO_[address] [place] [address] 01/09/2020 14:07:41 01/09/2020 14:37:14 Health education given 752778016 Z71.9 Uncontroll ed type 2 diabetes mellitus 279457330 E11.65 Dyslipidemia 010436197 E 78.5 Essential hypertension 76010293 I10 Diabetic p eripheral neuropathy 516143649 E11.40 Coronary arteriosclerosis in [place] artery 7333755958 107 I25.10 Diabetic on insulin 1707 09943 Z79.4 [id number] Bong Gracia [facility] EVA_SMG_C ARDIAC_90 1[facility] [id number] 9[address] [facility] [address] [place] [address] 01/29/2020 11:01:08 01/29/2020 15:25:31 Cardiac pacemaker in situ 393919282 Z95.0 Bradycardia 30670897 R00 .1 Paroxysmal atrial fibrillation 677907275 I48.0 Ventricula r premature beats 21251530 I49.3 Hyperlipidemia 03088334 E78.2 [id number] MD ANGIE Ray_SMG_E NDO_[address] [place] [address] 06/24/2020 11:16:39 06/24/2020 12:21:26 Type 2 diabetes mellitus 79867353 E11.9 Uncontroll ed type 2 diabetes mellitus 268754836 E11.65 Dyslipidemia 171149505 E 78.5 Essential hypertension 91460987 I10 Diabetic p eripheral neuropathy 330999203 E11.40 Coronary arteriosclerosis in [place] artery 7197248574 107 I25.10 Diabetic on insulin 1707 31670 Z79.4 Health edu cation given 057758816 Z71.9 [id number] CLEMENT Cedeno_SMG_C ARDIAC_90 [address] [id number] [place] [address] 11/17/2020 13:55:15 11/17/2020 15:52:27 Cardiac pacemaker in situ 876000009 Z95.0 Paroxysmal atrial fibrillation 389734953 I48.0 [id number] W MD ANGIE Henao_SMG_C ARDIAC_90 [address] [id number] [place] [address] 01/12/2021 09:53:06 01/12/2021 10:52:22 Deep venous thrombosis 711859084 I82.409 Ventricula r tachycardia 47120030 I47.2 Paroxysmal atrial fibrillation 356560169 I48.0 Cardiac pa cemaker in situ 553556856 Z95.0 Coronary arteriosclerosis 14018344 I25.10 History of coronary artery bypass grafting 707063604 Z95.1 Essential hypertension 77437059 I10 [id number] CLEMENT Azar_SMG_E NDO_[address] [place] [address] 01/25/2021 13:43:13 01/25/2021 14:04:35 Uncontrolled type 2 diabetes mellitus 354737304 E11.65 Dyslipidemia 078353774 E 78.5 Essential hypertension 05789868 I10 Diabetic p eripheral neuropathy 695611305 E11.40 Coronary arteriosclerosis in [place] artery 7186459217 107 I25.10 Diabetic on insulin 1707 50486 Z79.4 Health edu cation given 228122856 Z71.9 [id number] W MD ANGIE Henao_SMG_C ARDIAC_90 [address] [id number] [place] [address] 02/10/2021 09:58:50 02/10/2021 11:36:27 Deep venous thrombosis 578998021 I82.409 Ventricula r tachycardia 40416755 I47.2 Paroxysmal atrial fibrillation 644622455 I48.0 Cardiac pa cemaker in situ 933160631 Z95.0 Coronary arteriosclerosis 49189542 I25.10 History of coronary artery bypass grafting 288198772 Z95.1 Essential hypertension 61702716 I10 [id number] Bong Tucker Gracia Lai GRACEA_SMG_C ARDIAC_90 [address] [id number] [place] [address] 03/22/2021 14:51:13 03/22/2021 15:36:28 Cardiac pacemaker in situ 121372705 Z95.0 Syncope and collapse 309 695330 R55 Paroxysmal atrial fibrillation 938834298 I48.0 Ventricula r premature beats 12186618 I49.3 [id number] Shilpa Sheriff, CLEMENT EVA_SMG_E NDO_[address] [place] [address] 04/12/2021 14:53:29 04/12/2021 15:18:02 Uncontrolled type 2 diabetes mellitus 750871837 E11.65 Dyslipidemia 717039413 E 78.5 Essential hypertension 50491399 I10 Diabetic p eripheral neuropathy 685167909 E11.40 Coronary arteriosclerosis in [place] artery 5229332558 107 I25.10 Diabetic on insulin 1707 80883 Z79.4 [facility] edu cation given 719904824 Z71.9 [id number] W MD ANGIE Henao_SMG_C ARDIAC_90 [address] [id number] [place] [address] 08/09/2021 16:37:13 08/09/2021 17:16:24 Coronary arteriosclerosis 12520956 I25.10 History of coronary artery bypass grafting 026552321 Z95.1 Essential hypertension 30956088 I10 Hyperlipidemia 31693772 E78.2 Paroxysmal atrial fibrillation 643914879 I48.0 Cardiac pa cemaker in situ 719317935 Z95.0 Ventricula r tachycardia 69792309 I47.2 Deep venou s thrombosis 896378659 I82.409 [id number] Bong Gracia Cnc EVA_SMG_C ARDIAC_90 [address] eLiw[address] [place] [address] 09/29/2021 11:43:04 09/29/2021 12:41:12 Cardiac pacemaker in situ 324543472 Z95.0 Ventricula r premature beats 09972669 I49.3 Syncope and collapse 309 115580 R55 Paroxysmal atrial fibrillation 623692688 I48.0 [id number] Sabina Heath, HEAD TURNING MACHINE OPERATOR EVA_SMG_E NDO_[address] [place] [address] 02/15/2022 09:50:59 02/15/2022 10:25:34 Uncontrolled type 2 diabetes mellitus 045408533 E11.65 Dyslipidemia 659045396 E 78.5 Essential hypertension 88183746 I10 Diabetic p eripheral neuropathy 578718500 E11.40 Coronary arteriosclerosis in [place] artery 5289893062 107 I25.10 Diabetic on insulin 1707 60449 Z79.4 [id number] Bong Hoyt EVA_SMG_C ARDIAC_90 [address] qCjx[address] [place] [address] 04/12/2022 14:52:18 04/12/2022 17:06:01 Cardiac pacemaker in situ 858494594 Z95.0 Atrial fibrillation 4943 6004 I48.91 Nonsustain ed ventricular tachycardia 239781534 I47.20 Syncope 212211709 R55 Cerebrovas cular accident 261565814 I63.9 Ventricula r premature complex 284385482 I49.3 [id number] Bong Gracia [facility] EVA_SMG_C ARDIAC_90 1[facility] [id number] 9[address] [facility] [address] [place] [address] 07/12/2022 09:51:06 07/12/2022 10:57:39 Cardiac pacemaker in situ 876799589 Z95.0 Bradycardia 55019643 R00 .1 Syncope and collapse 309 969138 R55 Paroxysmal atrial fibrillation 575737842 I48.0 Ventricula r tachycardia 91377410 I47.20 Coronary atherosclerosis 239338677 I25.10 [id number] W MD ANGIE Henao_SMG_C ARDIAC_90 1[facility] iOhg263 [address] [place] [address] 08/10/2022 10:44:31 08/10/2022 11:02:35 Coronary arteriosclerosis 28521288 I25.10 History of coronary artery bypass grafting 503476761 Z95.1 Essential hypertension 35440101 I10 Hyperlipidemia 39836901 E78.5 Paroxysmal atrial fibrillation 287069203 I48.0 Cardiac pa cemaker in situ 729343950 Z95.0 Ventricula r premature beats 29943313 I49.3 Ventricula r tachycardia 71971732 I47.20 [id number] MD OSMAN RaySMG_E NDO_[address] [place] [address] 09/05/2022 16:10:02 09/05/2022 17:07:09 Uncontrolled type 2 diabetes mellitus 937985619 E11.65 Dyslipidemia 631889789 E 78.5 Essential hypertension 47072070 I10 Diabetic p eripheral neuropathy 241156624 E11.40 Coronary arteriosclerosis in [place] artery 2016214604 107 I25.10 Diabetic on insulin 1707 09614 Z79.4 [id number] Sherrill BREWERSMG_E NDO_[address] [place] [address] 09/07/2022 12:17:25 09/07/2022 12:22:10 Type 2 diabetes mellitus without complication 677729353 E11.9 [id number] Stefany Rosado NP EVA_SMG_E NDO_[address] [place] [address] 02/16/2023 10:47:56 02/16/2023 11:28:37 Uncontrolled type 2 diabetes mellitus 777849928 E11.65 Dyslipidemia 849782966 E 78.5 Essential hypertension 39897579 I10 Diabetic p eripheral neuropathy 685975091 E11.40 Coronary arteriosclerosis in [place] artery 3574623761 107 I25.10 Diabetic on insulin 1707 23229 Z79.4 Obesity 413615464 E66.9 [id number] W MD OSMAN HenaoSMG_C ARDIAC_90 1[facility] eMgx050 [address] [facility] [address] [place] [address] 02/17/2023 10:49:14 02/17/2023 11:42:59 Coronary arteriosclerosis 36394457 I25.10 History of coronary artery bypass grafting 639936379 Z95.1 Essential hypertension 59386477 I10 Hyperlipidemia 67590966 E78.5 Cardiac pa cemaker in situ 718637570 Z95.0 Paroxysmal atrial fibrillation 956419435 I48.0 Ventricula r tachycardia 86268054 I47.20 [id number] MD ANGIE Ray_SMG_E NDO_[address] [place] [address] 06/20/2023 15:22:14 06/20/2023 16:33:25 Uncontrolled type 2 diabetes mellitus 921147599 E11.65 Diabetic on insulin 1707 97409 Z79.4 Diabetic p eripheral neuropathy 153724511 E11.40 Dyslipidemia 159177468 E 78.5 Essential hypertension 52379665 I10 Coronary arteriosclerosis in [place] artery 5508335967 107 I25.10 Obesity 354181338 E66.9 [id number] Bong Hoyt EVA_SMG_C ARDIAC_90 1[facility] bHrw[address] [place] [address] 08/01/2023 14:45:36 08/01/2023 17:48:04 Paroxysmal atrial fibrillation 199924645 I48.0 No evidence of atrial arrhythmia s noted on her device check today Cardiac pa cemaker in situ 319973534 Z95.0 Permanent pacemaker implanted in 2020 this is programmed DDD at lower rate of 60 25% atrial pacing 7% ventricula r pacing we had of 11 years on her battery Bradycardia 52976645 R00 .1 Heart rate trends appear to be appropriat e based on pacemaker interrogat ion today she is on high-dose beta-block er therapy due to history of high PVC burden atrial fibrillati on Ventricula r premature complex 740987480 I49.3 PVCs are 6600 daily at 6% high-dose beta-block er therapy we will continue to monitor Anticoagulant therapy 18 7401864 Z79.01 Patient with a head MARIAN VASc Score of 5 with a history of CVA PE atrial fibrillati on she remains on anticoagul ation in the form of 20 mg daily with historical ly normal renal function she offers no bleeding issues Coronary atherosclerosis 684949504 I25.10 History of coronary artery disease followed by Dr. Espinal she offers no evidence of anginal symptoms today CABG in 2018 most recent cath in 2020 without interventi on most recent stress in 2022 negative for ischemia showing normal EF she denies any anginal symptoms today she follows Dr. Espinal she is due for updated lipid however in discussion will be establishe d with new cardiology and would await updated labs at that time but will discuss with Dr. Espinal at his her appointmen t next week [id number] W MD ANGIE Henao_YAHIR_Jesus ARDIAC_90 1[facility] mHwz629 [address] [place] [address] 09/19/2023 15:56:18 09/19/2023 17:06:09 Cardiac pacemaker in situ 733481292 Z95.0 Coronary arteriosclerosis 74837022 I25.10 Essential hypertension 24884842 I10 History of coronary artery bypass grafting 715280366 Z95.1 Hyperlipidemia 43370543 E78.5 Paroxysmal atrial fibrillation 061717562 I48.0 Ventricula r tachycardia 49933690 I47.20 Health Concerns Section Related Observation LastModified by Organization Detai ls LastModified Time None Recorded Concern Status LastModified by Organization Details LastModified Time None Recorded Advance Directives Directive N: Payers Encounter Date Sequence Insurance Name Policy Number Policy Shah Covered Member ID Shah Member ID Guarantor Name 02/16/2023 3 [place] [facility] Donna Romo [id number] Donna Romo 02/16/2023 2 [place]MEDICARE REPLACEMENT/AD VANTAGE - HMO) [facility] [id number] Donna Romo 02/17/2023 3 [place] [facility] Donna Romo [id number] Donna Tenoriowood 02/17/2023 2 [place] (MEDICARE REPLACEMENT/AD VANTAGE - HMO) [facility] Romo [id number] Donna Romo 06/20/2023 3 [place] [facility] Donna Romo [id number] Donna Tenoriowood 06/20/2023 2 [place] (MEDICARE REPLACEMENT/AD VANTAGE - HMO) [facility] Romo [id number] Donna Romo 08/01/2023 3 [place] [facility] - TRADITIONAL S Donna Romo [id number] Donna Tenoriowood 08/01/2023 2 [place] (MEDICARE REPLACEMENT/AD VANTAGE - HMO) [facility] Romo [id number] Donna Romo 09/19/2023 3 [place] [facility] Donna Romo [id number] Donna Romo 09/19/2023 2 [place] (MEDICARE REPLACEMENT/AD VANTAGE - HMO) [id number] Donna Romo [id number] Donna Romo Notes Date Note Type Note Provider Name and Address Organization Details Recorded Time 02/16/2023 text/html Donna comes in today for follow-up of type 2 diabetesHistory of diabetes since 2008Hemoglobin A1c 6.7% on 01/03/2023 Using Freestyle Naz 2 CGM, data downloaded and reviewedChecking blood sugars 4+ times [place] pyt86-ivp [place] [address]% in target, 27% high, 3% lowShe is having some hypoglycemia after dinner or overnight She reports taking Levemir 45 units BID and lispro insulin 30 units with meals + sliding scale QID as needed. Denies missing any doses. 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 Romo is a 67-year-old female. She has a history of coronary disease. She is status post 2-vessel coronary bypass surgery in August 2018, after presenting with unstable angina. She had 65% left main stenosis. She had a MULLEN to the LAD and vein graft to the OM. She has a history of permanent atrial fibrillation. Also, intraoperatively a left atrial appendage clip was placed, as well as pulmonary vein isolation with AtriCure radiofrequency clamps placed. She has a KXH3AD3-CYVl score of 5. We recommended to continue chronic anticoagulation, despite maintaining sinus rhythm. The EP service did drop down her amiodarone 200 mg once a day, 11/17/2020, echocardiogram identified a drop in her ejection fraction of 45-50%. The patient was not really very symptomatic, although an RODY inhibitor was added 5 mg to her regimen. She started to feel better. 12/18/2020 stress test due to drop in ejection fraction. She was found to have a small anteroapical ischemic defect. There was a fixed anterior wall defect, ejection fraction reported at 53%. January [address] [facility] after she had some problems with shortness of breath and some mild chest pain. She thought it was mostly some pulmonary congestion. They felt she had a non-Q wave myocardial infarction. She had a short run of nonsustained VT. Jan cathode maker, which showed Left main showed 50% stenosis, LAD 80% stenosis. The left circumflex was proximally occluded. The right coronary artery showed only mild luminal irregularities. MULLEN to the LAD was patent. Vein graft to the OM was widely patent. PCI was not indicated. The patient was discharged with ipratropium bromide inhalers. When seen on 08/09/21, she was doing very well. She has lost weight and went down from 211-198 after she developed a COVID infection. Fortunately, her infection was only mild and did not require any hospitalization. On 05/03/2022, echo showed EF 45-50%, left atrial enlargement, left ventricular diastolic dysfunction. Workup for sleep apnea was negative. LDL is 02/15/2022 was goal at 42. She remains compliant with her home meds. No changes were made. On 07/01/2022, EKG showed sinus rhythm, nonspecific ST-T changes with a heart rate of 90 beats per minute. The patient was seen in the ED at [facility] on January 03, 2023, because of abdominal pain and epigastric pain going up to her substernal area. She was ruled out for acute coronary syndrome. Lexiscan stress test showed no evidence of ischemia or infarct with ejection fraction at 69%. There was increased uptake of the inferior wall at rest with a TID of 1.19. The patient was seen by GI. HIDA scan was slightly abnormal. Workup for PE was also negative. The patient is being scheduled for an upper GI study at [facility] in the near future. She said her symptoms have resolved. She has not used any nitroglycerin. An echo was ordered, but has not been completed. Since the patient is feeling much better, we probably can wait for her next visit before the echo needs to be performed. Sandi Espinal MD [address] [place] [address], [address], [place], [address], [place] [facility] 02/21/2023 09:30:39 06/20/2023 text/html Donna comes in today for follow-up of type 2 diabetesHistory of diabetes since 2008Hemoglobin A1c 7.0% today Using Edmodostyle Naz 2 CGM, data downloaded and reviewedChecking blood sugars 4+ [place] pnb69-tzh [place] [address]% in target, 27% high, 0% lowNo hypoglycemia She reports taking Levemir 45 units BID and lispro insulin 30 units with meals + sliding scale QID as needed. Denies missing any doses. Has been trying to watch her diet No other concerns reported Complications of diabetes include diabetic neuropathy, CAD s/p CABGHistory of Parkinson's Stephanie Siddiqi MD [address] , [address], [place], [address], [place] - [place] [facility] [place] 06/20/2023 16:30:29 08/01/2023 text/html pt today followi ng up in our EP clinic she is known with a history of syncope with Reveal monitor showing evidence of bradycardia she now has permanent pacemaker with appropriate functioning. She was a history of coronary artery disorder [place] he should be seeing him next week she is moving to [facility] in the next few weeks and will be getting transferred over there she will let us know when she gets established for transfer of records currently today she is stable without concern Bogn Hoyt [address], [address], [place], [address], [place] - [facility] 08/01/2023 16:37:53 09/19/2023 text/html Ms. Romo is a 68-year-old female. She has a history of coronary disease. She is status post 2-vessel coronary bypass surgery in August 2018, after presenting with unstable angina. She had 65% left main stenosis. She had a MULLEN to the LAD and vein graft to the OM. She has a history of permanent atrial fibrillation. Also, intraoperatively a left atrial appendage clip was placed, as well as pulmonary vein isolation with AtriCure radiofrequency clamps placed. She has a [id number] score of 5. We recommended to continue chronic anticoagulation, while maintaining sinus rhythm. The EP service did drop down her amiodarone 200 mg once a day, 11/17/2020, echocardiogram identified a drop in her ejection fraction of 45-50%. The patient was not really very symptomatic, although an RODY inhibitor was added 5 mg to her regimen. She started to feel better. 12/18/2020 stress test due to drop in ejection fraction. She was found to have a small anteroapical ischemic defect. There was a fixed anterior wall defect, ejection fraction reported at 53%. January [address] [facility] after she had some problems with shortness of breath and some mild chest pain. She thought it was mostly some pulmonary congestion. They felt she had a non-Q wave myocardial infarction. She had a short run of nonsustained VT. Jan cathode maker, which showed Left main showed 50% stenosis, LAD 80% stenosis. The left circumflex was proximally occluded. The right coronary artery showed only mild luminal irregularities. MULLEN to the LAD was patent. Vein graft to the OM was widely patent. PCI was not indicated. The patient was discharged with ipratropium bromide inhalers. When seen on 08/09/21, she was doing very well. She has lost weight and went down from 211-198 after she developed a COVID infection. Fortunately, her infection was only mild and did not require any hospitalization. On 05/03/2022, echo showed EF 45-50%, left atrial enlargement, left ventricular diastolic dysfunction. Workup for sleep apnea was negative. LDL is 02/15/2022 was goal at 42. She remains compliant with her home meds. No changes were made. On 07/01/2022, EKG showed sinus rhythm, nonspecific ST-T changes with a heart rate of 90 beats per minute. The patient was seen in the ED at [facility] on January 03, 2023, because of abdominal pain and epigastric pain going up to her substernal area. She was ruled out for acute coronary syndrome. Lexiscan stress test showed no evidence of ischemia or infarct with ejection fraction at 69%. There was increased uptake of the inferior wall at rest with a TID of 1.19. The patient was seen by GI. HIDA scan was slightly abnormal. Workup for PE was also negative. The patient is being scheduled for an upper GI study at [facility] in the near future. She said her symptoms have resolved. She has not used any nitroglycerin. An echo was ordered, but has not been completed. Ms. Romo is here today for a six-month follow-up visit. She had an echo 08/09/2023 for a follow up that showed EF of 45-50% with RVSP of 23. Grade 2 diastolic dysfunction. Unchanged from her previous studies. She is now participating in a weight loss study at [facility]. She sees them once a month beginning since June and has lost 21 pounds going down from 216 down to 195. She denies any chest pain or angina. She has not used any nitroglycerin. She is remaining very active, especially with weight loss. Unfortunately, the patient did mention that she is moving to the [facility] in [place]. This will be her last visit as she is leaving at the end of this week. She will try to get established with a new precision lens polisher in that area. Sandi Espinal MD [address] [place] [address], [address], [place], [address], [place] [facility] 09/21/2023 07:18:57 OBGyn Episode No OBEpisode recorded.
--- OUTSIDE RECORDS SUMMARY | 2024-07-03 14:35 | XMS_ITS | CONTINUITY OF CARE DOCUMENT ---
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 Magdalene Sutton Palpitations active Loli Olson [employer] CAD (coronary artery disease) active Loli lOson [employer] Frequent PVC active Loli Olson [employer] COPD active Loli Olson [employer] Hyperlipidemia active Loli Olson [employer] Hypertension active Loli Olson NP Family Hx heart disease active Loli arguelles [employer] Hx of pulmonary embolism active Loli romeroi [employer] Pacemaker, permanent-medtronic active Loli Olson [employer] Paroxysmal atrial fibrillation active Loli Olson [employer] Anxiety active Loli Olson [employer] Depression active Loli Olson [employer] History of blood clots active Loli Buckley i [employer]IST[employer] CABG active Loli Olson NP ENCOUNTERS Date Type Provider Location Encounter Diag nosis 06/16 - 06/17 In-person encounter Office Visit Orville Amaya MD [facility] 02/12 - 02/12 In-person encounter Office Visit Orville Amaya MD [facility] 01/15 - 01/15 In-person encounter Office Visit Orville Amaya MD [facility] 01/01 - 01/02 In-person encounter Office Visit Orville Amaya MD [facility] PalpitationsCABGHistory of blood clotsDepressionAnxietyParoxysmal atrial fibrillationPacemaker, permanent-medtronicHx of pulmonary embolismFamily Hx heart diseaseHypertensionHyperlipidemiaCOPDFrequent PVCCAD (coronary artery disease) VITAL SIGNS Date Observation Value Provider Body Mass Index (Ratio) 35.90 kg/m2 William Amaya MD blood pressure, diastolic 61 mm[Hg] carybud Sellers blood pressure, systolic 100 mm[Hg] Whitney rosasbud Sellers oxygen saturation, oximetry 96 % Sarah Sellers respiratory rate E&M 12 /min Sarah Sellers pulse rate 71 /[facility] [lb_av[facility] height E&M 61 [in_i] [facility], cuff size regular An vinita Sellers Body Mass Index (Ratio) 35.90 kg/m2 Gen Dominguez blood pressure, cuff size regular Daniel cain Iyer blood pressure, diastolic 84 mm[Hg] Ta bitha Iyer blood pressure, systolic 118 mm[Hg] Tab itha Iyer weight E&M 190 [lb_av] Wendie Iyer pulse rate 70 /min Wendie Iyer oxygen saturation, oximetry 97 % Wendie Iyer respiratory rate E&M 12 /min Wendie Iyer height E&M 61 [in_i] Wendie Iyer Body Mass Index (Ratio) 36.46 kg/m2 William Amaya MD pulse rate 78 /min Wendie Iyer blood pressure, cuff size regular Daniel cain Iyer blood pressure, diastolic 78 mm[Hg] Daniel cain Iyer blood pressure, systolic 128 mm[Hg] Fidel guerra Iyer oxygen saturation, oximetry 96 % Wendie Iyer respiratory rate E&M 12 /min Wendie Iyer weight E&M 193 [lb_av] Wendie Iyer height E&M 61 [in_i] Wendie Seiling Body Mass Index (Ratio) 36.84 kg/m2 William Amaya MD blood pressure, diastolic 72 mm[Hg] [facility] blood pressure, systolic 136 mm[Hg] [facility] oxygen saturation, oximetry 97 % [facility] respiratory rate E&M 28 /min [facility] pulse rate 97 /min [facility] weight E&M 195 [lb_av] [facility] height E&M 61 [in_i] [facility] ALLERGIES Allergy Name Onset Date Reaction Criticality Status METFORMIN High Criticality active NUBAIN Rash High Criticality active PREDNISONE Rash High Criticality active SULFA Rash High Criticality active PENICILLIN Rash High Criticality active HISTORY OF MEDICATION USE Medication Status Instructions Dates Provider Indications Com ments Zetia 10 mg tablet active Take 1 tablet by mouth once a day Tracy Campos potassium chloride 20 mEq tablet extended release active TAKE 1 TABLET BY MOUTH EVERY DAY Bella Flores [employer] Lasix 20 mg tablet active Take 1 tablet by mouth once a day Bella Flores [employer] Otezla 30 mg tablet active TAKE 1 TABLET BY MOUTH TWICE DAILY Loli Olson NP Lantus Solostar U-100 Insulin 100 unit/mL (3 mL) insulin pen active INJECT 40 UNITS SUBCUTANEOUSLY TWICE DAILY Loli Olson NP albuterol sulfate 1.25 mg/3 mL solution for nebulization active USE 1 VIAL IN NEBULIZER EVERY 6 HOURS NEEDED FOR SHORTNESS OF BREATH Loli Olson NP Trintellix 20 mg tablet active 1 tablet by mouth once a day Loli Olson NP metoprolol tartrate 100 mg tablet active TAKE 1 TABLET BY MOUTH TWICE DAILY Loli Olson NP lorazepam 0.5 mg tablet active 1 tablet three times a day as directed Take 3 times daily as needed for anxiety Loli Olson NP lisinopril 5 mg tablet active Take 1 tablet by mouth once a day Loli Olson NP Nitrostat 0.4 mg tablet, sublingual active DISSOLVE 1 TABLET UNDER THE TONGUE EVERY 5 MINUTES, UP TO 3 DOSES NEEDED FOR CHEST PAIN Loli Olson NP isosorbide mononitrate 30 mg tablet extended release 24 hr active Take 1 tablet by mouth once daily Loli Olson NP atorvastatin 80 mg tablet active Take 1 tablet by mouth once a day Loli Olson NP Zetia 10 mg tablet completed TAKE 1 TABLET BY MOUTH EVERY DAY - Tracy Campos Xarelto 10 mg tablet active Take 1 tablet by mouth every evening Tracy Campos aspirin 81 mg tablet,delayed release (DR/EC) active Take 1 tablet by mouth once a day Loli Olson NP Levemir FlexPen 100 unit/mL (3 mL) insulin pen active Loli Olson NP SOCIAL HISTORY Date Observation Value Provider personal history of marijuana use no Orville Amaya MD drug use no Orville Schmidt alcohol use, average drinks per day 1 /d Orville Amaya MD alcohol use yes Orville Schmidt number of years as a smoker 30 a Orville Amaya MD smoking history, total pack/day 1.5 Orville Amaya MD cigarette use yes Orville Amaya MD smoking status Former smoker Orville matute MD personal history of marijuana use no Orville Amaya MD drug use no Orville Schmidt alcohol use, average drinks per day 1 /d Orville Amaya MD alcohol use yes Orville Schmidt number of years as a smoker 30 a Orville Amaya MD smoking history, total pack/day 1.5 Orville Amaya MD cigarette use yes Orville Amaya MD smoking status Former smoker Orville matute MD personal history of marijuana use no Loli Olson NP drug use no Loli Olson NP alcohol use, average drinks per day 1 /d Loli Olson NP alcohol use yes Loli Olson NP number of years as a smoker 30 a Loli Olson NP smoking history, total pack/day 1.5 Loli Olson NP cigarette use yes Loli Olson NP smoking status Former smoker Loli arguelles NP FUNCTIONAL STATUS Date Observation Value Provider HRA, CV Assess/Plan, Angina (inactive) Management Plan continue current therapy Bella Flores NP HRA, CV Assess/Plan, Angina (inactive) Management Plan continue current therapy Loli Olson NP INSURANCE PROVIDERS Payer name Policy type / Coverage type [place] [employer] party ID U[employer] GRP MEDICARE ADVANTAGE PLAN (PPO) Medicare [id number] ADVANCE DIRECTIVES Name Date DISCUSSED - NO DECISION MADE TREATMENT PLAN Date Name Performer Cardiology: 5 years ago in [place]. H er last cath showed that her grafts were patent. Bella Flores CLEMENT Cardiology: s /p PPM. Will have info transferred to our office. Bella Flores CLEMENT Cardiology: B P today: 100/61 P rior BP: 118/84 (02/13/2024) Bella Flores CLEMENT Cardiology: H er updated medication list for this problem includes: Atorvastatin 80 Mg Tablet (Atorvastatin) ..... Take 1 tablet by mouth once a day Zetia 10 Mg Tablet (Ezetimibe) ..... Take 1 tablet by mouth every day Bella Hyderenetta VAUGHAN Cardiology:Has not h ad any palpitations, and while in the hospital she was tole the monitor did not show any afib or PVCs, or VT. Bella Hyderenetta VAUGHAN Cardiology: C ath showed both grafts to be open. Mild CM with EF 45% Recent hospitalization with sob, but without chest pain, Bella Mariano Mark VAUGHAN Cardiology Orville Amaya MD Cardiology: s /p PPM. Will have info transferred to our office. Orville Amaya MD Cardiology: H er updated medication list for this problem includes: Atorvastatin 80 Mg Tablet (Atorvastatin) ..... Take 1 tablet by mouth once a day Zetia 10 Mg Tablet (Ezetimibe) ..... Take 1 tablet by mouth every day Orville Amaya MD Cardiology: B P today: 118/84 Her updated medication list for this problem includes: Metoprolol Tartrate 100 Mg Tablet (Metoprolol tartrate) ..... Take 1 tablet by mouth twice daily Lisinopril 5 Mg Tablet (Lisinopril) ..... Take 1 tablet by mouth once a day Aspirin 81 Mg Tablet,delayed Release (dr/ec) (Aspirin) ..... Take 1 tablet by mouth once a day Orville Amaya MD Cardiology:Cath show ed both grafts to be open. Mild CM with EF 45% L ast visit S till with SOB and now with abnormal stress test. Has nebulizer at home but not giving relief. Sleep study normal last year. Appears to be anginal equivalent. Will schedule Orville farooq MD Cardiology: H er updated medication list for this problem includes: Atorvastatin 80 Mg Tablet (Atorvastatin) ..... Take 1 tablet by mouth once a day Zetia 10 Mg Tablet (Ezetimibe) ..... Take 1 tablet by mouth every day Orville Amaya MD Cardiology: s /p PPM. Will have info transferred to our office. Orville Amaya MD Cardiology: B P today: 136/72 Her updated medication list for this problem includes: Metoprolol Tartrate 100 Mg Tablet (Metoprolol tartrate) ..... Take 1 tablet by mouth twice daily Lisinopril 5 Mg Tablet (Lisinopril) ..... Take 1 tablet by mouth once a day Aspirin 81 Mg Tablet,delayed Release (dr/ec) (Aspirin) ..... Take 1 tablet by mouth once a day Orville Amaya MD Cardiology:Still wit h SOB and now with abnormal stress test. Has nebulizer at home but not giving relief. Sleep study normal last year. Appears to be anginal equivalent. Will schedule Orville farooq MD Cardiology: s /p CABG R eports shortness of breath in association with palpitations as well shortness of breath with exertion. W ill obtain nuclear stress test to further assess her symptoms. Loli Olson NP Cardiology: R eports frequent palpitations. Arrythmias noted on recent echo. Will obtain nuclear stress test to assess. Loli Olson NP Cardiology: 5 years ago in [place]. W ill obtain records. Loli Olson NP Cardiology: H er updated medication list for this problem includes: Atorvastatin 80 Mg Tablet (Atorvastatin) ..... Take 1 tablet by mouth once a day Zetia 10 Mg Tablet (Ezetimibe) ..... Take 1 tablet by mouth every day Loli Olson NP Cardiology: B P today: 136/72 Her updated medication list for this problem includes: Metoprolol Tartrate 100 Mg Tablet (Metoprolol tartrate) ..... Take 1 tablet by mouth twice daily Lisinopril 5 Mg Tablet (Lisinopril) ..... Take 1 tablet by mouth once a day Aspirin 81 Mg Tablet,delayed Release (dr/ec) (Aspirin) ..... Take 1 tablet by mouth once a day Loli Olson NP Cardiology: s /p PPM. Will have info transferred to our office. Loli Olson NP Date Name PROTHROMBIN TIME WIT H INR LIPID PANEL CBC (INCLUDES DIFF/P LT) BASIC METABOLIC PANE L W/EGFR Stress Regadenoson HISTORY OF PROCEDURES Procedure Date Procedure Name Provider Procedure Notes S tatus Complex e/m visit add on Orville Amaya MD completed EKG Orville Amaya MD complete d
== END 2024-07-03 13:47 | disposition home or self-care (01) ==
LOC: CHSIMG 13:48
PROVIDERS: PCP Emergency Medicine; Visit Provider Emergency Medicine
DX: Z78.0 Asymptomatic menopausal state (principal); M85.89 Other specified disorders of bone density and structure, multiple sites
CPT/HCPCS: 77080

== ENCOUNTER 2024-07-10 10:04 | Outpatient (CLI) | payer MEDICARE, SELFPAY ==
--- NOTE | ~2024-07-10 | US_ITS ---
EXAMINATION: US art doppler w press LE BI DATE: 07/10/2024 10:58 INDICATION: Decreased lower extremity pulses TECHNIQUE: Segmental pressures and plethysmographic and Doppler waveforms of the brachial and lower e xtremity arteries were obtained. COMPARISON: None. FINDINGS: Right and left brachial artery pressures of 143 mm Hg and 149 mm Hg, respectively, are concordant (no rmal difference <= 30 mmHg). The right ankle-brachial index (JACQUELINE) is 1.23 (normal >= 0.9-1). The right great toe-brachial index (T BI) is 0.87 (normal >= 0.6-0.8). There are triphasic waveforms at the right common femoral artery, bi phasic wave forms of the right popliteal and dorsalis pedis artery and monophasic waveforms at the ri ght posterior tibial artery, each with brisk systolic upstrokes. The left JACQUELINE is 1.18. The left TBI is 0.93. Arterial waveforms are biphasic with brisk systolic upstr okes at the left common femoral, popliteal and posterior tibial arteries. No arterial flow identified in the region of the left dorsalis pedis artery. IMPRESSION: 1. No arterial flow identified in the region of the left dorsalis pedis artery which may be occluded. 2. Otherwise no significant arterial occlusive disease with normal bilateral ABIs and TBIs. Reviewed, dictated and finalized at location A. PROCESS [facility] MILLER IMPRESSION: 1. No arterial flow identified in the region of the left dorsalis pedis artery which may be occluded. 2. Otherwise no significant arterial occlusive disease with normal bilateral AB Is and TBIs.
--- OUTSIDE RECORDS SUMMARY | 2024-07-10 11:04 | XMS_ITS | Data Portability ---
Author Organization [facility] Address [address] [facility] [place] [address] Care Team Providers Care Lining Strap Closer Name Role Phone NAYANA WHITEHEAD Primary Care [...] DO Not Attach Compendium, Do Not Delete/merge, [id number] 04/29/2024 13:04:25 Referral ophthalm ologist referral 2023 [facility], [address], [place], [address], 05/10/2024 11:44:24 orthoped ic surgeon referral - history of complete tear of right rotator cuff, injectio n one year ago was helpful 2023 ESTEBAN Cotto MD, [address], [place], [address], 07/09/2024 16:34:24 Procedures None recorded . Surgeries None recorded . Imaging DEXA 2023 [facility] (Imaging), [address], [place], [address], 07/04/2024 10:45:49 US, doppler, arterial - could not get left pedal pulse 2023 [facility] ([facility]), [address], [place], [address], 07/10/2024 09:32:00 Medication Orders Trintell ix 20 mg tablet 2023 [facility], [address] [place] [address], [id number], 04/30/2024 18:59:25 Otezla 30 mg tablet 2023 [facility], [address] [place] [address], [id number], 04/30/2024 18:59:27 Patient TargetsNo targets recorded. Patient Instructions Encounter Date Encounter Id Patient Instructions Last Modified By Organization Details Last Modified Time 05/15/2024 [id number] type 2 diabetes: care instructions [email or web address] Not available 05/15/2024 15:28:30 No diabetic ocular comp. 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 Referral for Type 2 diabetes mellitus Referring Physician: Nayana Whitehead [facility], Encounter Date: 04/29/2024 Orthopedic Surgeon Referral for Rupture of rotator cuff of right shoulder history of complete tear of right rotator cuff, injection one year ago was helpful Referring Physician: Nayana Whitehead [facility], Encounter Date: 04/29/2024 Results Created Date Observation Date Name Description Value Unit Range Abnormal Flag Note LastModifiedBy Organization Detail LastModifiedTime 04/29/20 24 04/29/2024 HbA1c (hemo globi n A1c), blood HbA1c 7.6 Not Available In-Office Order Internal Use Only DO Not Attach Compendium DO Not Attach Compendium, Do Not Delete/merge, [id number] 04/29/2024 10:59:57 05/27/20 24 05/30/2024 URINE CULTU RE, ROUTI NE urine culture, routine FINAL REPORT abnormal Not Available [facility] [place] [place] [facility] [address] [facility], [place], [address], 05/30/2024 20:07:39 05/27/20 24 05/30/2024 URINE CULTU [...] Resis tant Organ ism Not Available [facility] [place] [place] [facility] [address] [facility], [place], [address], 05/30/2024 20:07:39 05/27/20 24 05/30/2024 URINE CULTU [...] thopr im/Bartholomew lfa R Not Available [facility] [place] [place] [facility] [address] [facility], [place], [address], 05/30/2024 20:07:39 05/27/20 24 05/27/2024 urina lysis , dipst ick Leukocytes Small Not Available In-Offi ce Order Internal Use Only DO Not Attach Compendium DO Not Attach Compendium, Do Not Delete/merge, [id number] 05/27/2024 12:53:53 05/27/20 24 05/27/2024 urina lysis , dipst ick Nitrite negati ve Not Available In-Office Order Internal Use Only DO Not Attach Compendium DO Not Attach Compendium, Do Not Delete/merge, [id number] 05/27/2024 12:53:53 05/27/20 24 05/27/2024 urina lysis , dipst ick Urobilinogen .2 Not Available In-Of fice Order Internal Use Only DO Not Attach Compendium DO Not Attach Compendium, Do Not Delete/merge, [id number] 05/27/2024 12:53:53 05/27/20 24 05/27/2024 urina lysis , dipst ick Protein Negati ve Not Available In-Office Order Internal Use Only DO Not Attach Compendium DO Not Attach Compendium, Do Not Delete/merge, [id number] 05/27/2024 12:53:53 05/27/20 24 05/27/2024 urina lysis , dipst ick pH 5.0 Not Available In-Office Order Internal Use Only DO Not Attach Compendium DO Not Attach Compendium, Do Not Delete/merge, [id number] 05/27/2024 12:53:53 05/27/20 24 05/27/2024 urina lysis , dipst ick Blood Small Not Available In-Office Order Internal Use Only DO Not Attach Compendium DO Not Attach Compendium, Do Not Delete/merge, [id number] 05/27/2024 12:53:53 05/27/20 24 05/27/2024 urina lysis , dipst ick Specific Prosser 1.030 Not Available In-Off ice Order Internal Use Only DO Not Attach Compendium DO Not Attach Compendium, Do Not Delete/merge, [id number] 05/27/2024 12:53:53 05/27/20 24 05/27/2024 urina lysis , dipst ick Ketone Negati ve Not Available In-Office Order Internal Use Only DO Not Attach Compendium DO Not Attach Compendium, Do Not Delete/merge, [id number] 05/27/2024 12:53:53 05/27/20 24 05/27/2024 urina lysis , dipst ick Bilirubin Negati ve Not Available In-Office Order Internal Use Only DO Not Attach Compendium DO Not Attach Compendium, Do Not Delete/merge, [id number] 05/27/2024 12:53:53 05/27/20 24 05/27/2024 urina lysis , dipst ick Glucose Negati ve Not Available In-Office Order Internal Use Only DO Not Attach Compendium DO Not Attach Compendium, Do Not Delete/merge, [id number] 05/27/2024 12:53:53 07/04/19 25 07/03/2024 DEXA No observ ation record ed. [facility] [address] [place], [address], 07/05/2024 14:52:44 Result Notes None recorded. Problems Name Problem SNOMED Code Status Onset Date Resolution Date Notes Provider Name and Address Organization Details Recorded Time Diabetes mellitus 40429809 Active 024 Kenya Rodas MA null, [facility] 09:39:21 Problem Notes None recorded. Procedures Surgical History Date Name Laterality Status Provider Name and Address Organization Details Recorded Time Heart Surgery completed Kenya Rodas MA [facility] 04/29/2024 09:45:29 excision of salivary gland completed Kenya Rodas MA [facility] 04/29/2024 09:46:20 Imaging Results Imaging Date Name Status LastModified by Organizatio n Details LastModified Time 07/03/2024 DEXA active [facility] [address] [place], [address], 07/05/2024 14:52:44 Procedure Notes None recorded. Medical Equipment None Reported. Allergies Allergen ID Allergen Name Allergen Category Reaction Reaction Severity Criticality Documentation Date Start Date Code Code System Note Provider Name and Address Organization Details Recorded Time 080491 prednison e medicatio n hives moderate Not available 04/29/2024 8640 RxNorm Not Available Not Available Not Available Product containin g penicilli n and antibioti c (product) medicatio n hives moderate Not available 04/29/2024 13159 05 SNOMED Not Available Not Available Not Available 195250 Substance with sulfonami de structure and antibacte rial mechanism of action (substanc e) medicatio n hives Not available Not available 04/29/2024 11060 8003 SNOMED Not Available Not Available Not Available 385146 Nubain medicatio n hives moderate Not available 04/29/2024 7550 RxNorm Not Available Not Available Not Available 217324 metformin medicatio n hives Not available Not available 04/29/2024 6809 RxNorm Not Available Not Available Not Available 027699 hydrocodo ne Not available hives severe Not available 04/29/2024 5489 RxNorm Not Available Not Available Not Available Medications Name Sig Start Date Stop Date Status Note LastModified by Organization Details LastModified Time furosemide 40 mg tablet TAKE 1 TABLET [...] Available tramadol 50 mg tablet TAKE 1 TABLET BY MOUTH EVERY 6 HOURS NEEDED FOR PAIN active Not Available Not Available No t Available cephalexin 500 mg capsule 04/29 completed [...] aspart 100 unit/mL (3 mL) subcutaneou s INJECT INSULIN 3 TIMES DAILY ACCORDING TO SLIDING SCALE. MAX DAILY DOSE 50 UNITS active Not Available Not Available No t Available nitrofurant oin monohydrate /macrocryst als 100 mg [...] Available No t Available FreeStyle Naz 2 Plus Sensor device CHANGE EVERY 15 DAYS active Not Available Not Available No t Available Vitals Date Recorded Body weight Body mass index (BMI) Body height Oxygen saturation Oxygen saturation in Arterial blood by Pulse oximetry Heart rate Body temperature Systolic blood pressure Diastolic blood pressure Provider Name and Address Organization Details Last Updated DateTime 4 49945.5 1 g 36.8 kg/m2 154.94 cm 96 % 96 % 84 /min 97.4 [degF] 122 mm[Hg] 80 mm[Hg] Kenya Rodas MA [facility] 4 09:53:00 Date Recorded Body height Body temperature Pain severity - 0-10 verbal numeric rating [Score] - Reported Body mass index (BMI) Body weight Heart rate Systolic blood pressure Diastolic blood pressure Provider Name and Address Organization Details Last Updated DateTime 4 154.94 cm 97.8 [degF] 0 37 kg/m2 22690.3 9 g 66 /min 142 mm[Hg] 66 mm[Hg] Junior Haile MA [facility] 4 14:30:43 Social History Question Answer Notes LastModified by Organizat ion Details LastModified Time Tobacco Smoking Status Former Smoker Kenya Rodas MA [facility] 04/29/2024 09:43:49 What Is Your Level Of [...] 09:48:23 Mother Heart disease [email or web address] Not available 11/25/ 2024 09:47:39 Mother Hypertensive disorder [email or web address] Not available [...] Eating Disorder N Anemia N Heart Attack (ID) Y Anxiety Disorder Y Diabetes Y Muscle, Joint, or Bone Problems Y Arthritis Y Seizures/Epilepsy N Have you had a colonoscopy in the last 1 0 years? Y Acid Reflux (GERD) N Cancer N Stroke N Asthma N Allergies Y Have you had a PSA blood test in the las t year? N ADHD N Substance Abuse N High Cholesterol Y Hepatitis N Liver Disease N Schizophrenia N Headaches N Heart Failure N Osteoporosis N Gynecological HistoryNo gynecological history recorded. Obstetrics History GPAL:G 0 P 0 0 0 0 Past Encounters Encounter ID Performer Location Encounter Start Date Encounter Closed Date Diagnosis/Indication Diagnosis SNOMED-CT Code Diagnosis ICD10 Code Diagnosis Note [id number] Nayana Whitehead [facility] [address] [place] [address] 04/29/2024 09:22:59 05/01/2024 09:32:19 Screening for osteoporosis 509897715 Z13.820 Due for screening DEXA. Absent pulse 06433118 R0 9.89 Difficulty getting right pedal pulse on exam, but able to get posterior tibial. Will check doppler study. Type 2 anton betes mellitus 42910518 E11.9 Diabetes has been fairly well controlled [...] Rupture of rotator cuff of right shoulder 2105072152 1021451 M75.101 Will refer to orthopedic surgeon to discuss treatment options and possibly to get an injection again. Dyspnea 690179799 R06.00 Will get records from recent hospitaliz ation. It sounds like this was due to CHF. I will confirm this and get more informatio n on her heart disease. Cardiac arrhythmia 27582 7007 I49.9 Patient was recently hospitaliz ed and she states she had atrial fibrillati on. She is in sinus rhythm at this time. I will get her hospital records to review. Coronary arteriosclerosis 31566709 I25.10 Has had bypass surgery and has a pacemaker. Seeing cardiologi st Dr. Hernandez. Screening for malignant neoplasm of colon 268158121 Z12.11 Believes she was told she needs colonoscop y every five years but not sure why. It has been over five years now. She was given Cologuard by previous provider which she has not done. Will get records and review. Psoriasis 7619013 L40.9 Well controlled with Otezla. 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 [id number] Nadege Miller MD [facility] [address] [place] [address] 05/15/2024 14:03:43 05/16/2024 07:34:24 Type 2 diabetes mellitus without complication 592810232 E11.9 Nuclear sc lerotic cataract 650345890 H25.13 [id number] Nayana Whitehead MD [facility] (Adult Med) [address] [place] [address] 05/27/2024 14:50:50 06/10/2024 16:34:57 Urinary symptoms 558559525 R39.9 Health Concerns Section Related Observation LastModified by Organization Detai ls LastModified Time None Recorded Concern Status LastModified by Organization Details LastModified Time None Recorded Advance Directives Directive None Recorded Payers Encounter Date Sequence Insurance Name Policy Number Policy Shah Covered Member ID Shah Member ID Guarantor Name 04/29/2024 1 [facility] (MEDICARE REPLACEMENT/A DVANTAGE - HMO) [id number] oDnna Romo [id number] Donna Romo 05/15/2024 1 [facility] (MEDICARE REPLACEMENT/A DVANTAGE - HMO) [id number] Donna Romo [id number] Donna Romo 05/27/2024 1 [facility] (MEDICARE REPLACEMENT/A DVANTAGE - HMO) [id number] Donna Tenoriowood [id number] Donna Romo Notes Date Note Type Note Provider Name and Address Organization Details Recorded Time 04/29/2024 text/html here to maria isabel russell, 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, [place], [address], [facility] 04/30/2024 18:59:48 05/15/2024 text/html DM needs eye exa m, No new comp. Nadege Miller MD [address] [place], [address], [facility] 05/15/2024 15:28:32 OBGyn Episode No OBEpisode recorded.
== END 2024-07-10 10:05 | disposition home or self-care (01) ==
PROVIDERS: PCP Emergency Medicine; Visit Provider Emergency Medicine
DX: R09.89 Other specified symptoms and signs involving the circulatory and respiratory systems (principal); Z13.820 Encounter for screening for osteoporosis
CPT/HCPCS: 93923

== ENCOUNTER 2025-03-07 15:05 | Outpatient (CLI) | payer MEDICARE, SELFPAY ==
--- OUTSIDE RECORDS SUMMARY | 2025-02-11 11:00 | XMS_ITS | Continuity of Care Document ---
Author Organization [facility] Address [address] [place] [address] Phone Care Team Providers Care House Officer Name Role Phone Monique REID, FACC, FSCAI, Orville Unavailable U navailable Allergies, Adverse Reactions, Alerts Substance Reaction Status Criticality NALBUPHINE HCL Rash(severe)Rash(severe) Active H igh prednisone Rash(severe)Rash(severe) Active Hig h Sulfa (Sulfonamide Antibiotics) Rash(severe)Rash(sever e) Active High PENICILLIN Rash(severe)Rash(severe) Active Hig h metformin Active High Medications Medication Instructions Dosage Effective Dates (start - stop) Status Comments Xarelto 10 mg tablet TAKE 1 TABLET BY [facility] ONCE DAILY IN THE EVENING - Active potassium chloride ER 20 mEq tablet,extended release - Active tizanidine 2 mg tablet - Act keyla lisinopril 5 mg tablet take 1 tablet by oral route every day 5 MG - Active insulin lispro (U-100) 100 unit/mL subcutaneous pen INJECT INSULIN 3 TIMES DAILY ACCORDING TO SLIDING SCALE(MAX DAILY DOSE 50 UNITS) - Active Lantus Solostar U-100 Insulin 100 unit/mL (3 mL) subcutaneous pen - Active Ozempic 0.25 mg or 0.5 mg (2 mg/3 mL) subcutaneous pen injector - Active pregabalin 75 mg capsule - Active FreeStyle Naz 3 Plus Sensor device CHANGE SENSOR EVERY 15 DAYS - Active furosemide 20 mg tablet - Ac tive Otezla 30 mg tablet - Active Trintellix 20 mg tablet - Ac tive metoprolol tartrate 100 mg tablet take 1 tablet by oral route 2 times every day with meals 100 MG - Active omeprazole 20 mg capsule,delayed release - Active atorvastatin 80 mg tablet TAKE 1 TABLET BY MOUTH ONCE DAILY - Active ezetimibe 10 mg tablet - Act keyla isosorbide mononitrate ER 30 mg tablet,extended release 24 hr - Active nitroglycerin 0.4 mg sublingual tablet DISSOLVE ONE TABLET UNDER THE TONGUE EVERY 5 MINUTES NEEDED FOR CHEST PAIN. DO NOT EXCEED A TOTAL OF 3 DOSES IN 15 MINUTES - Active FreeStyle Naz 3 Molt - Active Semglee (insulin glargine-yfgn) Pen 100 unit/mL (3 mL) subcutaneous INJECT 20 UNITS SUBCUTANEOUSLY AT BEDTIME - Active FreeStyle Naz 2 Plus Sensor device - Active ondansetron 8 mg disintegrating tablet DISSOLVE 1 TABLET IN MOUTH THREE TIMES DAILY NEEDED FOR NAUSEA - Active levofloxacin 750 mg tablet TAKE 1 TABLET BY MOUTH ONCE DAILY - Active metronidazole 500 mg tablet - Active Toupam SoloStar U-300 Insulin 300 unit/mL (1.5 mL) subcutaneous pen - Active tramadol 50 mg tablet - Acti ve albuterol sulfate HFA 90 mcg/actuation aerosol inhaler INHALE 1 TO 2 PUFFS BY MOUTH EVERY 4 HOURS NEEDED - Active nitrofurantoin monohydrate/macrocrysta ls 100 mg capsule TAKE 1 CAPSULE BY MOUTH TWICE DAILY - Active prednisone 10 mg tablet TAKE 1 TABLET BY MOUTH TWICE DAILY FOR 10 DAYS - Active ciprofloxacin 500 mg tablet TAKE 1 TABLET BY MOUTH ONCE DAILY - Active furosemide 40 mg tablet TAKE 1 TABLET BY MOUTH ONCE DAILY - Active Procedures Procedure Date OFFICE/OUTPATIENT VISIT, EST ELECTROCARDIOGRAM, COMPLETE PM/ICD REMOTE TECH SERV PM DEVICE INTERROGATE REMOTE Advance Directives Directive Yes / No Effective Date File Name No Information Encounters Encounter Description Practice Location Reason(s) For Visit Diagnoses Date Provider Providers Copied on Encounter OFFICE/OUTPA TIENT VISIT, EST [facility], [address] [place] [address], [id number] , tel: [phone] [facility] [place] follow up (chief complaint) CADAF - Paroxysmal atrial fibrillationCOPDBive ntricular cardiac pacemaker presentPalpitations 5 Ramadagiovani Jacinto. [address] [place], [place], [id number] , . tel: [phone] Referring Provider: Orville Amaya, [address], [place], [address] . tel:[phone] [facility] , [address] [place] [address], [id number] , tel: [phone] [facility] [place] No Information 5 Ramadan Orville. [address] [place], [place], [id number] , . tel: [phone] [facility], [address] [place] [address], [id number] , tel: [phone] [facility] [place] No Information 5 Ramadan Orville. [address], [place], [id number] , [place]. tel: [phone] [facility], [address] [place] [address], [id number] , tel: [phone] [facility] [place] Presence of cardiac pacemaker 5 Ramadan Orville. [address], [place], [id number] , . tel: [phone] Referring Provider: Orville Amaya, [address], [place], [address] . [facility]: [phone]: Orville Amaya, [address] [facility], [place], [address] . tel:[phone] [facility], [address] [place] [address], [id number] , [facility]: [phone] [facility] Information 5 Whitney Ennis. [address] [place] [address], [id number] , . tel: [phone] [facility], [address] [place] [address], [id number] , tel: [phone] [facility] [place] No Information 5 Monique Jacinto. [facility] [place], [place], [id number] , . tel: [phone] Family History Family Member Type Diagnosis Age At Onset No Information Payers Payer name Insurance type Covered green party ID Dana dickens(s) [facility] [employer] PLAN 2 HMO [facility] [id number] Social History Type Description Quantity Date Captured Comments Alcohol Use Details Unknown Caffeine Use Details Unknown Tobacco Use Status No Information Smoking Status No Information Sex Female Vital Signs Date / Time: Height Weight BMI Pulse Rate Blood Pressure Temperature Respiratory Rate Body Surface Area Head Circumference Head Circ. Percentile Wt./Blas. Percentile BMI percentile Pulse Ox Inhaled Ox 4:16 PM 61.00 in 85.275 kg (188.00 lbs) 35.5 2 kg/m eter (2) 92 /min 112/88 mm[Hg] 96 % Chief Complaint And Reason For Visit From encounter dated '02/11/2025 16:00'. follow up (chief complaint) Reason For Referral Reason For Referral No Information Plan Of Treatment Date Type Action Status Appointment Donna Romo BOOKED History Of Present Illness Encounter Date Complaint History Of Prese nt Illness follow up Functional Status Date Functional Assessmen t No Information Instructions Date Instruction Additional Infor mation No Information Assessments Type Assessment Date assessment CAD assessment AF - Paroxysmal atrial fibrillat ion assessment COPD assessment Biventricular cardiac pacemaker present assessment Palpitations Patient Care Teams Name Effective Dates (start - stop) Status Members No Information
--- NOTE | ~2025-03-07 | XR_ITS ---
EXAMINATION: XR chest 2V, 03/07/2025 15:19 CDT HISTORY: Acute cough COMPARISON: No comparisons available. Technique: 2 views obtained. Findings: The lungs are clear, no effusion. No pneumothorax. Mild cardiomegaly. Mediastinal and hilar contours are within normal limits. Poststernotomy. Left pacemaker. Impression: No acute cardiopulmonary abnormality. Reviewed, dictated and finalized at location P. Impression: No acute cardiopulmonary abnormality.
--- OUTSIDE RECORDS SUMMARY | 2025-03-07 15:10 | XMS_ITS | Encounter Summary ---
Author Organization [facility] tem Address [address] [place] [address] Care Team Providers Care Cloth Tearer Name Role Phone Henrietta Sigrid Roxana INSURANCE TERRITORY MANAGER Primary Care Provider [phone] Reason for Visit * Reason Onset Date Comments Medication Refill 01/26/2020 Encounter Details Date Type Department Care Team (Late st Contact Info) Description 01/26/2020 Pt Refill [address] [address] Juvenal Marroquin MD [address] [place] [address] Medication Refill Social History Tobacco Use Types Packs/Day Years Used Date Smoking Tobacco: Former Cigarettes 1 37.2 0 10/10/1976 - 12/23/2013 Smokeless Tobacco: Never Alcohol Use Standard Drinks/Week Comments Yes 1 (1 standard drink = 0.6 oz pur e alcohol) twice a month Alcohol Use Answer Date Recorded Frequency of Alcohol Consumption Not on file 07/15/2018 Average Number of Drinks Not on file 019 Frequency of Binge Drinking Not on file 07/06 Alcohol Use Status Not on file 07/15/2018 Average alcohol consumption .6 07/06 Comments No Sex and Gender Information Value Date Recorded Sex Assigned at Not on file Legal Sex Female 9:37 PM [employer] Gender Identity Not on file Sexual Orientation Not on file Occupation Industry Job Start Date Job End Date Not on file Not on file Not on file Not on file COVID-19 Exposure Response Date Recorded In the last month, have you been in contact with someone who was confirmed or suspected to have Coronavirus / COVID-19? No / Unsure 01/24/2020 10:01 AM CDT documented as of this encounter Functional Status * Are you deaf or do you have serious difficulty hearing? Answer Date of Assessment Author No 05/31/2018 10:17 AM Gaye Paredes RN * Are you blind or do you have serious difficulty seeing, even when wearing glasses? Answer Date of Assessment Author No 05/31/2018 10:17 AM Gaye Paredes RN * Do you have serious difficulty walking or climbing stairs? Answer Date of Assessment Author No 05/31/2018 10:17 AM Gaye Paredes RN * Do you have difficulty dressing or bathing? Answer Date of Assessment Author No 05/31/2018 10:17 AM Gaye Paredes RN * Because of a physical, mental, or emotional condition, do you have difficulty doing errands alone such as visiting a doctor's office or shopping? Answer Date of Assessment Author No 05/31/2018 10:17 AM Gaye Paredes RN documented as of this encounter Mental Status * Because of a physical, mental, or emotional condition, do you have serious difficulty concentrating, remembering, or making decisions? Answer Entry Date Author No 05/31/2018 10:17 AM Gaye Paredes RN documented in this encounter Miscellaneous Notes * Telephone Encounter - Kinjal Valencia RN - 01/27/2020 1:18 PM CDT Refill request for Oxy-APAP (Percocet) Last fill per inspect 01/20/2020 at [facility] for quantity 20. Last OV 01/20/2020 Next OV 03/25/2020 Last urine drug screen none Med Agreement No, does not have pain med contract on file Script pended and routed to Dr. Marroquin. documented in this encounter Plan of Treatment Not on file documented as of this encounter Visit Diagnoses Not on filedocumented in this encounter Additional Health Concerns Infection Onset Date Last Indicated Resolved Time COVID-19 Rule-Out 01/28/2021 01/28/2021 01/28/2021 6:19 AM CDT Assessment Noted Time PHQ-9 Depression Total Score: 15 019 1:22 PM CDT documented as of this encounter Care Teams Cloth Tearer Relationship Specialty Start Date End Date Sigrid Shrestha, INSURANCE TERRITORY MANAGER [address] [place] [address] PCP - General Nurse Practitioner 01/30/23 documented as of this encounter
--- OUTSIDE RECORDS SUMMARY | 2025-03-07 15:10 | XMS_ITS | Data Portability ---
Author Organization [facility] Address [address] [facility] [place] [address] Care Team Providers Care Etymology Professor Name Role Phone NAYANA WHITEHEAD Primary Care Provider [phone] Assessment Encounter Date Assessment Date Assessment LastModified by Organization Details LastModified Time 03/03/2025 03/03/2025 Has taken Phenergan with codeine before and tolerated it fine. [email or web address] Not available 03/03/2025 17:01:23 Plan of Treatment Reminders Order Date Submit Date Provider Last Modified By Organization Details Last Modified Time Details Appointments ANY 30 2025 11:30A M Nayana Whitehead MD Not available Not available Not available Lab influenza virus A + B + SARS-CoV- 2 (COVID19) Ag panel, rapid IA, upper respirato ry specimen 2024 025 [email or web address] In-Office Order, Internal Use Only DO Not Attach Compendium DO Not Attach Compendium, Do Not Delete/merge, [id number] 02/25/2025 09:47:13 urinalysi s, dipstick 2024 025 In-Office Order, Internal Use Only DO Not Attach Compendium DO Not Attach Compendium, Do Not Delete/merge, [id number] 11/18/2024 17:25:22 culture, urine 2024 025 [facility], [address], [address], [place], [address], 11/21/2024 17:10:37 Referral orthopedi c surgeon referral - chronic bilateral shoulder pain, right worse than left, MRI one year ago, rotator cuff tear, 2024 jane De Los Santos MD, [address] [facility] [address], [place], [address], 03/05/2025 12:07:29 Procedures None recorded. Surgeries None recorded. Imaging XR, cervical spine 2024 025 [facility] ([facility]), [address] [place], [address], 02/20/2025 10:49:29 XR, shoulder 2024 025 [facility] ([facility]), [address] [place], [address], 02/20/2025 10:49:13 Medication Orders levofloxa ryanne 500 mg tablet 2024 [facility], [address] [place] [address], [id number], 03/03/2025 18:25:20 promethaz ine 6.25 mg-codein e 10 mg/5 mL syrup 2024 025 [facility] [address], [address] [place] [address], [id number], 03/03/2025 18:25:19 Anoro Ellipta 62.5 mcg-25 mcg/actua tion powder for inhalatio n 2024 025 [facility] [address], [address] [place] [address], [id number], 03/03/2025 18:25:19 doxycycli ne hyclate 100 mg capsule 2024 025 [facility] [address], [address] [place] [address], [id number], 02/25/2025 09:47:20 Lyrica 75 mg capsule 2024 025 [facility], [address] [place] [address], [id number], 11/18/2024 15:43:43 Trintelli x 20 mg tablet 2024 025 [facility], [address] [place] [address], [id number], 11/18/2024 19:44:49 Otezla 30 mg tablet 2024 025 [facility], [address] [place] [address], [id number], 11/18/2024 19:44:45 atorvasta tin 80 mg tablet 2024 025 [facility], [address] [place] [address], [id number], 11/18/2024 19:44:46 ezetimibe 10 mg tablet 2024 025 [facility], [address] [place] [address], [id number], 11/18/2024 19:44:46 omeprazol e 20 mg capsule,d elayed release 2024 025 [facility], [address] [place] [address], [id number], 09/11/2024 11:14:00 ondansetr on 8 mg disintegr ating tablet 2024 025 [facility] [address], [address] [place] [address], [id number], 11/18/2024 20:02:55 levofloxa ryanne 750 mg tablet 2024 025 [facility], [address] [facility], [place], [address], 11/18/2024 20:02:50 metronida zole 500 mg tablet 2024 025 [facility], [address] [facility], [place], [address], 09/02/2024 16:59:23 Patient TargetsNo targets recorded. Patient Instructions Encounter Date Encounter Id Patient Instructions Last Modified By Organization Details Last Modified Time 09/11/2024 [id number] A healthy lifestyle: care instructions cameronemilia Not available 09/11/2024 11:13:20 Reason for Referral Orthopedic Surgeon Referral for Bilateral chronic pain of upper limbs chronic bilateral shoulder pain, right worse than left, MRI one year ago, rotator cuff tear, Referring Physician: Nayana Whitehead, Family Medicine, Encounter Date: 11/18/2024 Results Created Date Observation Date Name Description Value Unit Range Abnormal Flag Note LastModifiedBy Organization Detail LastModifiedTime 08/23/1908/22/2024 HbA1c (hemo globi n A1c), blood HbA1c 7.6% Not Available In-Office Order Internal Use Only DO Not Attach Compendium DO Not Attach Compendium, Do Not Delete/merge, [id number] 08/12/2024 15:35:54 08/30/19 25 08/30/2024 LIPID PANEL cholesterol, total 144 mg/dL 100-19 9 Not Available [facility] ([facility]) [address] [facility], [place], [address], 08/30/2024 08:29:25 08/30/19 25 08/30/2024 LIPID PANEL triglyceride s 169 mg/dL 0-149 above high normal Not Available [facility] ([facility]) [address] [facility], [place], [address], 08/30/2024 08:29:25 08/30/19 25 08/30/2024 LIPID PANEL HDL cholesterol 59 mg/dL >39 Not Available [facility] ([facility]) [address] [place], [address], 08/30/2024 08:29:25 08/30/19 25 08/30/2024 LIPID PANEL VLDL cholesterol margot 28 mg/dL 5-40 Not Available [facility] ([facility]) [address] [facility], [place], [address], 08/30/2024 08:29:25 08/30/19 25 08/30/2024 LIPID PANEL LDL chol calc ([facility]) 57 mg/dL 0-99 Not Available [facility] ([facility]) [address] [place], [address], 08/30/2024 08:29:25 11/19/19 25 11/21/2024 URINE CULTU RE, ROUTI NE urine culture, routine FINAL REPORT abnormal Not Available [facility] ([facility]) [address] [place], [address], 11/21/2024 17:10:37 11/19/19 25 11/21/2024 URINE CULTU RE, ROUTI NE result 1 ESCHER ICHIA COLI abnormal Cefaz sandra with an ELIS <=16 predi cts susce ptibi lity to the oral agent s cefac kami, cefdi heather, cefpo doxim e, cefpr ozil, cefur oxime , cepha lexin , and lorac arbef when used for thera py of uncom plica mathew urina ry tract infec tions due to E. coli, Klebs iella pneum oniae , and Prote us mirab ilis. 10,00 0-25, 000 colon y formi ng units per mL Not Available [facility] ([facility]) [address] [facility], [place], [address], 11/21/2024 17:10:37 11/19/19 25 11/21/2024 URINE CULTU RE, ROUTI NE antimicrobia l susceptibili ty COMMEN T S = Susce ptibl e; I = Inter media te; R = Resis tant P = Posit keyla; N = Negat keyla MICS are expre ssed in micro grams per mL Antib iotic RSLT# 1 RSLT# 2 RSLT# 3 RSLT# 4 Amoxi cilli n/Cla vulan ic Acid S Ampic illin S Cefaz sandra S Cefep kemal S Cefox itin S Cefpo doxim e S Ceftr iaxon e S Cipro floxa ryanne S Ertap enem S Genta micin S Levof loxac in S Merop enem S Nitro furan toin S Piper acill in/Ta zobac maurer S Tetra cycli ne S Tobra mycin S Trime thopr im/Bartholomew lfa S Not Available [facility] ([facility]) [address] [facility], [place], [address], 11/21/2024 17:10:37 11/19/1911/18/2024 urina lysis , dipst ick Leukocytes Small Not Available In-Offi ce Order Internal Use Only DO Not Attach Compendium DO Not Attach Compendium, Do Not Delete/merge, 11/18/2024 15:43:11/19/1911/18/2024 urina lysis , dipst ick Nitrite negati ve Not Available In-Office Order Internal Use Only DO Not Attach Compendium DO Not Attach Compendium, Do Not Delete/merge, 11/18/2024 15:43:06 11/19/1911/18/2024 urina lysis , dipst ick Urobilinogen .2 Not Available In-Of fice Order Internal Use Only DO Not Attach Compendium DO Not Attach Compendium, Do Not Delete/merge, 11/18/2024 15:43:06 11/19/1911/18/2024 urina lysis , dipst ick Protein 30 Not Available In-Office Order Internal Use Only DO Not Attach Compendium DO Not Attach Compendium, Do Not Delete/merge, 11/18/2024 15:43:11/19/1911/18/2024 urina lysis , dipst ick pH 5.5 Not Available In-Office Order Internal Use Only DO Not Attach Compendium DO Not Attach Compendium, Do Not Delete/merge, 11/18/2024 15:43:11/19/19 25 11/18/2024 urina lysis , dipst ick Blood Small Not Available In-Office Order Internal Use Only DO Not Attach Compendium DO Not Attach Compendium, Do Not Delete/merge, [facility] 11/18/2024 15:43:11/19/19 25 11/18/2024 urina lysis , dipst ick Specific [place] 1.030 Not Available In-Off ice Order Internal Use Only DO Not Attach Compendium DO Not Attach Compendium, Do Not Delete/merge, [facility] 11/18/2024 15:43:11/19/19 25 11/18/2024 urina lysis , dipst ick Ketone Negati ve Not Available In-Office Order Internal Use Only DO Not Attach Compendium DO Not Attach Compendium, Do Not Delete/merge, [facility] 11/18/2024 15:43:11/19/19 25 11/18/2024 urina lysis , dipst ick Bilirubin Negati ve Not Available In-Office Order Internal Use Only DO Not Attach Compendium DO Not Attach Compendium, Do Not Delete/merge, [facility] 11/18/2024 15:43:11/19/19 25 11/18/2024 urina lysis , dipst ick Glucose Negati ve Not Available In-Office Order Internal Use Only DO Not Attach Compendium DO Not Attach Compendium, Do Not Delete/merge, [facility] 11/18/2024 15:43:11/19/19 25 11/18/2024 urina lysis , dipst ick Appearance Clear Not Available In-Offi ce Order Internal Use Only DO Not Attach Compendium DO Not Attach Compendium, Do Not Delete/merge, [facility] 11/18/2024 15:43:11/19/19 25 11/18/2024 urina lysis , dipst ick Color Dark Yellow Not Available In-Office Order Internal Use Only DO Not Attach Compendium DO Not Attach Compendium, Do Not Delete/merge, [facility] 11/18/2024 15:43:06 02/09/20 25 02/09/2025 CBC w/ auto diff WBC 5.5 text: 3.4 - 10.8 x10e3/ uL Not Available Not Available 02/20/2025 10:43:36 02/09/20 25 02/09/2025 CBC w/ auto diff RBC 4.58 text: 3.77 - 5.28 x10e6/ uL Not Available Not Available 02/20/2025 10:43:36 02/09/20 25 02/09/2025 CBC w/ auto diff hemoglobin 12.9 g/dL low: 11.1g/ dLhigh : 15.9g/ dL Not Available Not Available 02/20/2025 10:43:36 02/09/2002/09/2025 CBC w/ auto diff hematocrit 41.1 % low: 34%hig h: 46.6% Not Available Not Available 02/20/2025 10:43:36 02/09/2002/09/2025 CBC w/ auto diff MCV 90 fL low: 79fLhi gh: 97fL Not Available Not Available 02/20/2025 10:43:36 02/09/20 25 02/09/2025 CBC w/ auto diff MCH 28.2 pg low: 26.6pg high: 33pg Not Available Not Available 02/20/2025 10:43:36 02/09/20 25 02/09/2025 CBC w/ auto diff MCHC 31.4 g/dL low: 31.5g/ dLhigh : 35.7g/ dL low Not Available Not Available 02/20/2025 10:43:36 02/09/2002/09/2025 CBC w/ auto diff RDW 13 % low: 11.7%h igh: 15.4% Not Available Not Available 02/20/2025 10:43:36 02/09/2002/09/2025 CBC w/ auto diff platelet count 175 text: 150 - 450 x10e3/ uL Not Available Not Available 02/20/2025 10:43:36 02/09/20 25 02/09/2025 CBC w/ auto diff granulocytes % 67 % text: not estab. Not Available Not Available 02/20/2025 10:43:36 02/09/20 25 02/09/2025 CBC w/ auto diff lymphocytes % 26 % text: not estab. Not Available Not Available 02/20/2025 10:43:36 02/09/2002/09/2025 CBC w/ auto diff monocytes % 6 % text: not estab. Not Available Not Available 02/20/2025 10:43:36 02/09/2002/09/2025 CBC w/ auto diff eosinophils % 0 % text: not estab. Not Available Not Available 02/20/2025 10:43:36 02/09/2002/09/2025 CBC w/ auto diff basophils % 1 % text: not estab. Not Available Not Available 02/20/2025 10:43:36 02/09/2002/09/2025 CBC w/ auto diff granulocytes absolute 3.7 text: 1.4 - 7.0 x10e3/ uL Not Available Not Available 02/20/2025 10:43:36 02/09/2002/09/2025 CBC w/ auto diff lymphocytes absolute 1.4 text: 0.7 - 3.1 x10e3/ uL Not Available Not Available 02/20/2025 10:43:36 02/09/2002/09/2025 CBC w/ auto diff monocytes absolute 0.3 text: 0.1 - 0.9 x10e3/ uL Not Available Not Available 02/20/2025 10:43:36 02/09/2002/09/2025 CBC w/ auto diff eosinophils absolute 0 text: 0.0 - 0.4 x10e3/ uL Not Available Not Available 02/20/2025 10:43:36 02/09/2002/09/2025 CBC w/ auto diff basophils absolute 0 text: 0.0 - 0.2 x10e3/ uL Not Available Not Available 02/20/2025 10:43:36 02/09/2002/09/2025 CBC w/ auto diff immature granulocytes 0 % text: not estab. Not Available Not Available 02/20/2025 10:43:36 02/09/2002/09/2025 CBC w/ auto diff immature granulocytes absolute 0 text: 0.0 - 0.1 x10e3/ uL Not Available Not Available 02/20/2025 10:43:36 02/09/20 25 02/09/2025 CBC w/ auto diff no coding or coding display name was found [facility] at: [facility] - [facility] [place] [phone] [facility] or: Jethro acosta PhD, Not Available Not Available 10:43:36 02/09/2002/09/2025 CBC w/ auto diff lab interpretati on Abnorm al Not Available Not Available 10:43:36 02/09/20 25 02/09/2025 CMP, serum or plasm a glucose, qn [mass/volume ], serum or plasma 124 mg/dL low: 70mg/d Lhigh: 99mg/d L high Not Available Not Available 02/20/2025 10:43:36 02/09/2002/09/2025 CMP, serum or plasm a BUN 16 mg/dL low: 8mg/dL high: 27mg/d L Not Available Not Available 02/20/2025 10:43:36 02/09/20 25 02/09/2025 CMP, serum or plasm a creatinine, serum or plasma 0.59 mg/dL low: 0.57mg /dLhig h: 1mg/dL Not Available Not Available 02/20/2025 10:43:36 02/09/20 25 02/09/2025 CMP, serum or plasm a glomerular filtration rate/1.73 sq M predicted, qn, creatinine based formula (CKD-epi), serum or plasma or blood 99 mL/mi n/1.7 3 low: 59mL/m in/1.7 3 Not Available Not Available 02/20/2025 10:43:36 02/09/2002/09/2025 CMP, serum or plasm a BUN/creatini ne ratio 27 low: 12high : 28 Not Available Not Available 02/20/2025 10:43:36 02/09/2002/09/2025 CMP, serum or plasm a sodium 142 mmol/ L low: 134mmo l/Lhig h: 144mmo l/L Not Available Not Available 02/20/2025 10:43:36 02/09/20 25 02/09/2025 CMP, serum or plasm a potassium 4.1 mmol/ L low: 3.5mmo l/Lhig h: 5.2mmo l/L Not Available Not Available 02/20/2025 10:43:36 02/09/2002/09/2025 CMP, serum or plasm a chloride 104 mmol/ L low: 96mmol /Lhigh : 106mmo l/L Not Available Not Available 02/20/2025 10:43:36 02/09/2002/09/2025 CMP, serum or plasm a CO2 25 mmol/ L low: 20mmol /Lhigh : 29mmol /L Not Available Not Available 02/20/2025 10:43:36 02/09/2002/09/2025 CMP, serum or plasm a calcium 8.8 mg/dL low: 8.7mg/ dLhigh : 10.3mg /dL Not Available Not Available 02/20/2025 10:43:36 02/09/2002/09/2025 CMP, serum or plasm a protein total 6.1 g/dL low: 6g/dLh igh: 8.5g/d L Not Available Not Available 02/20/2025 10:43:36 02/09/2002/09/2025 CMP, serum or plasm a albumin 4.1 g/dL low: 3.9g/d Lhigh: 4.9g/d L Not Available Not Available 02/20/2025 10:43:36 02/09/2002/09/2025 CMP, serum or plasm a globulin total 2 g/dL low: 1.5g/d Lhigh: 4.5g/d L Not Available Not Available 02/20/2025 10:43:36 02/09/2002/09/2025 CMP, serum or plasm a bilirubin total 0.5 mg/dL low: 0mg/dL high: 1.2mg/ dL Not Available Not Available 02/20/2025 10:43:36 02/09/2002/09/2025 CMP, serum or plasm a alkaline phosphatase 80 text: 44 - 121 IU/L Eff ectiv e Septe mb 2024 Alkal ine Phosp hatas e refer ence inter yue will be boggs ing to: Age Male Femal e 0 - 5 days 47 - 127 47 - 127 6 - 10 days 29 - 242 29 - 242 11 - 20 days 109 - 357 109 - 357 21 - 30 days 94 - 494 94 - 494 1 - 2 month s 149 - 539 149 - 539 3 - 6 month s 131 - 452 131 - 452 7 - 11 month s 117 - 401 117 - 401 12 month s - 6 years 158 - 369 158 - 369 7 - 12 years 150 - 409 150 - 409 13 years 156 - 435 78 - 227 14 years 114 - 375 64 - 161 15 years 88 - 279 56 - 134 16 years 74 - 207 51 - 121 17 years 63 - 161 47 - 113 18 - 20 years 51 - 125 42 - 106 21 - 50 years 47 - 123 41 - 116 51 - 80 years 49 - 135 51 - 125 >80 years 48 - 129 48 - 129 Not Available Not Available 02/20/2025 10:43:36 02/09/20 25 02/09/2025 CMP, serum or plasm a AST 17 text: 0 - 40 IU/L Not Available Not Available 02/20/2025 10:43:36 02/09/2002/09/2025 CMP, serum or plasm a ALT 29 text: 0 - 32 IU/L Not Available Not Available 02/20/2025 10:43:36 02/09/2002/09/2025 CMP, serum or plasm a no coding or coding display name was found [facility] at: [place] [phone] [facility] or: Jethro acosta PhD, Not Available Not Available 10:43:36 02/09/2002/09/2025 CMP, serum or plasm a lab interpretati on Abnorm al Not Available Not Available 10:43:36 02/09/2002/09/2025 lipid panel , serum cholesterol 141 mg/dL low: 100mg/ dLhigh : 199mg/ dL Not Available Not Available 02/20/2025 10:43:36 02/09/20 25 02/09/2025 lipid panel , serum triglyceride s 114 mg/dL low: 0mg/dL high: 149mg/ dL Not Available Not Available 02/20/2025 10:43:36 02/09/20 25 02/09/2025 lipid panel , serum HDL cholesterol 69 mg/dL low: 39mg/d L Not Available Not Available 02/20/2025 10:43:36 02/09/2002/09/2025 lipid panel , serum VLDL calculated 20 mg/dL low: 5mg/dL high: 40mg/d L Not Available Not Available 02/20/2025 10:43:36 02/09/2002/09/2025 lipid panel , serum LDL, calculated, serum (obs) 52 mg/dL low: 0mg/dL high: 99mg/d L Not Available Not Available 02/20/2025 10:43:36 02/09/2002/09/2025 lipid panel , serum no coding or coding display name was found [facility]: [facility] [phone] or: Jethro acosta PhD, Not Available Not Available 10:43:36 02/12/2002/11/2025 HbA1c (hemo globi n A1c), blood HbA1C (hemoglobin A1C), blood 6.6 % Not Available Not Available 02/20/2025 10:43:36 Result Notes None recorded. Problems Name Problem SNOMED Code Status Onset Date Resolution Date Notes Provider Name and Address Organization Details Recorded Time Diabetes mellitus [id number] Active 024 [place]E [place] [facility] Notes:Some problems listed i n Document: #[id number] could not be added to this patient's chart. Please review this document and add these problems to the patient's chart manually as needed. Problem Notes None recorded. Procedures Surgical History Date Name Laterality Status Provider Name and Address Organization Details Recorded Time Heart Surgery completed BARRIE Hammonds [facility] 04/29/2024 09:45:29 excision of salivary gland completed BARRIE Hammonds [facility] 04/29/2024 09:46:20 Imaging Results None recorded. Procedure Notes None recorded. Medical Equipment None Reported. Allergies Allergen ID Allergen Name Allergen Category Reaction Reaction Severity Criticality Documentation Date Start Date Code Code System Note Provider Name and Address Organization Details Recorded Time [id number] prednison e medicatio n hives moderate Not available 04/29/2024 8640 RxNorm BARRIE [place] [facility] 4 09:35:57 753810 Product containin g penicilli n (product) medicatio n hives moderate Not available 04/29/2024 73312 8001 SNOMED [place] BARRIE Rodas [facility], [facility] 4 09:36:18 971184 Substance with sulfonami de structure and antibacte rial mechanism of action (substanc e) medicatio n hives Not available Not available 04/29/2024 01797 8003 SNOMED Kenya Clark BARRIE stern, [facility] 4 09:36:35 078957 Nubain medicatio n hives moderate Not available 04/29/2024 7550 RxNorm Kenya Clark BARRIE leena, [facility] 4 09:36:57 900545 metformin medicatio n hives Not available Not available 04/29/2024 6809 RxNodat Rodas BARRIE stern, [facility] 4 09:37:12 656456 hydrocodo ne Not available hives severe Not available 04/29/2024 5489 RxNorm Kenya Rodas BARRIE leena, [facility] 4 09:37:42 Medications Name Sig Start Date Stop Date [...] No t Available prednisone 10 mg tablet 08/12 completed Not Available Not Available Not Available doxycycline hyclate 100 mg capsule TAKE 1 CAPSULE BY MOUTH TWICE DAILY WITH FOOD active Not Available Not Available No t Available tizanidine 2 mg tablet TAKE 1 TABLET BY MOUTH ONCE DAILY AT BEDTIME NEEDED active Not Available Not Available No t Available cetirizine 10 mg tablet TAKE 1 TABLET BY MOUTH ONCE DAILY active Not Available Not Available No t Available metoprolol tartrate 100 mg tablet TAKE 1 TABLET [...] completed Not Available Not Available Not Available promethazin e 6.25 mg-codeine 10 mg/5 mL syrup 5 ml qid prn cough 2024 active Not Available Not Available Not Avai lable metronidazo le 500 mg tablet TAKE 1 TABLET BY MOUTH THREE TIMES DAILY active Not Available Not Available No t Available ciprofloxac in 250 mg tablet 04/29 completed Not Available Not Available Not Available ciprofloxac in 500 mg tablet TAKE 1 TABLET BY MOUTH ONCE DAILY 04/29 completed Not Available Not Available Not Available tramadol 50 mg tablet TAKE 1 TABLET BY MOUTH THREE TIMES DAILY NEEDED FOR PAIN 11/18 completed Not Available Not Available Not Available ondansetron 8 mg disintegrat ing tablet DISSOLVE 1 TABLET IN MOUTH THREE TIMES DAILY NEEDED FOR NAUSEA 11/18 completed Not Available Not Available Not Available [...] Not Available Not Available No t Available omeprazole 20 mg capsule,del ayed release Take 1 capsule by mouth once daily active Not Available Not Available No t Available lisinopril 5 mg tablet TAKE 1 TABLET BY MOUTH ONCE DAILY active Not Available Not Available No t Available furosemide 20 mg tablet TAKE 1 TABLET BY MOUTH ONCE DAILY active Not Available Not Available No t Available levofloxaci n 500 mg tablet one tab po q d 2024 active Not Available Not Available Not Avai lable levofloxaci n 750 mg tablet TAKE 1 TABLET BY MOUTH ONCE DAILY 11/18 completed Not Available Not Available Not Available albuterol sulfate HFA 90 mcg/actuati on aerosol inhaler INHALE 1 TO 2 PUFFS BY MOUTH EVERY 4 HOURS NEEDED active Not Available Not Available No t Available fluticasone propionate 50 mcg/actuati on nasal spray,suspe nsion USE 1 SPRAY(S) IN EACH NOSTRIL ONCE DAILY AT NIGHT AT BEDTIME active Not Available Not Available No t Available insulin lispro (U-100) 100 unit/mL subcutaneou s pen INJECT INSULIN 3 TIMES DAILY ACCORDING TO SLIDING SCALE(MAX DAILY DOSE 50 UNITS) active Not Available Not Available No t Available Asprin Ec Low Dose 81 mg tablet,steffen yed release Take 1 tablet every day by oral route. active Not Available Not Available No t Available ezetimibe 10 mg tablet TAKE 1 TABLET BY MOUTH ONCE DAILY active Not Available Not Available No t Available Novolog FlexPen U-100 Insulin aspart 100 unit/mL (3 mL) subcutaneou s Use 3 times daily according to sliding scale. Max dose 50 units per day 07/12 completed Not Available Not Available Not Available nitrofurant oin monohydrate /macrocryst als 100 mg capsule TAKE 1 CAPSULE BY MOUTH TWICE DAILY 11/18 completed Not Available Not Available Not Available pregabalin 75 mg capsule TAKE 1 CAPSULE BY MOUTH TWICE DAILY active Not Available Not Available No t Available Lantus Solostar U-100 Insulin 100 unit/mL (3 mL) subcutaneou s pen INJECT 20 UNITS SUBCUTANE OUSLY AT BEDTIME active Not Available Not Available No t Available Xarelto 10 mg tablet TAKE 1 TABLET BY MOUTH ONCE DAILY IN THE EVENING 03/03 completed Not Available Not Available Not Available Xarelto 20 mg tablet Take 1 tablet every day by oral route. active Not Available Not Available No t Available potassium chloride ER 20 mEq tablet,exte nded release TAKE 1 TABLET BY MOUTH ONCE DAILY active Not Available Not Available No t Available Anoro Ellipta 62.5 mcg-25 mcg/actuati on powder for inhalation one puff q d 2024 active Not Available Not Available Not Avai lable Otezla 30 mg tablet TAKE 1 TABLET BY MOUTH TWICE DAILY active Not Available Not Available No t Available Jardiance 25 mg tablet TAKE 1 TABLET BY MOUTH ONCE DAILY 04/29 completed Not Available Not Available Not Available Toujeo SoloStar U-300 Insulin 300 unit/mL (1.5 mL) subcutaneou s pen INJECT 30 UNITS SUBCUTANE OUSLY EVERY DAY AT BEDTIME active Not Available Not Available No t Available Trintellix 20 mg tablet TAKE 1 TABLET BY MOUTH ONCE DAILY active Not Available Not Available No t Available FreeStyle Naz 2 Sensor kit USE DIRECTED 4 TIMES DAILY active Not Available Not Available No t Available Semglee (insulin glargine-yf gn) Pen 100 unit/mL (3 mL) subcutaneou s INJECT 20 UNITS SUBCUTANE OUSLY AT BEDTIME active Not Available Not Available No t Available Ozempic 0.25 mg or 0.5 mg (2 mg/3 mL) subcutaneou s pen injector INJECT 0.25 MG DUBCUTANE OUSLY EVERY 7 DAYS ( ONCE A WEEK ) active Not Available Not Available No t Available FreeStyle Naz 3 Max USE TO CONTINUOU SLY MONITOR BLOOD GLUCOSE active Not Available Not Available No t Available FreeStyle Naz 3 Plus Sensor device CHANGE SENSOR EVERY 15 DAYS active Not Available Not Available No t Available Vitals Date Recorded Body height Body mass index (BMI) Body weight Oxygen saturation Oxygen saturation in Arterial blood by Pulse oximetry Heart rate Body temperature Systolic And Diastolic Provider Name and Address Organization Details Last Updated DateTime 5 154.94 cm 37.4 kg/m2 78090.2 9 g 98 % 98 % 78 /min 98.1 [degF] 124/78 mm[Hg] Kenya Rodas [facility] 5 16:27:08 Date Recorded Body height Body mass index (BMI) Body weight Oxygen saturation Oxygen saturation in Arterial blood by Pulse oximetry Heart rate Body temperature Systolic And Diastolic Provider Name and Address Organization Details Last Updated DateTime 5 154.94 cm 37.2 kg/m2 41111.7 g 97 % 97 % 71 /min 98.1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
--- OUTSIDE RECORDS SUMMARY | 2025-03-07 15:10 | XMS_ITS | Clinical Summary ---
Author Organization [facility] Address [address] [place] [id number] Care Team Providers Care Pump Assembler Name Role Phone Sigrid Shrestha FERN PICKER Primary Care Provider [phone] Allergies Active Allergy Reactions Criticality Noted Date Comments Azithromycin Rash 01/10/2023 Hydrocodone-Acetaminoph en Nausea And Vomiting 08/31/2009 Lortab Nausea And Vomiting 08/31/2009 Metformin Nausea And Vomiting 02/07/2014 Nausea and vomiting Apap-Fd&C Blue #1-Hydrocodone Nausea And Vomiting 08/31/2009 Nalbuphine Hcl Rash 05/13/2010 Penicillins Hives 05/13/2010 Prednisone Hives,Rash 05/13/2010 blisters Sulfa Antibiotics Hives,Rash 08/31/2009 Sumatriptan Itching 03/08/2023 Medications * This document contains information received from the source organization and may not represent a complete record from that organization. Cholecalciferol (VITAMIN D) 1000 units TABS Take 1 tablet (1,000 Units) by mouth daily Active JARDIANCE 25 MG tabletIndications: Diabetes mellitus type 2 in obese Take 1 tablet (25 mg) by mouth daily 3 09/29/19 19 Active aspirin 81 MG EC tablet Take 1 tablet (81 mg) by mouth daily Active rivaROXABAN (XARELTO) 20 MG tablet Take 1 tablet (20 mg) by mouth daily Active FREESTYLE LANCETS MISC USE DIRECTED 4 TIMES DAILY 05/07/20 19 Active FREESTYLE LITE strip USE 1 STRIP TO CHECK GLUCOSE 4 TIMES DAILY 05/12/20 19 Active BD PEN NEEDLE KATE U/F 32G X 4 MM MISC USE 1 TO INJECT INSULIN 4 TIMES DAILY 05/12/20 19 Active Continuous Blood Gluc Sensor (FREESTYLE ROBEL 14 DAY SENSOR) [facility] Follow instructions provided by your physician 01/12/20 20 Active ezetimibe (ZETIA) 10 MG tablet Take 1 tablet (10 mg) by mouth daily 01/05/20 20 Active insulin detemir (LEVEMIR) SOPN Pen Inject 75 Units into the skin 2 times daily Active atorvaSTATin (LIPITOR) 80 MG tablet Take 1 tablet (80 mg) by mouth daily 07/19/19 21 Active isosorbide mononitrate (IMDUR) 30 MG CR tablet Take 1 tablet (30 mg) by mouth every morning 12/25/19 21 Active nitroGLYCERIN (NITROSTAT) 0.[address] 1 tablet (0.4 mg) under the tongue every 5 minutes as needed Active Continuous Blood Gluc Sheet Metal Welder (FREESTYLE ROBEL 2 READER) CANDI USE TO TEST BLOOD SUGAR 4 TIMES DAILY 09/08/19 23 Active ondansetron (ZOFRAN ODT) 4 MG disintegrating tablet Take 1 tablet (4 mg) by mouth every 8 (eight) hours if needed Active lisinopril (ZESTRIL) 5 MG tablet 01/05/20 23 Active insulin Lispro, 1 Unit Dial, (HUMALOG KWIKPEN) 100 UNIT/ML SOPN pen INJECT 30 UNITS SUBCUTANEOUSLY WITH BREAKFAST, 30 UNITS WITH LUNCH, AND 20 UNITS WITH DINNER PLUS SLIDING SCALE WITH MEALS AND BEDTIME SNACK. MAX DAILY DOSE IS 120 UNITS. 02/21/20 23 Active LORazepam (ATIVAN) 0.5 MG tablet Take 1 tablet (0.5 mg) by mouth 2 times daily as needed Active metoprolol tartrate (LOPRESSOR) 100 MG tablet 05/08/20 23 Active Multiple Vitamins-Minerals (EMERGEN-C BLUE PO) TAKE 1 TABLET BY MOUTH EVERY OTHER DAY Active albuterol 108 (90 Base) MCG/ACT inhaler INHALE 1 TO 2 PUFFS BY MOUTH EVERY 4 HOURS NEEDED Active OTEZLA 30 MG tablet Take 1 tablet (30 mg) by mouth 1 (one) time each day 08/15/19 24 Active rimegepant (NURTEC) [address] 1 tablet (75 mg) under the tongue as needed Active traMADol (ULTRAM) 50 MG tablet TAKE 1 TO 2 TABLETS BY MOUTH EVERY 6 HOURS NEEDED FOR PAIN . DO NOT EXCEED 5 PER 24 HOURS Active tiZANidine (ZANAFLEX) 2 MG tablet TAKE 1 TABLET BY MOUTH EVERY 8 HOURS FOR 14 DAYS Active Active Problems Problem Noted Date Diagnosed Date Moderate COPD (chronic obstructive pulmonary dis ease) 05/02/2023 Hereditary chin tremor 01/10/2023 Upper airway resistance syndrome 01/10/2023 Chronic migraine without aur a without status migrainosus, not intractable 01/10/2023 Iron deficiency anemia 01/10/2023 Chest pain, unspecified type 01/02/2023 Weakness of lower extremity 02/02/2022 Tremor 02/02/2022 Parkinsonism 09/13/2021 RLS (restless legs syndrome) 09/13/2021 Fatigue 09/13/2021 Insomnia 09/13/2021 Iron deficiency 09/13/2021 Sleep disorder breathing 09/13/2021 NSTEMI (non-ST elevated myocardial infarction) 0 01/28/2021 Cervical radiculopathy 09/08/2020 3 Neuropathy 06/07/2019 Obesity 05/25/2019 Lower abdominal pain 05/25/2019 Diverticulitis 05/25/2019 Nausea 05/25/2019 Deep venous thrombosis 03/26/2019 Pulmonary embolism 03/26/2019 Ventricular premature beats 03/26/2019 Ventricular tachycardia 03/26/2019 Moderate episode of recurrent major depressive d isorder 02/25/2019 Anxiety disorder 02/25/2019 Status post double vessel coronary artery bypass 09/11/2018 Arteriosclerosis of arterial coronary artery byp ass graft 09/06/2018 Coronary arteriosclerosis 08/30/2018 Bradycardia 06/13/2016 Cardiac pacemaker in situ 06/13/2016 Morbid obesity with BMI of 40.0-44.9, adult 12/2014 Diabetic polyneuropathy asso ciated with type 2 diabetes mellitus 12/09/2014 IBS (irritable bowel syndrome) 06/20/2014 Seasonal affective disorder 04/04/2014 Cervicalgia 03/19/2014 Low back pain 03/19/2014 COPD (chronic obstructive pulmonary disease) Hyperlipidemia, mixed 10/10/2013 Essential hypertension 10/10/2013 Psoriasis 10/10/2013 History of pulmonary embolism 10/10/2013 History of DVT (deep vein thrombosis) 10/10/2013 Overview (10/10/2013): She has a history of frequent DVT including in the arms and has a brother who has had clots Mood disorder 10/10/2013 Overview (10/10/2013): Has been on medications since 1986. Also has SAD Vitamin B12 deficiency 10/10/2013 Overview (10/10/2013): Unknown if she has a diagnosis of pernicious anemia History of cardiac pacemaker 10/10/2013 History of atrial fibrillation 10/10/2013 Overview (10/10/2013): [facility] History of ventricular tachycardia 10/10/2013 Overview (10/10/2013): Followed by [facility] Fatty liver 10/10/2013 Diabetes mellitus type 2 in obese 10/10/2013 Arthralgia 10/10/2013 Diverticulosis 10/10/2013 Carotid artery occlusion 04/16/2013 Paroxysmal atrial fibrillation 08/31/2009 Excessive anticoagulation 06/26/2008 Palpitations 06/26/2008 Syncope and collapse 06/26/2008 Chest pain 06/26/2008 Resolved Problems Problem Noted Date Diagnosed Date Resolved Date Neck mass 05/23/2018 06/29/2023 Annual physical exam 12/09/2014 07 015 Carbuncle 04/04/2014 12/09/2014 Lumbar back sprain 02/07/2014 5 UTI (lower urinary tract infection) 11/18/2013 12/17/2013 Overview (07/31/2015): IMO clean-up Tobacco abuse 10/10/2013 03/19/2014 Overview (03/19/2014): She has stopped Tobacco dependence syndrome 03/05/2009 01/20/2020 Immunizations Immunization Administration Dates Next Due Covid-19 28 Day Interval Moderna 08/19/2020,08/03,07/13/2020 Hepatitis A, Adult 11/15/2013 Hepatitis B, Adult/Adol 11/15/2013,11/16/1991 Influenza Quadrivalent, Preservative Free 2019,03/22/2019 Influenza Split Virus 03/19/2014 Influenza Split Virus Preservative Free 05/31/20 18 Influenza, Quadrivalent 04/24/2015 Pneumococcal Polysaccharide PPV23 12/09/2014 TD (Adult), Adsorbed 02/06/1992 Family History Medical History Relation Name Comments Heart Disease Brother 1 Al Heart Disease Brother 2 Zeke Stroke Brother 2 Zeke Alzheimer's Disease Father Hearing Loss Father Heart Disease Father High Blood Pressure Father High Cholesterol Father Other (See Comments) Father Arthritis Mother Juani Heart Disease Mother Juani High Blood Pressure Mother Juani High Cholesterol Mother Juani Thyroid Disease Mother Juani Arthritis Sister Dolores Diabetes Sister Dolores Heart Disease Sister Dolores High Blood Pressure Sister Dolores High Cholesterol Sister Dolores Anesth Problems Neg Hx Angina before 55 Neg Hx CABG before 55 Neg Hx Cancer Neg Hx OR before 55 Neg Hx PCI before 55 Neg Hx Sudden before 55 without obvious cause Neg Hx Relation Name Status Comments Brother 1 Al Alive Brother 2 Zeke Alive Daughter Alive Father Mother Juani Sister Dolores Alive Son Alive Social History Tobacco Use Types Packs/Day Years Used Date Smoking Tobacco: Former Cigarettes 1 37.2 0 10/10/1976 - 12/23/2013 Passive Smoke Exposure: Past Smokeless Tobacco: Never Tobacco Cessation:Counseling Given: Yes Alcohol Use Standard Drinks/Week Comments Yes 1 (1 standard drink = 0.6 oz pur e alcohol) twice a month PHQ-2 Answer Date Recorded PHQ-2 Score 0 06/29/2023 Housing Stability Vital Sign Answer Wade e Recorded In the last 12 months, was t here a time when you were not able to pay the mortgage or rent on time? Yes 01/04/2023 In the last 12 months, how many places have you lived? 1 01/04/2023 In the last 12 months, was t here a time when you did not have a steady place to sleep or slept in a senior living (including now)? 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 Gender Identity Not on file Sexual Orientation Not on file Occupation Industry Job Start Date Job End Date Not on file Not on file Not on file Not on file Last Filed Vital Signs Vital Sign Reading Time Taken Comments Blood Pressure 112/78 09/11/2023 2:51 PM CDT Pulse 85 09/11/2023 2:51 PM CDT Temperature 36.8 C (98.2 F) 07/12/2023 1:09 PM GUIDE DOG MOBILITY INSTRUCTOR Respiratory Rate 18 07/12/2023 1:09 PM GUIDE DOG MOBILITY INSTRUCTOR Oxygen Saturation 97% 09/11/2023 2:51 PM CDT Inhaled Oxygen Concentration - - Weight 87.1 kg (192 lb) 09/11/2023 2:51 PM CDT Height 154.9 cm (5' 1) 09/11/2023 2:51 PM CDT Body Mass Index 36.28 09/11/2023 2:51 PM CDT Plan of Treatment Health Maintenance Due Date Last Done Comments Zoster Vaccine (Recombinant Vaccine) (1 of 2) 2007 HEPATITIS B VACCINES (3 of 3 - 19+ 3-dose series) 01/10/2014 11/15/2013, 11/16/1991 Pneumococcal Vaccine: 50 and over (2 of 2 - PCV) 12/10/2015 12/09/2014 RSV Vaccines (1 - Risk 60-74 years 1-dose series) 2017 Medicare Annual Wellness (AWV) 03/26/2020 03/26/2019 Colon Cancer Screening 02/25/2021 6, 08/03/2012 (Done/Outside Provider) Diabetic Eye Exam 01/25/2022 01/25/2021, (Done/Outside Provider), 03/28/2014 LIPID TESTING 01/29/2022 01/29/2021, 09/06/2019, 08/27/2015, Additional history exists URINARY MICROALBUMIN IN DIABETES 04/12/2022 04/12/2021, 02/04/2020, 12/04/2014, Additional history exists DEXA SCAN SCREENING 2022 ADULT TETANUS 02/11/2023 02/11/2013 (Done /Outside Provider), 02/06/1992 Diabetes follow-up every 6 months by HEMOGLOBIN A1C 07/06/2023 01/03/2023, 09/13/2021, 01/28/2021, Additional history exists DIABETIC FOOT EXAM 01/31/2024 01/30/2023, 0 01/30/2023, 04/12/2021, Additional history exists DEPRESSION SCREENING 06/29/2024 06/29/2023, 06/16/2023, 05/22/2023, Additional history exists Fall Risk Assessment 09/10/2024 09/11/2023, 08/16/2023, 07/27/2023, Additional history exists BREAST CANCER SCREENING 01/01/2025 01/02/20 24, 08/26/2022, 08/23/2021, Additional history exists Influenza Vaccine 01/03/2025 04/07/2020, , 05/31/2018, Additional history exists COVID-19 Immunization ( season) 2025 08/19/2020, 08/13/2020, 07/13/2020 CRC: FOBT (fecal occult blood) Discontinued 12/09/2014 Hepatitis C Screening ages 18 to 79 once Completed 02/04/2020 HEPATITIS A VACCINES Aged Out No long er eligible based on patient's age to complete this topic HIB VACCINES Aged Out No longer eligi ble based on patient's age to complete this topic HPV VACCINES Aged Out No longer eligi ble based on patient's age to complete this topic IPV VACCINES Aged Out No longer eligi ble based on patient's age to complete this topic MENINGOCOCCAL VACCINE Aged Out No mitali shaka eligible based on patient's age to complete this topic Meningococcal B Vaccine Aged Out No l onger eligible based on patient's age to complete this topic ROTAVIRUS VACCINES Aged Out No longer eligible based on patient's age to complete this topic Goals Goal Patient Goal Type Associated Problems Recent Progress Patient-Stated? Author Weight (lb) < 9 lb 6 oz (4.3 kg) Weight 192 lb (87.1 kg)(09/11/2023 2:51 PM CDT) No Varsha Fonseca RD LD Note: Initial Height: 61 Initial Weight: 202 Weight loss goals 5 lbs: 197 lbs/10 lbs: 192 lbs/15 lbs: 187 lbs/20 lbs: 182 lbs Procedures Procedure Name Priority Date/Time Associated Diagnosis Comments DIABETES FOOT EXAM Routine 01/30/2023 Diabetes mellitus type 2 in obese HEMOGLOBIN A1C Routine 01/03/2023 4:48 AM CDT MAMMO SCREENING BILATERAL - DIGITAL W KOKO Routine 08/26/2022 12:51 PM CDT Encounter for screening mammogram for malignant neoplasm of breast LIPID PROFILE STAT 01/29/2021 2:31 AM CDT DIABETES EYE EXAM Routine 01/25/2021 Diabetic polyneuropathy associated with type 2 diabetes mellitus (HCC) HEPATITIS C ANTIBODY Routine 02/04/2020 11:00 AM CDT Encounter for hepatitis C screening test for low risk patient MICROALBUMIN, RANDOM URINE Routine 02/04/2020 11:00 AM CDT Type 2 diabetes mellitus with diabetic nephropathy, with long-term current use of insulin (HCC) POCT OCCULT BLOOD STOOL (SARAH) Routine 12/09/2014 Special screening for malignant neoplasms, unspecified intestine from Last 3 Months or Most Recently Relevant to Health Maintenance Results * DIABETES FOOT EXAM (01/30/2023) Diabetic Foot Exam Status Normal Normal Sigrid Shrestha NP HEALTH MAINTENANCE Final Result * (ABNORMAL) HEMOGLOBIN A1C (01/03/2023 4:48 AM CDT) Hemoglobin A1C 6.7(H) 4.0 - 5.6 % [facility] Estimated Average Glucose 146(H) 68 - 114 MG/DL [facility] 01/03/2023 4:48 AM CDT 01/03/2023 4:55 AM CDT us Denita Wick MD CHEMISTRY ORDERABLES Final Result [facility] [address] [place], [place] [address] [phone] * MAMMO SCREENING BILATERAL - DIGITAL W KOKO (08/26/2022 12:51 PM CDT) Anatomical Region Laterality Modality Breast Bilateral Mammography Impressions 08/26/2022 3:50 PM CDT AND RECOMMENDATIONS: There is no mammographic evidence of malignancy. Return to Annual Screening is recommended for both breasts. ACR BI-RADS CATEGORY 1 - NEGATIVE Narrative 08/26/2022 3:50 PM CDT COMPARISON: Comparison is made to prior studies. EXAM: MAMMO SCREENING BILATERAL - DIGITAL W KOKO VIEWS: Bilateral: Craniocaudal, Mediolateral oblique BREAST DENSITY: The breasts have scattered areas of fibroglandular density. FINDINGS: There are no suspicious masses, calcifications or areas of architectural distortion. This exam was reviewed with the aid of CAD R2 DMV 8.7 Shakila Mendoza NP [facility] MAMMO ORDERABLES Final Result * LIPID PROFILE (01/29/2021 2:31 AM CDT) Cholesterol 69 <200 MG/DL [facility] Triglycerides 133 0 - 149 MG/DL [facility] HDL 41 >40 MG/DL [facility] LDL Cholesterol 1 <130 MG/DL [facility] LDL/HDL Ratio 0.03 [facility] VLDL, Calc 27 5 - 40 MG/DL [facility] LDL, High Risk RELATIVE RISK MALE FEMALE 1/2 AVERAGE 1.00 1.47 AVERAGE 3.55 3.22 2X AVERAGE 6.25 5.03 3X AVERAGE 7.99 6.14 AN AVERAGE RISK RATIO INFERS A 10% LIKELIHOOD OF SIGNIFICANT CAD BY AGE 60. OTHER RISK FACTORS SUCH GLUCOSE INTOLERANCE, SMOKING HISTORY, HYPERTENSION AND OBESITY WILL FURTHER MODIFY THE RELATIVE RISK RATIO. [facility] Blood 01/29/2021 2:31 AM CDT 01/29/2021 3:09 AM CDT us Annie MUHAMMAD CHEMISTRY ORDERABLES Inna l Result Performing Organization Address [facility]/ZIP Co de Phone Number [facility] [address] [phone] * HM DIABETES EYE EXAM (01/25/2021) Dilated Eye Exam Status Normal Normal Comment:negative for diabet ic retinopathy, negative for macular edema. scanned into media Shakila Mendoza NP HEALTH MAINTENANCE Final Result * MICROALBUMIN, RANDOM URINE (02/04/2020 11:00 AM CDT) Microalbumin Urine <1.2 MG/DL [facility] Comment:NO NORMAL RANGE Creatinine Urine 62 MG/DL [facility] Comment:NO NORMAL RANGE Microalbumin/Crea tinine Ratio <19 <30 MG/G [facility] 02/04/2020 11:0 0 AM CDT 02/04/2020 1:57 PM CDT Shakila Mendoza NP URINE ORDERABLES Final Result Performing Organization Address [facility] Co de Phone Number [facility] [address] [place] [address] * HEPATITIS C ANTIBODY (02/04/2020 11:00 AM CDT) Hepatitis C IgG Antibody NONREACTIVE (NEG) [facility] Hep C IgG Comment SEE NOTES [facility] Comment: THIS ASSAY HAS NOT BEEN FDA CLEARED OR APPROVED FOR THE SCREENING OF BLOOD OR PLASMA DONORS. TEST PERFORMED USING [employer] Blood 02/04/2020 11:0 0 AM CDT 02/04/2020 2:00 PM CDT Shakila Mendoza NP IMMUNOLOGY ORDERABLES Final Res ult [facility] [address] [place] [address], [facility] [phone] * POCT OCCULT BLOOD STOOL (12/09/2014) Occult Blood, Stool #1 Negative Pos Control, Occult Blood + Neg Control, Occult Blood - Stool 12/09/2014 Kimberley Dasilva MD POINT OF CARE TEST ORDERABLES Final Result from Last 3 Months or Most Recently Relevant to Health Maintenance Insurance MEDICARE [facility] MEDICARE [employer] MEDICARE [employer] MEDICARE [employer] MED[employer] MEDICARE [employer] MEDICARE Member Subscriber Plan / Payer (Ef fective 2019-Present) Name:Donna Romo Relation to Subscriber:Self Name:Donna Romo Payer ID:[id number] (NAIC) Group ID:[id number] Type:CONTRACTED Address: [address] [place] [phone] [employer] MEDIC[employer] Advance Directives * Full Code (Latest Code Status on File) Date Activated Date Inactivated Comments 01/02/2023 11:32 PM 01/08/2023 1:26 PM * Full Code Date Activated Date Inactivated Comments 01/28/2021 12:15 PM 01/29/2021 3:00 PM * Full Code Date Activated Date Inactivated Comments 05/30/2018 4:20 PM 05/31/2018 1:24 PM Care Teams Pump Assembler Relationship Specialty Start Date End Date Sigrid Shrestha, CLEMENT [address] [phone] PCP - General Nurse Practitioner 01/30/23
--- OUTSIDE RECORDS SUMMARY | 2025-03-07 15:11 | XMS_ITS | Clinical Summary ---
Author Organization [facility] Address [address] [facility] [place] [address] Care Team Providers Care Pollution Control Engineer Name Role Phone Nayana Laura MD Primary Care Provider [phone] Source Comments [facility] Affiliates and Associated Physician Practices is amultiple site organization consisting of ambulatory clinics and hospital sitesin [place], [place], [place] and [place]. This disclosure is being madepursuant to the Care Everywhere program and may not contain all information available regarding this patient. Last updated 18.[facility] Allergies Active Allergy Reactions Criticality Noted Date Comments Azithromycin Rash Medium 01/10/2023 Hydrocodone-Acetaminophe n Nausea and/or Vomiting 08/31/2009 Lortab Nausea and/or Vomiting 08/31/2009 Metformin Diarrhea,Nausea and/or Vomiting 02/07/2014 Nausea and vomiting Nalbuphine Rash Medium 08/31/2009 Penicillins Urticaria,Rash,Skin Reactions Medium 08/31/2009 Prednisone Urticaria,Rash,Skin Reactions Medium 08/31/2009 blisters Sulfa Antibiotics Urticaria,Rash,Skin Reactions Medium 08/31/2009 Sulfacetamide Rash Medium 01/02/2024 Sumatriptan Itching 03/08/2023 Medications * Be aware that medications may not be up to date on this document. Alwaysverify current medications with the patient. albuterol (Accuneb) 1.25 MG/3ML nebulizer solution USE 1 VIAL IN NEBULIZER EVERY 6 HOURS NEEDED FOR SHORTNESS OF BREATH Active Apremilast (Otezla) 30 MG Take 1 (one) tablet by mouth 2 times daily Active aspirin EC (Ecotrin) 81 MG tablet Take 1 (one) tablet by mouth once daily Active atorvastatin (Lipitor) 80 MG tablet Take 1 (one) tablet by mouth once daily 10/30/19 24 Active ezetimibe (Zetia) 10 MG tablet TAKE 1 TABLET BY MOUTH ONCE DAILY DIRECTED Active BD Pen Needle Shauna 2nd Gen 32G X 4 MM MISC USE 1 TO INJECT INSULIN SIX TIMES DAILY 04/30/20 23 Active isosorbide mononitrate CR 24hr (Imdur) 30 MG tablet Take 1 (one) tablet by mouth once daily Active lisinopril (Prinivil; Zestril) 5 MG tablet Take 1 (one) tablet by mouth once daily 01/05/20 23 Active LORazepam (Ativan) 0.5 MG tablet Take 1 (one) tablet by mouth 2 times daily as needed Active metoprolol tartrate IR (Lopressor) 100 MG tablet Take 1 (one) tablet by mouth 2 times daily 05/08/20 23 Active nitroGLYCERIN (Nitrostat) 0.4 MG tablet DISSOLVE [...] mouth once daily Active Trintellix 20 MG tabletIndicatio ns:Moderate episode of recurrent major depressive disorder (HCC) Take 1 (one) tablet by mouth once daily 90 tablet 1 02/23/20 24 Active blood glucose (FREESTYLE LITE STRIPS) test strip USE 1 STRIP TO CHECK GLUCOSE 4 TIMES DAILY Active FreeStyle Lancets MISC USE DIRECTED 4 TIMES DAILY Active albuterol HFA (Proventil; Ventolin; Proair) 108 (90 Base) MCG/ACT inhalerIndicati ons:Moderate COPD (chronic obstructive pulmonary disease) (HCC) INHALE 1 TO 2 PUFFS BY MOUTH EVERY 4 HOURS NEEDED 18 g 06/10/19 25 Active Lasix 20 MG tablet Lasix 20 mg tablet A ctive insulin lispro (HumaLOG;ADMelo g) 100 UNIT/ML pen INJECT INSULIN 3 TIMES DAILY ACCORDING TO SLIDING SCALE(MAX DAILY DOSE 50 UNITS) 10/11/19 25 Active omeprazole (PriLOSEC) 20 MG capsule Take 1 (one) capsule by mouth once daily 10/11/19 25 Active potassium chloride ER (K-TAB) 20 MEQ tablet potassium chloride 20 mEq tablet extended release 08/08/19 25 Active Continuous Glucose Sensor (FreeStyle Naz 3 Plus Sensor) MISCIndications :Type 2 diabetes mellitus with other specified complication, with long-term current use of insulin (HCC) Use 1 Each every 15 days 6 Each 3 10/23/19 25 Active Continuous Glucose Supervisor Powdered Sugar (FreeStyle Naz 3 [place]) DEVIIndications :Type 2 diabetes mellitus with other specified complication, with long-term current use of insulin (HCC) Use 1 Each continuous 1 Each 10/23/19 25 Active tiZANidine (Zanaflex) 2 MG tablet TAKE 1 TABLET BY MOUTH ONCE DAILY AT BEDTIME NEEDED 01/30/20 25 Active Semaglutide(0.2 5 or 0.5MG/DOS) 2 MG/3ML Solution Pen-injector (Ozempic (0.25 or 0.5 MG/DOSE))Indica tions:Type 2 diabetes mellitus with other specified complication, with long-term current use of insulin (HCC) Inject 0.5 mg subcutaneously every 7 days (once a week) 6 mL 02/11/20 25 Active traMADol (Ultram) 50 MG tablet Take 1 (one) tablet by mouth 3 times daily as needed For pain. 08/13/19 025 Discontin ued(Clini margot Decision) insulin glargine (Lantus/Semglee ) 100 units/mL pen Inject 20 (twenty) Units subcutaneously at bedtime 30 mL 11/22/19 25 025 Discontin ued(Clini margot Decision) Semaglutide(0.2 5 or 0.5MG/DOS) 2 MG/3ML Solution Pen-injector (Ozempic (0.25 or 0.5 MG/DOSE))Indica tions:Type 2 diabetes mellitus with other specified complication, with long-term current use of insulin (HCC) Inject 0.25 mg subcutaneously every 7 days (once a week) 6 mL 01/15/20 25 025 Discontin ued(Reord er) Semglee, yfgn, pen Inject 20 (twenty) Units subcutaneously at bedtime 10/22/19 025 Discontin ued(Clini margot Decision) Active Problems Problem Noted Date Diagnosed Date Diabetes mellitus 10/21/2024 Hx of CABG 10/21/2024 Pacemaker 10/21/2024 Other chronic pulmonary embo lism without acute cor pulmonale 03/26/2024 Atherosclerosis of [place] co ronary artery of [place] heart with angina pectoris 03/26/2024 Moderate COPD (chronic obstructive pulmonary dis ease) 02/23/2024 Moderate episode of recurrent major depressive d isorder 02/23/2024 Morbid obesity with BMI of 40.0-44.9, adult 02/04 Encounters Date Type Department Care Team Description 02/10/2025 1:40 PM CDT Office Visit [facility] - Endocrinology [address] [place] [phone] Yasmin Gama MD Type 2 diabetes mellitus with other specified complication, with long-term current use of insulin (HCC) (Primary Dx); Hx of CABG 02/10/2025 Travel 01/13/2025 Telephone [facility] - Endocrinology [address] [place] [phone] Heather Landon, RN Med Question 01/13/2025 Refill [facility] - Endocrinology [address] [place] [phone] Yasmin Gama MD MEDICATION REFILL 01/10/2025 Refill [facility] - Endocrinology [address] [place] [phone] Yasmin Gama MD MEDICATION REFILL 01/10/2025 Refill [facility] - Endocrinology [address] [place] [phone] Yasmin Gama MD MEDICATION REFILL from Last 3 Months Immunizations Immunization Administration Dates Next Due INFLUENZA VACCINE, TRIV. [...] Recorded Patient Health Questionnaire-2 Score 2 03/26/2024 Comments No Sex and Gender Information Value Date Recorded Sex Assigned at Not on file Legal Sex Female 11:02 AM CDT Gender Identity Not on file Sexual Orientation Not on file Last Filed Vital Signs Vital Sign Reading Time Taken Comments Blood Pressure 119/75 02/10/2025 1:44 PM CDT Pulse 81 02/10/2025 1:44 PM CDT Temperature 36.9 C (98.5 F) 03/26/2024 2:30 PM CDT Respiratory Rate 18 03/26/2024 2:30 PM CDT Oxygen Saturation 96% 02/10/2025 1:44 PM CDT Inhaled Oxygen Concentration - - Weight 85.3 kg (188 lb) 02/10/2025 1:44 PM CDT Height 154.9 cm (5' 1) 03/26/2024 2:30 PM CDT Body Mass Index 35.52 03/26/2024 2:30 PM CDT Plan of Treatment Upcoming Encounters Date Type Department Care Team (Late st Contact Info) Description 07/22/2025 3:00 PM MAKEUP SALES ADVISOR Office Visit [facility] - Endocrinology [address] [place] [address], [place] [phone] Yasmin Gama MD [address] [place] [address] [address] [place] [phone] Health Maintenance Due Date Last Done Comments BONE DENSITY TESTING 1955 COLOGUARD (AGES 45-75) - COLON CA SCREENING 1957 COLON MONITORING 1957 COLONOSCOPY - COLON CA SCREENING 1957 CT COLONOGRAPHY - COLON CA SCREENING 1955 Colorectal Cancer Screening 1955 FIT - COLON CA SCREENING 1957 FLEX SIG - COLON CA SCREENING 1957 DTAP/TDAP/TD VACCINES (1 - Tdap) 02/07/1992 02/06/1992 HEPATITIS B VACCINE (3 of 3 - 19+ 3-dose series) 01/10/2014 11/15/2013, 11/16/1991 PNEUMOCOCCAL VACCINE 50+ (2 of 2 - PCV) 12/10/2015 12/09/2014 Respiratory Syncytial Virus (RSV) Vaccine Pt: or over 60 yrs (1 - Risk 60-74 years 1-dose series) 2017 DEPRESSION SCREENING 06/05/2024 02/23/2024 DIABETES - URINE PROTEIN SCREENING 06/05/2024 02/23/2024, 02/04/2020 MEDICARE AWV CALENDAR YEAR 2024 03/26/2024 DIABETES RETINOPATHY SCREENING 10/21/2024 DIABETES-FOOT EXAM WITH MONOFILAMENT 10/21/2024 COVID-19 VACCINE (3 - 2024- season) 2025 08/19/2020, 07/13/2020 INFLUENZA VACCINE (#1) 2025 , 03/22/2019, 05/31/2018, Additional history exists DIABETES-HGB A1C 08/11/2025 02/11/2025, , 01/03/2023, Additional history exists MAMMOGRAM 01/01/2026 01/02/2024, 08/04, 08/23/2021, Additional history exists DIABETES-SERUM CREATININE 02/08/20262024, 01/29/2021, 01/29/2021, Additional history exists HEPATITIS C SCREENING Completed 02/04/2020 ZOSTER VACCINE Completed 03/22/2024, 01/06/2024 HIB VACCINE Aged Out No longer eligi ble based on patient's age to complete this topic HPV VACCINE Aged Out No longer eligi ble based on patient's age to complete this topic MENINGOCOCCAL (Group B) VACCINE SHARED DECISION-MAKING Aged Out No longer eligible based on patient's age to complete this topic MENINGOCOCCAL GROUPS A/C/Y/W VACCINE Aged Out No longer eligible based on patient's age to complete this topic Procedures Procedure Name Priority Date/Time Associated Diagnosis Comments HEMOGLOBIN A1C - POINT OF CARE (AMB) [facility] Routine 02/11/2025 8:34 AM CDT Type 2 diabetes mellitus with other specified complication, with long-term current use of insulin (HCC) LIPID PROFILE Routine 02/08/2025 8:17 AM CDT Type 2 diabetes mellitus with other specified complication, with long-term current use of insulin (HCC) Hx of 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 Morbid obesity with BMI of 40.0-44.9, adult (HCC) Pacemaker CBC W AUTO DIFFERENTIAL Routine 02/08/2025 8:17 AM CDT Type 2 diabetes mellitus with other specified complication, with long-term current use of insulin (HCC) Hx of 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 Morbid obesity with BMI of 40.0-44.9, adult (HCC) Pacemaker COMPREHENSIVE METABOLIC PANEL Routine 02/08/2025 8:17 AM CDT Type 2 diabetes mellitus with other specified complication, with long-term current use of insulin (HCC) Hx of 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 Morbid obesity with BMI of 40.0-44.9, adult (HCC) Pacemaker MICROALB/CREAT RATIO URINE RANDOM PANEL Routine 02/23/2024 1:13 PM CDT Type 2 diabetes mellitus with diabetic polyneuropathy, with long-term current use of insulin MAMMO BILAT SCREENING W SAMUEL Routine 01/02/2024 3:10 PM CDT Encounter for screening mammogram for malignant neoplasm of breast from Last 3 Months or Most Recently Relevant to Health Maintenance Results * HEMOGLOBIN A1C - POINT OF CARE (AMB) [facility] (02/11/2025 8:34 AM CDT) Hemoglobin A1c POCT 6.6 % [address] BLOOD SPECIMEN / Unknown 02/11/2025 8:34 AM CDT Yasmin Gama MD LAB - POINT OF CARE ORDERABLES Final Result [address], [place] [address], [facility] [phone] * (ABNORMAL) CBC W/ DIFFERENTIAL (02/08/2025 8:17 AM CDT) WBC 5.5 3.4 - 10.8 x10E3/uL [facility] INSURANCE BILL RBC 4.58 3.77 - 5.28 x10E6/uL [facility] INSURANCE BILL Hemoglobin 12.9 11.1 - 15.9 g/dL [facility] INSURANCE BILL Hematocrit 41.1 34.0 - 46.6 % [facility] INSURANCE BILL MCV 90 79 - 97 fL [facility] INSURANCE BILL MCH 28.2 26.6 - 33.0 pg [facility] INSURANCE BILL MCHC 31.4(L) 31.5 - 35.7 g/dL [facility] INSURANCE BILL RDW 13.0 11.7 - 15.4 % [facility] INSURANCE BILL Platelet Count 175 150 - 450 x10E3/uL [facility] INSURANCE BILL Granulocytes % 67 Not Estab. % [facility] INSURANCE BILL Lymphocytes % 26 Not Estab. % [facility] INSURANCE BILL Monocytes % 6 Not Estab. % [facility] INSURANCE BILL Eosinophils % 0 Not Estab. % [facility] INSURANCE BILL Basophils % 1 Not Estab. % [facility] INSURANCE BILL Granulocytes Absolute 3.7 1.4 - 7.0 x10E3/uL [facility] INSURANCE BILL Lymphocytes Absolute 1.4 0.7 - 3.1 x10E3/uL [facility] INSURANCE BILL Monocytes Absolute 0.3 0.1 - 0.9 x10E3/uL [facility] INSURANCE BILL Eosinophils Absolute 0.0 0.0 - 0.4 x10E3/uL [facility] INSURANCE BILL Basophils Absolute 0.0 0.0 - 0.2 x10E3/uL [facility] INSURANCE BILL Immature Granulocytes 0 Not Estab. % [facility] INSURANCE BILL Immature Granulocytes Absolute 0.0 0.0 - 0.1 x10E3/uL [facility] INSURANCE BILL Blood BLOOD SPECIMEN / Unknown 02/08/2025 8:17 AM CDT 02/08/2025 Narrative [facility] INSURANCE BILL - 02/09/2025 7:08 AM CDT Performed at: [address] [place] [id number] Migratory Worker: Catracho Bowen PhD, Phone: [phone] us Yasmin Gama MD LAB - HEMATOLOGY ORDERABLES Fin al Result [facility] INSURANCE BILL [address] [place] [address] * (ABNORMAL) COMPREHENSIVE METABOLIC PANEL (02/08/2025 8:17 AM CDT) [facility] Signature Glucose 124(H) 70 - 99 mg/dL [facility] INSURANCE BILL BUN 16 8 - 27 mg/dL [facility] INSURANCE BILL Creatinine 0.59 0.57 - 1.00 mg/dL [facility] INSURANCE BILL eGFR by CKD-EPI 99 >59 mL/min/1.7 3 [facility] INSURANCE BILL BUN/Creatinine Ratio 27 12 - 28 [facility] INSURANCE BILL Sodium 142 134 - 144 mmol/L [facility] INSURANCE BILL Potassium 4.1 3.5 - 5.2 mmol/L [facility] INSURANCE BILL Chloride 104 96 - 106 mmol/L [facility] INSURANCE BILL CO2 25 20 - 29 mmol/L [facility] INSURANCE BILL Calcium 8.8 8.7 - 10.3 mg/dL [facility] INSURANCE BILL Protein Total 6.1 6.0 - 8.5 g/dL [facility] INSURANCE BILL Albumin 4.1 3.9 - 4.9 g/dL [facility] INSURANCE BILL Globulin Total 2.0 1.5 - 4.5 g/dL [facility] INSURANCE BILL Bilirubin Total 0.5 0.0 - 1.2 mg/dL [facility] INSURANCE BILL Alkaline Phosphatase 80 44 - 121 IU/L [facility] INSURANCE BILL Comment: Effective February 17, 2025 Alkaline Phosphatase reference interval will be changing to: Age Male Female 0 - 5 days 47 - 127 47 - 127 6 - 10 days 29 - 242 29 - 242 11 - 20 days 109 - 357 109 - 357 21 - 30 days 94 - 494 94 - 494 1 - 2 months 149 - 539 149 - 539 3 - 6 months 131 - 452 131 - 452 7 - 11 months 117 - 401 117 - 401 12 months - 6 years 158 - 369 158 [...] years 48 - 129 48 - 129 AST 17 0 - 40 IU/L [facility] INSURANCE BILL ALT 29 0 - 32 IU/L [facility] INSURANCE BILL Blood BLOOD SPECIMEN / Unknown 02/08/2025 8:17 AM CDT 02/08/2025 Narrative [facility] INSURANCE BILL - 02/09/2025 7:08 AM CDT Performed at: 01 - [facility] [address] [place], [place] [id number] Migratory Worker: Catracho Bowen PhD, Phone: [phone] us Yasmin Gama MD LAB - CHEMISTRY ORDERABLES Inna l Result [facility] INSURANCE BILL [address] [place] [address] * LIPID PROFILE (02/08/2025 8:17 AM CDT) Cholesterol 141 100 - 199 mg/dL [facility] INSURANCE BILL Triglycerides 114 0 - 149 mg/dL [facility] INSURANCE BILL HDL Cholesterol 69 >39 mg/dL [facility] BILL VLDL Calculated 20 5 - 40 mg/dL [facility] INSURANCE BILL LDL Calculated 52 0 - 99 mg/dL [facility] INSURANCE BILL Blood BLOOD SPECIMEN / Unknown 02/08/2025 8:17 AM CDT 02/08/2025 Narrative [facility] INSURANCE BILL - 02/09/2025 7:08 AM CDT Performed at: 01 - [address] [id number] Migratory Worker: Catracho Bowen PhD, Phone: [phone] us Yasmin Gama MD LAB - CHEMISTRY ORDERABLES Inna l Result Performing Organization Address City/[facility]/ZIP Co de Phone Number [facility] INSURANCE BILL [address] [place] [address] * MICROALB/CREAT RATIO URINE RANDOM PANEL (02/23/2024 1:13 PM CDT) Creatinine Urine 95.3 Not Estab. mg/dL [facility] ACCOUNT BILL Microalbumin Urine 16.8 Not Estab. ug/mL [facility] ACCOUNT BILL Microalbumin/Crea tinine Ratio 18 0 - 29 mg/g creat [facility] ACCOUNT BILL Comment: Normal: 0 - 29 Moderately increased: 30 - 300 Severely increased: >300 Urine URINE SPECIMEN OBTAINED BY CLEAN CATCH PROCEDURE / Unknown 02/23/2024 1:13 PM CDT 02/26/2024 Comment:Urine Random Release Narrative [facility] ACCOUNT BILL - 02/27/2024 9:07 AM CDT Performed at: - [address] [id number] Migratory Worker: Catracho Bowen PhD, Phone: [phone] us Cristina Perkins MISSILEMAN-TOUR COUNSELOR LAB - URINE CHEMISTRY ORDERABLES Final Result Performing Organization Address [facility] Co de Phone Number [facility] ACCOUNT BILL [address] [place] [address] * Mammo Bilat Screening W Samuel (01/02/2024 [...] is the patient's baseline mammogram. . TECHNIQUE: BILATERAL digital breast tomosynthesis (DBT) and synthetic 2D digital mammogram images were obtained (bilateral craniocaudal and mediolateral oblique projections) including computer aided detection (CAD.) BREAST PARENCHYMAL COMPOSITION:Category B: There are scattered areas of fibroglandular density. MAMMOGRAM FINDINGS: There are no suspicious masses, calcifications, or areas of architectural distortion in either breast. Debbie Doran MD MAMMO ORDERABLES Final Result from Last 3 Months or Most Recently Relevant to Health Maintenance Insurance [facility] MANAGED MEDICARE ADV Care Teams Pollution Control Engineer Relationship Specialty Start Date End Date Nayana Laura MD [address] [place] [address] PCP - General Emergency Medicine 10/21/24
== END 2025-03-07 15:06 | disposition home or self-care (01) ==
PROVIDERS: PCP Emergency Medicine; Visit Provider Emergency Medicine
DX: R05.1 Acute cough (principal)
CPT/HCPCS: 71046